=== PATIENT | female | born 1960 | race Caucasian/White ===

== ENCOUNTER 2018-03-04 09:44 | Inpatient (IN) ==
[2018-03-04] MEDS ORDERED: Morphine Inj 4 MG/ML Vial IV.PUSH ONE (09:54)
--- NOTE | 2018-03-04 09:59 | ED ---
HPI General Chief complaint: Back Pain/Injury Stated complaint: Left Flank pain complaint Time Seen by Provider: 03/04/18 09:49 Source: patient Mode of arrival: EMS Limitations: no limitations History of Present Illness HPI narrative: 58-year-old female brought in by ambulance from home for evaluation of severe left flank pain, nausea, and vomiting. Patient reports that the pain started at around 3:30 PM yesterday evening, has been constant, progressively worsening, described as cramping, nonradiating. The pain kept her up throughout the night, and this morning she began to experience nausea and vomiting. She reports history of nonfunctioning right kidney secondary to ureteral stricture as a child. She reports history of pancreatitis, however she states that the pain today feels different. She denies fevers or chills. No paresthesias or motor deficits. No dysuria, hematuria, or pyuria. She tried taking Tylenol and hydrocodone at home without improvement in her pain. Related Data Home Medications Medication Instructions Recorded Confirmed escitalopram oxalate 15 mg PO DAILY 03/04/18 03/04/18 hydrocodone-acetaminophen 1 tab PO Q12H PRN 03/04/18 03/04/18 Allergies Allergy/AdvReac Type Severity Reaction Status Date / Time No Known Allergies Allergy Verified 03/04/18 09:54 Review of Systems ROS: all other systems reviewed are negative [facility] Medical History Medical History Depression (Acute) Osteoporosis (Acute) Pancreatitis (Acute) Social History Social History Second Hand Smoke Exposure: Yes Smoking Status: Current every day smoker Tobacco Type: Cigarettes How Often Do You Have a Drink Containing Alcohol: Never Recent Travel in [facility] within the Last 8 Weeks: No Recent Out of Country Travel within the Last 8 Weeks: No Exam Narrative Exam Narrative: GENERAL: Well-developed, thin, appears very uncomfortable SKIN: Focused skin assessment warm/dry. No rash. HEAD: Atraumatic. Normocephalic. EYES: Pupils equal and round. No scleral icterus. No injection or drainage. ENT: No nasal bleeding or discharge. Mucous membranes pink and moist. NECK: Trachea midline. No JVD. CARDIOVASCULAR: Regular rate and rhythm. RESPIRATORY: No accessory muscle use. Clear to auscultation. Breath sounds equal bilaterally. GASTROINTESTINAL: Abdomen soft, non-tender, nondistended. MUSCULOSKELETAL: No obvious deformities. No clubbing. No cyanosis. No edema. No midline vertebral step-off or tenderness. No right CVA tenderness. Mild left CVA tenderness. NEUROLOGICAL: Awake and alert. No obvious cranial nerve deficits. Motor grossly within normal limits. Normal speech. PSYCHIATRIC: Appropriate mood and affect; insight and judgment normal. Course Initial Documented Vital Signs Pulse Rate 90 03/04/18 09:49 Respiratory Rate 20 03/04/18 09:49 Blood Pressure 145/94 H 03/04/18 09:49 Pulse Oximetry 96 03/04/18 09:49 Last Documented Vital Signs Pulse Rate 85 03/04/18 09:55 Respiratory Rate 20 03/04/18 09:55 Blood Pressure 145/94 H 03/04/18 09:49 Pulse Oximetry 97 03/04/18 09:55 Critical Care Time Critical Care Time: Yes Total Critical Care Time: 35 Attestation: Aggregate critical care time was 35 minutes. Time to perform other separately billable procedures was not included in the critical care time. My time did not include minutes spent treating any other patients simultaneously or on activities that did not directly contribute to the patient's treatment. The services I provided to this patient were to treat and/or prevent clinically significant deterioration that could result in: , sepsis, permanent disability I provided critical care services requiring my management, as noted below: Chart data review, documentation time, medication orders and management, vital sign assessments/reviewing monitor data, ordering and reviewing lab tests, ordering and interpreting/reviewing x-rays and diagnostic studies, care of the patient and discussion of the patient with the admitting physicians. Medical Decision Making MDM Narrative Medical decision making narrative: Vital signs reviewed. Labs reviewed and the patient has a slight leukocytosis of 17,000 and a lipase of 20,000. UA is not suggestive of UTI. CT abdomen pelvis: CONCLUSION:1. Dilatation of the common bile duct measuring up to 1.3 cm with an 8 to 9 mm round soft tissue masslike structure which extends into the fluid- filled duodenum. 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 The gallbladder is unremarkable.2. Fluid in the left upper abdomen surrounding portions of the body and tail the pancreas as well as portions of the spleen. The finding is nonspecific and the differential diagnosis includes pancreatitis.The left kidney appears unremarkable.3. Small atrophic right kidney. Patient was given 4 mg of morphine with some improvement in her initial pain. Upon return from CT scan her pain began to significantly worsen. She will be given a dose of Dilaudid. She was also given a liter of normal saline IV bolus and started on a continuous normal saline drip. She was made aware of all findings. Her LFTs are normal. 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 Case discussed with hospitalist Dr. Arevalo who will admit the patient to his service. Medical Screen Exam Complete: Yes Emergency Medical Condition: Yes Differential Diagnosis Differential Diagnosis: Nephrolithiasis, ureterolithiasis, pyelonephritis, musculoskeletal pain, pancreatitis, gastritis, dissection/AAA Lab Data Result diagrams: 03/04/18 10:00 03/04/18 10:00 Lab Results 03/04/18 03/04/18 03/04/18 Range/Units 10:00 10:00 10:00 WBC 17.9 H (4.0-11.0) th/mm3 RBC 4.23 (4.00-5.30) mil/mm3 Hgb 13.9 (11.6-15.3) gm/dL Hct 41.1 (35.0-46.0) % MCV 97.1 (80.0-100.0) fL MCH 32.8 (27.0-34.0) pg MCHC 33.8 (32.0-36.0) % RDW 14.4 (11.6-17.2) % Plt Count 390 (150-450) th/mm3 MPV 7.3 (7.0-11.0) fL Neut % (Auto) 80.0 H (16.0-70.0) % Lymph % (Auto) 14.1 (9.0-44.0) % Woods % (Auto) 4.7 (0.0-8.0) % Eos % (Auto) 1.0 (0.0-4.0) % Baso % (Auto) 0.2 (0.0-2.0) % Neut # (Auto) 14.4 H (1.8-7.7) th/mm3 Lymph # (Auto) 2.5 (1.0-4.8) th/mm3 Woods # (Auto) 0.8 (0.0-0.9) th/mm3 Eos # (Auto) 0.2 (0.0-0.4) th/mm3 Baso # (Auto) 0.0 (0.0-0.2) th/mm3 WBC Differential . Differential Comment Auto diff final PT 10.7 (9.8-11.6) sec INR 1.1 Ratio APTT 20.9 L (23.4-31.7) sec Sodium 139 (136-145) meq/L Potassium 3.9 (3.5-5.1) meq/L Chloride 108 H (98-107) meq/L Carbon Dioxide 19.7 L (21.0-32.0) meq/L Anion Gap 11 (5-15) meq/L BUN 13 (7-18) mg/dL Creatinine 1.16 H (0.50-1.00) mg/dL Estimated GFR 48 L (>89) mL/min Random Glucose 164 H (74-106) mg/dL Calcium 8.6 (8.5-10.1) mg/dL Magnesium 1.7 (1.5-2.5) mg/dL Total Bilirubin 0.5 (0.2-1.0) mg/dL AST 18 (15-37) U/L ALT 14 (10-53) U/L Alkaline Phosphatase 92 (45-117) U/L Total Protein 7.5 (6.4-8.2) g/dL Albumin 4.1 (3.4-5.0) g/dL Lipase 24420 H (73-393) U/L Urine Color (Yellw/Straw) Urine Clarity (Clear) Urine pH (5.0-8.5) Ur Specific [place] (1.002-1.035) Urine Protein (Neg-Trace) mg/dL Urine Glucose (UA) (Negative) mg/dL Urine Ketones (Negative) mg/dL Urine Occult Blood (Negative) Urine Nitrate (Negative) Urine Bilirubin (Negative) Urine Urobilinogen (Less than 2) mg/dL Ur Leukocyte Esterase (Negative) Urine RBC (0-3) /hpf Urine WBC (0-5) /hpf Ur Squamous Epith Cells (0-5) /hpf Urine Mucus (Occasional) /lpf Micro UA Comment Ur Microscopic Review Urine Culture Comments 03/04/18 Range/Units 10:00 WBC (4.0-11.0) th/mm3 RBC (4.00-5.30) mil/mm3 Hgb (11.6-15.3) gm/dL Hct (35.0-46.0) % MCV (80.0-100.0) fL MCH (27.0-34.0) pg MCHC (32.0-36.0) % RDW (11.6-17.2) % Plt Count (150-450) th/mm3 MPV (7.0-11.0) fL Neut % (Auto) (16.0-70.0) % Lymph % (Auto) (9.0-44.0) % Woods % (Auto) (0.0-8.0) % Eos % (Auto) (0.0-4.0) % Baso % (Auto) (0.0-2.0) % Neut # (Auto) (1.8-7.7) th/mm3 Lymph # (Auto) (1.0-4.8) th/mm3 Woods # (Auto) (0.0-0.9) th/mm3 Eos # (Auto) (0.0-0.4) th/mm3 Baso # (Auto) (0.0-0.2) th/mm3 WBC Differential Differential Comment PT (9.8-11.6) sec INR Ratio APTT (23.4-31.7) sec Sodium (136-145) meq/L Potassium (3.5-5.1) meq/L Chloride (98-107) meq/L Carbon Dioxide (21.0-32.0) meq/L Anion Gap (5-15) meq/L BUN (7-18) mg/dL Creatinine (0.50-1.00) mg/dL Estimated GFR (>89) mL/min Random Glucose (74-106) mg/dL Calcium (8.5-10.1) mg/dL Magnesium (1.5-2.5) mg/dL Total Bilirubin (0.2-1.0) mg/dL AST (15-37) U/L ALT (10-53) U/L Alkaline Phosphatase (45-117) U/L Total Protein (6.4-8.2) g/dL Albumin (3.4-5.0) g/dL Lipase (73-393) U/L Urine Color Yellow (Yellw/Straw) Urine Clarity Clear (Clear) Urine pH 5.0 (5.0-8.5) Ur Specific [place] 1.013 (1.002-1.035) Urine Protein Negative (Neg-Trace) mg/dL Urine Glucose (UA) Negative (Negative) mg/dL Urine Ketones Negative (Negative) mg/dL Urine Occult Blood Negative (Negative) Urine Nitrate Negative (Negative) Urine Bilirubin Negative (Negative) Urine Urobilinogen Less than 2 (Less than 2) mg/dL Ur Leukocyte Esterase Negative (Negative) Urine RBC 1 (0-3) /hpf Urine WBC Less than 1 (0-5) /hpf Ur Squamous Epith Cells 1 (0-5) /hpf Urine Mucus Few H (Occasional) /lpf Micro UA Comment Culture not ind Ur Microscopic Review Not Reportable Urine Culture Comments Culture not ind Imaging Data Radiologist's impression: Abdomen/Pelvis CT 03/04/18 09:54 CONCLUSION: 1. Dilatation of the common bile duct measuring up to 1.3 cm with an 8 to 9 mm round soft tissue masslike structure which extends into the fluid-filled duodenum. 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 The gallbladder is unremarkable. 2. Fluid in the left upper abdomen surrounding portions of the body and tail the pancreas as well as portions of the spleen. The finding is nonspecific and the differential diagnosis includes pancreatitis. The left kidney appears unremarkable. 3. Small atrophic right kidney. Discharge Plan Discharge Disposition Patient Disposition: ED Admit(ED Internal Use Only) Discharge Condition Condition: Fair Discharge Details Diagnosis: Acute pancreatitis Physicians Team ED Provider: Butch Burleson Primary Care Provider: [facility] /Orders / Referrals /Forms Prescriptions: No Action hydrocodone-acetaminophen 10-325 mg Tablet 1 tab PO Q12H PRN (Reason: Pain) RF: 0 escitalopram oxalate 10 mg Tablet 15 mg PO DAILY RF: 0 Status ED Status: With Doctor
[2018-03-04 10:20] LABS: Baso % (Auto) 0.2 % (0.0-2.0); Eos # (Auto) 0.2 th/mm3 (0.0-0.4); Hematocrit 41.1 % (35.0-46.0); Hemoglobin 13.9 gm/dL (11.6-15.3); Lymph # (Auto) 2.5 th/mm3 (1.0-4.8); Lymph % (Auto) 14.1 % (9.0-44.0); Mean Corpuscular HGB Conc 33.8 % (32.0-36.0); Mean Corpuscular Hemoglobin 32.8 pg (27.0-34.0); Mean Corpuscular Volume 97.1 fL (80.0-100.0); Mean Platelet Volume 7.3 fL (7.0-11.0); Mono # (Auto) 0.8 th/mm3 (0.0-0.9); Mono % (Auto) 4.7 % (0.0-8.0); Neut # (Auto) 14.4 th/mm3 (1.8-7.7); Platelet Count 390 th/mm3 (150-450); Red Blood Count 4.23 mil/mm3 (4.00-5.30); Red Cell Distribution Width 14.4 % (11.6-17.2); White Blood Count 17.9 th/mm3 (4.0-11.0)
[2018-03-04 10:28] LABS: Activated Partial Thrombo Time 20.9 sec (23.4-31.7); INR 1.1 Ratio; Prothrombin Time 10.7 sec (9.8-11.6)
[2018-03-04 10:30] LABS: Albumin 4.1 g/dL (3.4-5.0); Anion Gap 11 meq/L (5-15); Aspartate Aminotransferase 18 U/L (15-37); Blood Urea Nitrogen 13 mg/dL (7-18); Calcium 8.6 mg/dL (8.5-10.1); Carbon Dioxide 19.7 meq/L (21.0-32.0); Chloride 108 meq/L (98-107); Glomerular Filtration Rate 48 mL/min (>89); Glucose,Random 164 mg/dL (74-106); Magnesium 1.7 mg/dL (1.5-2.5); Potassium 3.9 meq/L (3.5-5.1); Sodium 139 meq/L (136-145)
[2018-03-04 10:32] LABS: Alanine Aminotransferase 14 U/L (10-53)
[2018-03-04 10:33] LABS: Alkaline Phosphatase 92 U/L (45-117); Total Protein 7.5 g/dL (6.4-8.2)
[2018-03-04 10:37] LABS: Lipase 28791 U/L (73-393)
[2018-03-04] MEDS ORDERED: Sod Chloride 0.9% Inj 1,000 ML IV.SIG SCH (11:00)
[2018-03-04 11:33] LABS: Bilirubin,Urine Negative (Negative); Clarity,Urine Clear (Clear); Color,Urine Yellow (Yellw/Straw); Glucose,Urine (UA) Negative (Negative); Leukocyte Esterase,Urine Negative (Negative); Mucus,Urine Few /lpf (Occasional); Nitrite,Urine Negative (Negative); Specific Gravity,Urine 1.013 (1.002-1.035); Squamous Epithelial Cell,Urine 1 /hpf (0-5)
--- NOTE | 2018-03-04 11:43 | CT ---
EXAM DATE: 03/04/2018 11:25 AM EST AGE/SEX: 58 years / Female INDICATIONS: Left flank pain. Nausea and vomiting. CLINICAL DATA: This is the patient's initial encounter. Patient reports that signs and symptoms have been present for 1 day and indicates a pain score of 8/10. MEDICAL/SURGICAL HISTORY: Pancreatitis. Osteoporosis. None. ORAL CONTRAST: No oral contrast ingested. RADIATION DOSE: 4.49 CTDI (mGy) COMPARISON: No prior exams available for comparison. TECHNIQUE: Multiple contiguous axial images were obtained through the abdomen and pelvis following b olus infusion of 96 ml Omnipaque 350 (iohexol) nonionic water-soluble contrast as a single exam dos e. No oral contrast ingested. Using automated exposure control and adjustment of the mA and/or kV ac cording to patient size, radiation dose was kept as low as reasonably achievable to obtain optimal di agnostic quality images. DICOM format image data is available electronically for review and comparis on. FINDINGS: Lower Lungs: The visualized lower lungs are clear. Liver: The liver is normal in size and shape with no focal mass or intrahepatic biliary ductal dilata tion. The common bile duct is dilated and measures up to 1.3 cm in diameter. This tapers down slightl y at the level of the head of the pancreas with 8 to 9 mm rounded soft tissue masslike structure whic h extends into the fluid-filled duodenum. There is mild hepatic steatosis. The gallbladder appears un remarkable with no calcified gallstones. Spleen: Homogeneous density without enlargement. There is surrounding ascitic fluid greatest along t he posterior and medial spleen. Pancreas: The pancreas is normal in size, shape and attenuation value with no focal lesion. There is fluid surrounding portions of the body and tail with fluid extending into the left upper quadrant jones rrounding portions of the spleen.. Kidneys: The left kidney is unremarkable in appearance. The right kidney is extremely small and atro phic with minimal residual enhancing cortical tissue. Adrenal Glands: Unremarkable. Aorta: The aorta and proximal iliac vessels are grossly unremarkable without aneurysmal dilation. Bowel/Mesentery: The bowel loops are grossly unremarkable. The cecum and sigmoid colon have a normal configuration. Abdominal Wall: Intact. Retroperitoneum: No evidence of adenopathy in the retrocrural, para-aortic, or deep pelvic regions. Bladder: Contours are smooth. Reproductive Organs: No abnormal masses or calcifications seen. Inguinal: The inguinal region is unremarkable without evidence of adenopathy. Bony Structures: Degenerative changes, scoliosis and osteopenia are present. CONCLUSION: 1. Dilatation of the common bile duct measuring up to 1.3 cm with an 8 to 9 mm round soft tissue mas slike structure which extends into the fluid-filled duodenum. This is of concern for possible ampulla ry tumor. The gallbladder is unremarkable. 2. Fluid in the left upper abdomen surrounding portions of the body and tail the pancreas as well as portions of the spleen. The finding is nonspecific and the differential diagnosis includes pancreati tis. The left kidney appears unremarkable. 3. Small atrophic right kidney. Electronically signed by: Molina Mcdaniels MD Board Certified Radiologist 03/04/2018 11:42 AM WES T
[2018-03-04] MEDS ORDERED: HYDROmorphone PF Inj 2 MG/ML Vial IV.PUSH ONE (11:59)
[2018-03-04] MEDS ORDERED: Sod Chloride 0.9% Inj 1,000 ML IV.CONT SCH (13:00)
--- NOTE | 2018-03-04 13:08 | P.HPIM ---
History of Present Illness Primary Care Physician: [facility] History of Present Illness: This patient is a 58 y/o F with a diagnosis of osteoarthritis, hx of right ureteral stricture which led to right sided kidney failure. She has an extensive tobacco smoking hx. She presents to the ED with complaints of abdominal pain for the past few days that worsened yesterday. She also began to have nausea and vomiting. She has a hx of pancreatitis nearly one yr ago however is unsure of what the cause was at that time. She denies any recent alcohol use. She denies any fevers or chills. No other complaints from the patient. No chest pain, no diarrhea, last bm two days ago. PMH right ureteral stricture, osteoarthritis surg hx right hand surgery x 5 after a crush injury in the social hx 1 /2 ppd tobacco smoking since age 19, drinks etoh socially, denies hx of drug use fam hx cad in her father Inpatient Certification: I certify that the inpatient services were ordered in accordance with Medicare regulations governing the order. This includes certification that hospital inpatient services are reasonable and necessary and in the case of services not specified as inpatient-only under 42 CFR 419.22(n), that they are appropriately provided as inpatient services in accordance to with the 2-midnight benchmark under 43 CFR 412.3(e) Estimated Total Length of Stay (Days): 3 Plans for Post Hospital Care: Home Review of Systems All other systems reviewed negative except as stated in HPI PMFSH - History History Provided By: Patient, Medical Claims Representative / EMT - Medical History Medical History: Medical History (Last Updated 03/04/18 @ 09:55 by Lary Schmitt RN) Depression Osteoporosis Pancreatitis - Tobacco History Second Hand Smoke Exposure: Yes Tobacco Use In Past 30 Days: Yes Smoking Status: Current every day smoker Tobacco Type: Cigarettes - Alcohol History How Often Do You Have a Drink Containing Alcohol: Never - Travel History Recent Travel in the [place] Within the Last 8 Weeks: No Recent Travel Out of the Country Within the Last 8 Weeks: No - Immunization History Tetanus Immunization: <5 Years Medications and Allergies Active Medications: Active Medications Sodium Chloride (Ns Inj) 1,000 mls @ 150 mls/hr IV.CONT .[id number] MARIANNE Morphine Sulfate (Morphine Inj) 2 mg IV.PUSH Q4H PRN PRN Reason: Acute Pain Ondansetron HCl (Zofran Inj) 4 mg IV.PUSH Q6H PRN PRN Reason: NAUSEA OR VOMITING Sodium Chloride (Ns Flush) 2 ml IV.FLUSH PRN PRN PRN Reason: FLUSH AFTER USING IV ACCESS Last Admin: 03/04/18 10:00 Dose: 2 ml Allergies Allergy/AdvReac Type Severity Reaction Status Date / Time No Known Allergies Allergy Verified 03/04/18 09:54 Home Medications Medication Instructions Recorded Confirmed Type escitalopram oxalate 15 mg PO DAILY 03/04/18 03/04/18 History hydrocodone-acetaminophen 1 tab PO Q12H PRN 03/04/18 03/04/18 History Exam Vital signs: Vital Signs 03/04/18 09:49 03/04/18 09:55 03/04/18 12:52 Pulse Rate 90 85 87 Respiratory Rate 20 20 18 Blood Pressure 145/94 H Pulse Oximetry 96 97 95 Intake & Output 03/03/18 03/04/18 03/04/18 18:59 06:59 18:59 Intake Total 1000 / 1000 Balance 1000 / 1000 Weight 45.813 kg Intake: IV 1000 / 1000 NS Inj 1,000 ML @ 1000 mls/hr 1000 / 1000 IV.SIG BOLUS [facility] Rx#:[id number] Narrative: Alert and oriented x 3 S1 S2 CTA b/l Complains of diffuse abd pain, pain on palpation in all 4 quadrants. Bowel sounds pos no edema, no palpable lymphadenopathy no neurological deficits. Results - Labs CBC & Chem 7: 03/04/18 10:00 03/04/18 10:00 Labs: Short CBC 03/04/18 Range/Units 10:00 WBC 17.9 H (4.0-11.0) th/mm3 Hgb 13.9 (11.6-15.3) gm/dL Hct 41.1 (35.0-46.0) % Plt Count 390 (150-450) th/mm3 BMP 03/04/18 10:00 Sodium 139 Potassium 3.9 Chloride 108 H Carbon Dioxide 19.7 L BUN 13 Creatinine 1.16 H Calcium 8.6 Liver Function 03/04/18 Range/Units 10:00 Total Bilirubin 0.5 (0.2-1.0) mg/dL AST 18 (15-37) U/L ALT 14 (10-53) U/L Alkaline Phosphatase 92 (45-117) U/L Albumin 4.1 (3.4-5.0) g/dL Urine 03/04/18 Range/Units 10:00 Urine Color Yellow (Yellw/Straw) Urine Clarity Clear (Clear) Urine pH 5.0 (5.0-8.5) Ur Specific [place] 1.013 (1.002-1.035) Urine Protein Negative (Neg-Trace) mg/dL Urine Glucose (UA) Negative (Negative) mg/dL - Imaging Impressions Abdomen/Pelvis CT 03/04/18 09:54 CONCLUSION: 1. Dilatation of the common bile duct measuring up to 1.3 cm with an 8 to 9 mm round soft tissue masslike structure which extends into the fluid-filled duodenum. 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 The gallbladder is unremarkable. 2. Fluid in the left upper abdomen surrounding portions of the body and tail the pancreas as well as portions of the spleen. The finding is nonspecific and the differential diagnosis includes pancreatitis. The left kidney appears unremarkable. 3. Small atrophic right kidney. Caprini VTE Risk Assessment Caprini VTE Risk Assessment: Moderate/High Risk (score >= 2) Caprini Risk Assessment Model: Point Value = 1 Point Value = 2 Point Value = 3 Point Value = 5 Age 41-60 Minor surgery BMI > 25 kg/m2 Swollen legs Varicose veins or History of unexplained or recurrent spontaneous Oral contraceptives or hormone replacement Sepsis (< 1 month) Serious lung disease, including pneumonia (< 1 month) Abnormal pulmonary function Acute myocardial infarction Congestive heart failure (< 1 month) History of inflammatory bowel disease Medical patient at bed rest Age 61-74 Arthroscopic surgery Major open surgery (> 45 min) Laparoscopic surgery (> 45 min) Malignancy Confined to bed (> 72 hours) Immobilizing plaster cast Central venous access Age >= 75 History of VTE Family history of VTE Factor V Leiden Prothrombin [id number] Lupus anticoagulant Anticardiolipin antibodies Elevated serum homocysteine Heparin-induced thrombocytopenia Other congenital or acquired thrombophilia Stroke (< 1 month) Elective arthroplasty Hip, pelvis, or leg fracture Acute spinal cord injury (< 1 month) Prophylaxis Regimen: Total Risk Factor Score Risk Level Prophylaxis Regimen 0-1 Low Early ambulation 2 Moderate Order ONE of the following: *Sequential Compression Device (SCD) *Heparin 5000 units SQ BID 3-4 Higher Order ONE of the following medications: *Heparin 5000 units SQ TID *Enoxaparin/Lovenox 40 mg SQ daily (WT < 150 kg, CrCl > 30 mL/min) *Enoxaparin/Lovenox 30 mg SQ daily (WT < 150 kg, CrCl > 10-29 mL/min) *Enoxaparin/Lovenox 30 mg SQ BID (WT < 150 kg, CrCl > 30 mL/min) AND/OR *Sequential Compression Device (SCD) 5 or more Highest Order ONE of the following medications: *Heparin 5000 units SQ TID (Preferred with Epidurals) *Enoxaparin/Lovenox 40 mg SQ daily (WT < 150 kg, CrCl > 30 mL/min) *Enoxaparin/Lovenox 30 mg SQ daily (WT < 150 kg, CrCl > 10-29 mL/min) *Enoxaparin/Lovenox 30 mg SQ BID (WT < 150 kg, CrCl > 30 mL/min) AND *Sequential Compression Device (SCD) Assessment and Plan - Plan This patient is a 58 y/o F with a diagnosis of osteoarthritis, hx of right ureteral stricture which led to right sided kidney failure. She has an extensive tobacco smoking hx. She presents to the ED with complaints of abdominal pain for the past few days that worsened yesterday. She also began to have nausea and vomiting. She has a hx of pancreatitis nearly one yr ago however is unsure of what the cause was at that time. She denies any recent alcohol use. She denies any fevers or chills. 1. 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 WBC count elevated. No fevers, no chills. Ct abd/pelv shows dilation of the cbd 1.3 cm with 9mm round mass that extends into the duodenum. Pancreas shows findings consistent with pancreatitis [place] [id number] Atrophic right kidney Patient will be kept on ivf at 175, patient bolused 1 L in the ED. Will continue to monitor the patient GI consulted, will follow up with their recs Strict NPO. Morphine for pain. Will adjust depending on patients needs. No active signs of infection other than leukocytosis, will continue to monitor. If the patient spikes a fever we will start IV antibiotics. 3. Tobacco abuse Patient advised to quit smoking. Nicotine patch. DVT prophylaxis with Heparin.
[2018-03-04] MEDS: Morphine Sulfate Inj 2 MG/ML Vial IV.PUSH PRN ×3 (15:07→23:03)
[2018-03-04] MEDS: MEROPENEM VABORBACTAM IV.SIG SCH (16:53)
[2018-03-04] MEDS: SODIUM CHLOR 0.9% IV.SIG SCH (16:53)
--- NOTE | 2018-03-04 18:42 | P.CONGI ---
History of Present Illness Consult date: 03/04/18 Consult reason: Acute pancreatitis ampullary tumor Chief complaint: Acute pancreatitis History of Present Illness: This patient is a 58-year-old female with past medical history significant for depression, osteoporosis, pancreatitis, and osteoarthritis. Patient also reports history of ureteral stricture and right-sided kidney failure. Upon consultation, patient reports that she has had 3 episodes of pancreatitis. She states her last episode was 9 years ago. Patient denies any use of EtOH. States that she quit drinking 1 year ago. Patient denies any diarrhea fever or chills. Patient endorses smoking tobacco 1 pack/day. She denies any use of illicit drugs and denies any known family history of gastrointestinal disorders. 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 Review of Systems All other systems reviewed negative except as stated in HPI PMFSH - History History Provided By: Patient, [employer] / EMT - Medical History Medical History: Medical History (Last Updated 03/04/18 @ 09:55 by Lary Schmitt RN) Depression Osteoporosis Pancreatitis - Tobacco History Second Hand Smoke Exposure: Yes Tobacco Use In Past 30 Days: Yes Smoking Status: Current every day smoker Tobacco Type: Cigarettes - Alcohol History How Often Do You Have a Drink Containing Alcohol: Never - Travel History Recent Travel in the [place] Within the Last 8 Weeks: No Recent Travel Out of the Country Within the Last 8 Weeks: No - Immunization History Tetanus Immunization: <5 Years Medications and Allergies Active Medications: Active Medications Heparin Sodium (Porcine) (Heparin Inj) 5,000 units SQ Q12HR [facility] Lactated Ringer's (Lr 1000 Ml Inj) 1,000 mls @ 175 mls/hr IV.CONT .Q5H43M [facility] Last Admin: 03/04/18 16:52 Dose: 175 mls/hr Meropenem 1,000 mg/ Sodium (Chloride) 250 mls @ 83.333 mls/hr IV.SIG Q12H [facility] Last Admin: 03/04/18 16:53 Dose: 83.33 mls/hr Morphine Sulfate (Morphine Inj) 2 mg IV.PUSH Q4H PRN PRN Reason: Acute Pain Last Admin: 03/04/18 15:07 Dose: 2 mg Ondansetron HCl (Zofran Inj) 4 mg IV.PUSH Q6H PRN PRN Reason: NAUSEA OR VOMITING Last Admin: 03/04/18 16:53 Dose: 4 mg Sodium Chloride (Ns Flush) 2 ml IV.FLUSH PRN PRN PRN Reason: FLUSH AFTER USING IV ACCESS Last Admin: 03/04/18 10:00 Dose: 2 ml Allergies Allergy/AdvReac Type Severity Reaction Status Date / Time No Known Allergies Allergy Verified 03/04/18 09:54 Home Medications Medication Instructions Recorded Confirmed Type escitalopram oxalate 15 mg PO DAILY 03/04/18 03/04/18 History hydrocodone-acetaminophen 1 tab PO Q12H PRN 03/04/18 03/04/18 History Exam Vital signs: Vital Signs 03/04/18 09:49 03/04/18 09:55 03/04/18 12:52 Temperature Pulse Rate 90 85 87 Respiratory Rate 20 20 18 Blood Pressure 145/94 H Pulse Oximetry 96 97 95 03/04/18 14:03 03/04/18 16:00 Temperature 98.2 F 97.4 F L Pulse Rate 111 H 119 H Respiratory Rate 20 20 Blood Pressure 145/93 H 164/80 H Pulse Oximetry 96 94 L Intake & Output 03/03/18 03/04/18 03/04/18 18:59 06:59 18:59 Intake Total 1000 / 1000 Output Total 700 / 700 Balance 300 / 300 Weight 45.813 kg Intake: IV 1000 / 1000 NS Inj 1,000 ML @ 1000 mls/hr 1000 / 1000 IV.SIG BOLUS [facility] Rx#:[id number] Output: Urine 700 / 700 - Constitutional chronically ill appearing - Routine HEENT Exam Head: Present: normocephalic - Routine Neck Exam Present: supple - Routine Respiratory Exam Present: CTA bilaterally - Routine Cardiovascular Exam Present: RRR - Routine Abdominal Exam Present: soft, normoactive bowel sounds, tenderness. Absent: distended - Routine Skin Exam Present: dry, warm - Routine Neurological Exam Present: alert Results - Labs CBC & Chem 7: 03/04/18 10:00 03/04/18 10:00 Labs: Laboratory Results - last 24 hr 03/04/18 03/04/18 03/04/18 10:00 10:00 10:00 WBC 17.9 H RBC 4.23 Hgb 13.9 Hct 41.1 MCV 97.1 MCH 32.8 MCHC 33.8 RDW 14.4 Plt Count 390 MPV 7.3 Neut % (Auto) 80.0 H Lymph % (Auto) 14.1 [place] % (Auto) 4.7 Eos % (Auto) 1.0 Baso % (Auto) 0.2 Neut # (Auto) 14.4 H Lymph # (Auto) 2.5 [place] # (Auto) 0.8 Eos # (Auto) 0.2 Baso # (Auto) 0.0 WBC Differential . Differential Comment Auto diff final PT 10.7 INR 1.1 APTT 20.9 L Sodium 139 Potassium 3.9 Chloride 108 H Carbon Dioxide 19.7 L Anion Gap 11 BUN 13 Creatinine 1.16 H Estimated GFR 48 L Random Glucose 164 H Calcium 8.6 Magnesium 1.7 Total Bilirubin 0.5 AST 18 ALT 14 Alkaline Phosphatase 92 Total Protein 7.5 Albumin 4.1 Lipase 77581 H Urine Color Urine Clarity Urine pH Ur Specific [place] Urine Protein Urine Glucose (UA) Urine Ketones Urine Occult Blood Urine Nitrate Urine Bilirubin Urine Urobilinogen Ur Leukocyte Esterase Urine RBC Urine WBC Ur Squamous Epith Cells Urine Mucus Micro UA Comment Ur Microscopic Review Urine Culture Comments 03/04/18 10:00 WBC RBC Hgb Hct MCV MCH MCHC RDW Plt Count MPV Neut % (Auto) Lymph % (Auto) [place] % (Auto) Eos % (Auto) Baso % (Auto) Neut # (Auto) Lymph # (Auto) [place] # (Auto) Eos # (Auto) Baso # (Auto) WBC Differential Differential Comment PT INR APTT Sodium Potassium Chloride Carbon Dioxide Anion Gap BUN Creatinine Estimated GFR Random Glucose Calcium Magnesium Total Bilirubin AST ALT Alkaline Phosphatase Total Protein Albumin Lipase Urine Color Yellow Urine Clarity Clear Urine pH 5.0 Ur Specific [place] 1.013 Urine Protein Negative Urine Glucose (UA) Negative Urine Ketones Negative Urine Occult Blood Negative Urine Nitrate Negative Urine Bilirubin Negative Urine Urobilinogen Less than 2 Ur Leukocyte Esterase Negative Urine RBC 1 Urine WBC Less than 1 Ur Squamous Epith Cells 1 Urine Mucus Few H Micro UA Comment Culture not ind Ur Microscopic Review Not Reportable Urine Culture Comments Culture not ind - Imaging Impressions Abdomen/Pelvis CT 03/04/18 09:54 CONCLUSION: 1. Dilatation of the common bile duct measuring up to 1.3 cm with an 8 to 9 mm round soft tissue masslike structure which extends into the fluid-filled duodenum. 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 The gallbladder is unremarkable. 2. Fluid in the left upper abdomen surrounding portions of the body and tail the pancreas as well as portions of the spleen. The finding is nonspecific and the differential diagnosis includes pancreatitis. The left kidney appears unremarkable. 3. Small atrophic right kidney. Assessment and Plan (1) Acute pancreatitis Status: Acute Code(s): K85.90 - Acute pancreatitis without necrosis or infection, unspecified - Plan This patient is a 58-year-old female with past medical history significant for depression, osteoporosis, pancreatitis, and osteoarthritis. Patient also reports history of ureteral stricture and right-sided kidney failure. Upon consultation, patient reports that she has had 3 episodes of pancreatitis. She states her last episode was 9 years ago. Patient denies any use of EtOH. States that she quit drinking 1 year ago. Patient denies any diarrhea fever or chills. Patient endorses smoking tobacco 1 pack/day. She denies any use of illicit drugs and denies any known family history of gastrointestinal disorders. 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 Acute pancreatitis Patient reports 3 noted episodes of pancreatitis. Last being 9 years ago. Patient denies any use of EtOH. She states she quit 1 year ago. Does report now drinking occasional EtOH socially. 03/04/2018 CT abdomen and pelvis reveal the following- 1. Dilatation of the common bile duct measuring up to 1.3 cm with an 8 to 9 mm round soft tissue masslike structure which extends into the fluid-filled duodenum. 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 The gallbladder is unremarkable. 2. Fluid in the left upper abdomen surrounding portions of the body and tail the pancreas as well as portions of the spleen. The finding is nonspecific and the differential diagnosis includes pancreatitis. The left kidney appears unremarkable. 3. Small atrophic right kidney. WBC 17.9 hemoglobin 13.9 hematocrit 41.1 total bilirubin 0.5 AST 18 ALT 14 alk phos 92 lipase 28,791 Plan -Clear liquid diet -MRCP -CA 199 -Analgesics and antiemetics as per attending -Blood cultures x2 -Monitor labs-lipase -Meropenem 1 g IV every 12 hours -IV hydration -Infectious disease consult -Supportive care -Further recommendations to follow This patient has been seen by myself and Dr. Levine and this note is written on his behalf - Attending Attestation Dr. Levine (1) Acute pancreatitis Qualifiers: Pancreatitis type: other Acute pancreatitis complication: no infection or necrosis Qualified Code(s): K85.80 - Other acute pancreatitis without necrosis or infection
[2018-03-04] MEDS ORDERED: Gadobutrol PF 2 MMOL/2 ML Vial (for RAD) IV.SIG ONE (20:17)
[2018-03-04] MEDS: Heparin - SQ 10,000 UNITS/ML Vial SQ SCH (20:24)
--- NOTE | 2018-03-04 20:28 | MR ---
EXAM DATE: 03/04/2018 8:20 PM EST AGE/SEX: 58 years / Female INDICATIONS: Abnormal CT scan. CLINICAL DATA: This is the patient's initial encounter. Patient reports that signs and symptoms have been present for 1 day and indicates a pain score of 4/10. MEDICAL/SURGICAL HISTORY: None. . Right hand surgeries. COMPARISON: No prior exams available for comparison. TECHNIQUE: Multisequence, multiplanar MRI examination was performed without contrast and after the in travenous administration of 4.5 ml Gadavist (gadobutrol) contrast as a single exam dose. FINDINGS: There is a small left pleural effusion with slight ascites in the upper abdomen particularly in the p erihepatic space and left lung base consolidation is present. The right kidney is small and shrunken chronic in nature. Common bile duct measures 8 mm. A clear mass is not present, however there is a stricture involving distal common bile duct prior to ampulla of Vater with possible invagination of the ampulla into the duodenal lumen. CONCLUSION: 1. Dilated common bile duct and is a stricture that appears to be smooth involving the distal common bile duct at the level of the ampulla with possible slight invagination into the lumen of the duoden um. May consider further evaluation with direct visualization and endoscopy. Electronically signed by: Constance Fox MD Board Certified Radiologist 03/04/2018 8:27 PM EST
[2018-03-05] MEDS: Morphine Sulfate Inj 2 MG/ML Vial IV.PUSH PRN ×5 (02:57→23:03)
[2018-03-05] MEDS: MEROPENEM VABORBACTAM IV.SIG SCH ×2 (03:00→16:06)
[2018-03-05] MEDS: SODIUM CHLOR 0.9% IV.SIG SCH ×2 (03:00→16:06)
[2018-03-05 09:13] LABS: Baso % (Auto) 0.1 % (0.0-2.0); Hematocrit 37.6 % (35.0-46.0); Hemoglobin 12.7 gm/dL (11.6-15.3); Lymph # (Auto) 1.3 th/mm3 (1.0-4.8); Mean Corpuscular HGB Conc 33.8 % (32.0-36.0); Mean Corpuscular Hemoglobin 32.5 pg (27.0-34.0); Mean Corpuscular Volume 96.3 fL (80.0-100.0); Mean Platelet Volume 7.5 fL (7.0-11.0); Mono # (Auto) 1.1 th/mm3 (0.0-0.9); Neut # (Auto) 18.9 th/mm3 (1.8-7.7); Neut % (Auto) 88.9 % (16.0-70.0); Platelet Count 331 th/mm3 (150-450); Red Blood Count 3.91 mil/mm3 (4.00-5.30); Red Cell Distribution Width 14.2 % (11.6-17.2); White Blood Count 21.3 th/mm3 (4.0-11.0)
[2018-03-05] MEDS: Heparin - SQ 10,000 UNITS/ML Vial SQ SCH ×2 (09:38→23:03)
[2018-03-05 09:41] LABS: Anion Gap 8 meq/L (5-15); Blood Urea Nitrogen 15 mg/dL (7-18); Calcium 7.9 mg/dL (8.5-10.1); Carbon Dioxide 23.6 meq/L (21.0-32.0); Chloride 111 meq/L (98-107); Glucose,Random 101 mg/dL (74-106); Magnesium 1.7 mg/dL (1.5-2.5); Potassium 3.6 meq/L (3.5-5.1); Sodium 143 meq/L (136-145)
[2018-03-05 09:43] LABS: Lipase 4220 U/L (73-393)
--- NOTE | 2018-03-05 09:58 | P.PNIM ---
Subjective Interval history: Follow-up for acute pancreatitis, possible ampullary mass. Patient complains of significant abdominal pain, productive cough. No fever but has chills. Physical Exam Vital signs: Last Vital Signs Temp 98.3 F 03/05/18 07:03 Pulse 108 H 03/05/18 07:03 Resp 16 03/05/18 07:03 BP 152/84 H 03/05/18 07:03 Pulse Ox 96 03/05/18 07:03 Intake & Output 03/03/18 03/04/18 03/05/18 03/06/18 06:59 06:59 06:59 06:59 Intake Total 2500 / 2500 Output Total 1203 / 1203 Balance 1297 / 1297 Weight 48.9 kg GENERAL: Alert, NAD. SKIN: Warm and dry. HEAD: Normocephalic. EYES: No scleral icterus. No injection or drainage. NECK: Supple, trachea midline. No JVD or lymphadenopathy. CARDIOVASCULAR: Regular rhythm, tachycardic without murmurs, gallops, or rubs. RESPIRATORY: Diffuse coarse breath sounds, No wheezing noted. GASTROINTESTINAL: Abdomen soft, Tender to palpation krishna over epigastric area, nondistended. MUSCULOSKELETAL: No cyanosis, or edema. BACK: Nontender without obvious deformity. No CVA tenderness. Results Labs CBC & Chem 7: 03/05/18 07:55 03/05/18 07:55 Imaging Imaging: Impressions Abdomen/Pelvis CT 03/04/18 09:54 CONCLUSION: 1. Dilatation of the common bile duct measuring up to 1.3 cm with an 8 to 9 mm round soft tissue masslike structure which extends into the fluid-filled duodenum. 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 The gallbladder is unremarkable. 2. Fluid in the left upper abdomen surrounding portions of the body and tail the pancreas as well as portions of the spleen. The finding is nonspecific and the differential diagnosis includes pancreatitis. The left kidney appears unremarkable. 3. Small atrophic right kidney. Cholangiopancreatography MRI 03/04/18 15:14 CONCLUSION: 1. Dilated common bile duct and is a stricture that appears to be smooth involving the distal common bile duct at the level of the ampulla with possible slight invagination into the lumen of the duodenum. May consider further evaluation with direct visualization and endoscopy. Assessment and Plan (1) Acute pancreatitis: Code(s): K85.90 - Acute pancreatitis without necrosis or infection, unspecified Status: Acute Plan This patient is a 58 y/o F with a diagnosis of osteoarthritis, hx of right ureteral stricture which led to right sided kidney failure. She has an extensive tobacco smoking hx. She presents to the ED with complaints of abdominal pain for the past few days that worsened yesterday. She also began to have nausea and vomiting. She has a hx of pancreatitis several years ago however is unsure of what the cause was at that time. She denies any recent alcohol use. She denies any fevers or chills. Sepsis (tachycardic, leukocytosis, possible pancreatitis related infection) Patient presents with abd pain. Ct abd/pelv shows dilation of the cbd 1.3 cm with 9mm round mass that extends into the duodenum. Pancreas shows findings consistent with pancreatitis [place] [id number] upon admission. -Patient is on LR - will reduce to 75cc/hour. -GI is following. 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 Patient will likely need ERCP or EUS. -Morphine for pain. Will adjust depending on patients needs. -ID consulted. Patient is currently on Meropenem Left sided pleural effusion Cough -Will send sputum for C&S -Pleural effusion is thought to be related to pancreatitis. -will obtain Procalcitonin. Continue Meropenem. Tobacco abuse -Patient advised to quit smoking. Full code. Heparin SQ. _ (1) Acute pancreatitis Qualifiers: Acute pancreatitis complication: no infection or necrosis Pancreatitis type: other Qualified Code(s): K85.80 - Other acute pancreatitis without necrosis or infection
--- NOTE | 2018-03-05 10:45 | XR ---
EXAM DATE: 03/05/2018 10:33 AM EST AGE/SEX: 58 years / Female INDICATIONS: Congestion. CLINICAL DATA: This is the patient's initial encounter. Patient reports that signs and symptoms have been present for 1 day and indicates a pain score of 0/10. MEDICAL/SURGICAL HISTORY: None. . Right hand surgeries. COMPARISON: No prior exams available for comparison. FINDINGS: Single AP view of the thorax demonstrates layering hazy increased density involving the inferior left hemithorax consistent with a large left-sided pleural effusion. The lungs appear hyperinflated and o therwise clear. Heart size appears mildly enlarged. Pulmonary vasculature is obscured. Osseous struct ures are unremarkable. CONCLUSION: Mild cardiomegaly and large left-sided pleural effusion. Findings are stable from prior exam. Electronically signed by: Lianet Roberts MD Board Certified Radiologist 03/05/2018 10:44 AM [employer]
--- NOTE | 2018-03-05 12:11 | P.CONID ---
History of Present Illness Service: Infectious disease Consult date: 03/05/18 Requesting Physician: Jesus Levine Reason for Consult: Evaluate patient with severe pancreatitis Primary Care Provider: Physician [facility] History of Present Illness: Patient seen and examined. Records reviewed. Patient is a 58-year-old female, presented to the hospital with several day history of severe left-sided abdominal pain and into the flank area on the left side. She also started having nausea and vomiting. She has not had any fever chills or sweats. Patient apparently had a prior episode of pancreatitis about 9 years ago and this was after she had problem with her kidneys and had ureteral stricture found. After that episode of pancreatitis, she has not had any recurrence and has been doing well. She denies any significant alcohol abuse. She has not been on any new medications. Has not had any respiratory problem. She denies any dysuria. On presentation she had a white count of 17, 000, and is up to 21,000. Her lipase was up to 28,000. 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 There is also a large left pleural effusion seen. Infectious disease consultation has been requested to assist with evaluation and treatment of patient with pancreatitis. Review of Systems Constitutional: Reports anorexia, Denies chills, Denies fever(s) Eyes: Denies discharge, Denies dry eyes Ears, Nose, Mouth, and Throat: Denies difficulty swallowing, Denies pain with swallowing, Denies sore throat Cardiovascular: Reports shortness of breath, Denies chest pain Respiratory: Reports cough, Reports shortness of breath Gastrointestinal: Reports abdominal pain, Reports nausea, Reports vomiting, Denies loose stools, Denies pain with swallowing Genitourinary: Denies difficulty starting urination, Denies difficulty urinating , Denies painful urination Musculoskeletal: Denies joint pain, Denies joint swelling Skin/Breast: Denies rash, Denies sores, Denies wounds, Denies yellowing of the skin PMFSH - History History Provided By: Patient, Science Teacher / EMT - Medical History Medical History: Medical History (Last Updated 03/04/18 @ 09:55 by Lary Schmitt RN) Depression Osteoporosis Pancreatitis - Tobacco History Second Hand Smoke Exposure: Yes Tobacco Use In Past 30 Days: Yes Smoking Status: Current every day smoker Tobacco Type: Cigarettes - Alcohol History How Often Do You Have a Drink Containing Alcohol: Never - Travel History Recent Travel in the [place] Within the Last 8 Weeks: No Recent Travel Out of the Country Within the Last 8 Weeks: No - Immunization History Tetanus Immunization: <5 Years Medications and Allergies Active Medications: Active Medications Heparin Sodium (Porcine) (Heparin Inj) 5,000 units SQ Q12HR [facility] Last Admin: 03/05/18 09:38 Dose: 5,000 units Lactated Ringer's (Lr 1000 Ml Inj) 1,000 mls @ 175 mls/hr IV.CONT .Q5H43M [facility] Last Admin: 03/05/18 02:38 Dose: 175 mls/hr Meropenem 1,000 mg/ Sodium (Chloride) 250 mls @ 83.333 mls/hr IV.SIG Q12H [facility] Last Infusion: 03/05/18 06:43 Dose: Infused Morphine Sulfate (Morphine Inj) 2 mg IV.PUSH Q4H PRN PRN Reason: Acute Pain Last Admin: 03/05/18 09:38 Dose: 2 mg Ondansetron HCl (Zofran Inj) 4 mg IV.PUSH Q6H PRN PRN Reason: NAUSEA OR VOMITING Last Admin: 03/04/18 23:10 Dose: 4 mg Sodium Chloride (Ns Flush) 2 ml IV.FLUSH PRN PRN PRN Reason: FLUSH AFTER USING IV ACCESS Last Admin: 03/04/18 10:00 Dose: 2 ml Allergies Allergy/AdvReac Type Severity Reaction Status Date / Time No Known Allergies Allergy Verified 03/04/18 09:54 Home Medications Medication Instructions Recorded Confirmed Type escitalopram oxalate 15 mg PO DAILY 03/04/18 03/04/18 History hydrocodone-acetaminophen 1 tab PO Q12H PRN 03/04/18 03/04/18 History Exam Vital signs: Vital Signs 03/04/18 12:52 03/04/18 14:03 03/04/18 16:00 Temperature 98.2 F 97.4 F L Pulse Rate 87 111 H 119 H Respiratory Rate 18 20 20 Blood Pressure 145/93 H 164/80 H Pulse Oximetry 95 96 94 L 03/04/18 20:00 03/05/18 00:00 03/05/18 04:00 Temperature 98.1 F 98.0 F 97.8 F Pulse Rate 110 H 114 H 108 H Respiratory Rate 20 20 20 Blood Pressure 151/90 H 149/91 H 150/86 H Pulse Oximetry 92 L 87 L 91 L 03/05/18 07:03 Temperature 98.3 F Pulse Rate 108 H Respiratory Rate 16 Blood Pressure 152/84 H Pulse Oximetry 96 Intake & Output 03/04/18 03/05/18 03/05/18 18:59 06:59 18:59 Intake Total 1000 / 1000 1500 / 1500 Output Total 1200 / 1200 3 / 3 Balance -200 / -200 1497 / 1497 Weight 45.813 kg 48.9 kg Intake: IV 1000 / 1000 1500 / 1500 LR 1000 mL Inj 1,000 ML @ 175 1000 / 1000 mls/hr IV.CONT .Q5H43M [facility] Rx#: [id number] Vabomere Inj 1,000 MG In NS Inj 500 / 500 250 ML @ 83.333 mls/hr IV.SIG Q12H [facility] Rx#:[id number] NS Inj 1,000 ML @ 1000 mls/hr 1000 / 1000 IV.SIG BOLUS [facility] Rx#:[id number] Output: Urine 1200 / 1200 Other: Date of Last Bowel Movement 03/04/18 Narrative: Physical examination GENERAL: Patient is a thin, well-developed female, awake and alert, not in respiratory distress. C/O severe abdominal pain SKIN: Cool and dry. No generalized rash, no ecchymoses and no evidence of embolic lesions. HEAD: Atraumatic. Normocephalic. No temporal wasting, or tenderness. EYES: [place] conjunctiva. No petechia or hemorrhage. Pupils equal, round and reactive to light. Extraocular movements full and intact. No scleral icterus. No injection or drainage. EARS, NOSE AND THROAT: Nose without bleeding or purulent nasal discharge. No sinus tenderness. Mucous membranes pink and moist. No oral lesions noted. No exudate. No oral thrush. NECK: Trachea midline. Supple and not tender, no meningeal signs CARDIOVASCULAR: Regular rate and rhythm, tachycardic. No murmurs, rubs or gallops heard RESPIRATORY: Decreased breath sounds at L base ABDOMEN: Mildly distended, bowel sounds hypoactive, diffuse tenderness, krishna on L, with mild guarding, no rebound. EXTREMITIES: No clubbing, cyanosis, or edema. No joint effusion, has good ROM. No calf tenderness. Well perfused and warm. NEUROLOGICAL: Awake and alert. Cranial nerves grossly intact. Motor grossly within normal limits. PSYCHIATRIC: Normal affect, calm and cooperative. LINE: No evidence of infection Results - Labs CBC & Chem 7: 03/05/18 07:55 03/05/18 07:55 Labs: Laboratory Results - last 24 hr 03/05/18 03/05/18 03/05/18 07:55 07:55 07:55 WBC 21.3 H RBC 3.91 L Hgb 12.7 Hct 37.6 MCV 96.3 MCH 32.5 MCHC 33.8 RDW 14.2 Plt Count 331 MPV 7.5 Neut % (Auto) 88.9 H Lymph % (Auto) 6.0 L [place] % (Auto) 5.0 Eos % (Auto) 0.0 Baso % (Auto) 0.1 Neut # (Auto) 18.9 H Lymph # (Auto) 1.3 [place] # (Auto) 1.1 H Eos # (Auto) 0.0 Baso # (Auto) 0.0 WBC Differential . Differential Comment Auto diff final Sodium 143 Potassium 3.6 Chloride 111 H Carbon Dioxide 23.6 Anion Gap 8 BUN 15 Creatinine 0.91 Random Glucose 101 Calcium 7.9 L Magnesium 1.7 Lipase 4220 H CA 19-9 Antigen 21.6 - Imaging Impressions Cholangiopancreatography MRI 03/04/18 15:14 CONCLUSION: 1. Dilated common bile duct and is a stricture that appears to be smooth involving the distal common bile duct at the level of the ampulla with possible slight invagination into the lumen of the duodenum. May consider further evaluation with direct visualization and endoscopy. Chest X-Ray 03/05/18 09:56 CONCLUSION: Mild cardiomegaly and large left-sided pleural effusion. Findings are stable from prior exam. Assessment and Plan - Plan Impression Severe pancreatitis Possible sepsis due to pancreatitis Leukocytosis due to pancreatitis Had dil CBD Recommendation Patient currently on Meropenem, continus for now GI evaluation in progress Check procalcitonin Follow CBC Follow C/S Monitor progress I will follow along with you Thank you for this consultation
--- NOTE | 2018-03-05 20:48 | P.PNGI ---
Subjective Interval history: Patient resting in bed Reports less abdominal discomfort Denies any nausea or vomiting <Judie Nichols - Last Filed: 03/05/18 20:41> Physical Exam Vital signs: Vital Signs 03/05/18 00:00 03/05/18 04:00 03/05/18 07:03 Temperature 98.0 F 97.8 F 98.3 F Pulse Rate 114 H 108 H 108 H Respiratory Rate 20 20 16 Blood Pressure 149/91 H 150/86 H 152/84 H Pulse Oximetry 87 L 91 L 96 03/05/18 08:00 03/05/18 12:04 03/05/18 15:43 Temperature 98.4 F 99.0 F Pulse Rate 112 H 115 H Respiratory Rate 16 20 18 Blood Pressure 154/93 H 151/90 H Pulse Oximetry 91 L 92 L Intake & Output 03/05/18 03/05/18 03/06/18 06:59 18:59 06:59 Intake Total 1500 / 1500 1240 / 1240 250 / 250 Output Total 3 / 3 Balance 1497 / 1497 1240 / 1240 250 / 250 Weight 48.9 kg Intake: IV 1500 / 1500 1000 / 1000 250 / 250 LR 1000 mL Inj 1,000 ML @ 75 1000 / 1000 1000 / 1000 mls/hr IV.CONT .[id number] [facility] Rx# :[id number] Vabomere Inj 1,000 MG In NS Inj 500 / 500 250 / 250 250 ML @ 83.333 mls/hr IV.SIG Q12H [facility] Rx#:[id number] Oral 240 / 240 Output: Urine 3 / 3 Other: # Voids 1 Date of Last Bowel Movement 03/04/18 03/04/18 - Constitutional no acute distress - Routine Respiratory Exam Present: CTA bilaterally - Routine Cardiovascular Exam Present: RRR - Routine Abdominal Exam Present: soft, normoactive bowel sounds. Absent: distended, guarding, firm - Routine Skin Exam Present: dry, warm - Routine Neurological Exam Present: alert <Judie Nichols - Last Filed: 03/05/18 20:41> Vital signs: Vital Signs 03/05/18 12:04 03/05/18 15:43 03/05/18 20:00 Temperature 98.4 F 99.0 F 98.6 F Pulse Rate 112 H 115 H 109 H Respiratory Rate 20 18 18 Blood Pressure 154/93 H 151/90 H 164/80 H Pulse Oximetry 91 L 92 L 92 L 03/06/18 00:00 03/06/18 04:00 03/06/18 07:10 Temperature 98.5 F 98.1 F 99.6 F Pulse Rate 108 H 111 H 93 H Respiratory Rate 18 18 20 Blood Pressure 151/86 H 144/83 H 131/68 Pulse Oximetry 92 L 92 L 99 Intake & Output 03/05/18 03/06/18 03/06/18 18:59 06:59 18:59 Intake Total 1240 / 1240 1250 / 1250 Output Total 600 / 600 Balance 1240 / 1240 650 / 650 Weight 48.9 kg Intake: IV 1000 / 1000 1250 / 1250 LR 1000 mL Inj 1,000 ML @ 75 1000 / 1000 1000 / 1000 mls/hr IV.CONT .[id number] [facility] Rx# :[id number] Vabomere Inj 1,000 MG In NS Inj 250 / 250 250 ML @ 83.333 mls/hr IV.SIG Q12H [facility] Rx#:[id number] Oral 240 / 240 Output: Urine 600 / 600 Other: # Voids 1 Date of Last Bowel Movement 03/04/18 03/04/18 <Matt Nicolas - Last Filed: 03/06/18 08:36> Results - Labs CBC & Chem 7: 03/05/18 07:55 03/05/18 07:55 Laboratory Results - last 24 hr 03/05/18 03/05/18 03/05/18 07:55 07:55 07:55 WBC 21.3 H RBC 3.91 L Hgb 12.7 Hct 37.6 MCV 96.3 MCH 32.5 MCHC 33.8 RDW 14.2 Plt Count 331 MPV 7.5 Neut % (Auto) 88.9 H Lymph % (Auto) 6.[address] [place] % (Auto) 5.0 Eos % (Auto) 0.0 Baso % (Auto) 0.1 Neut # (Auto) 18.9 H Lymph # (Auto) 1.3 [place] # (Auto) 1.1 H Eos # (Auto) 0.0 Baso # (Auto) 0.0 WBC Differential . Differential Comment Auto diff final Sodium 143 Potassium 3.6 Chloride 111 H Carbon Dioxide 23.6 Anion Gap 8 BUN 15 Creatinine 0.91 Random Glucose 101 Calcium 7.9 L Magnesium 1.7 Lipase 4220 H CA 19-9 Antigen 21.6 Procalcitonin 03/05/18 12:57 WBC RBC Hgb Hct MCV MCH MCHC RDW Plt Count MPV Neut % (Auto) Lymph % (Auto) [place] % (Auto) Eos % (Auto) Baso % (Auto) Neut # (Auto) Lymph # (Auto) [place] # (Auto) Eos # (Auto) Baso # (Auto) WBC Differential Differential Comment Sodium Potassium Chloride Carbon Dioxide Anion Gap BUN Creatinine Random Glucose Calcium Magnesium Lipase CA 19-9 Antigen Procalcitonin 0.16 H Microbiology 03/04/18 17:27 Blood - Peripheral Aerobic Blood Culture - Preliminary No growth in 1 day 03/04/18 17:27 Blood - Peripheral Anaerobic Blood Culture - Preliminary No growth in 1 day 03/04/18 17:20 Blood - Peripheral Aerobic Blood Culture - Preliminary No growth in 1 day 03/04/18 17:20 Blood - Peripheral Anaerobic Blood Culture - Preliminary No growth in 1 day - Imaging Impressions Chest X-Ray 03/05/18 09:56 CONCLUSION: Mild cardiomegaly and large left-sided pleural effusion. Findings are stable from prior exam. <Judie Nichols - Last Filed: 03/05/18 20:41> - Labs CBC & Chem 7: 03/05/18 07:55 03/05/18 07:55 Laboratory Results - last 24 hr 03/05/18 03/05/18 03/05/18 07:55 07:55 07:55 WBC 21.3 H RBC 3.91 L Hgb 12.7 Hct 37.6 MCV 96.3 MCH 32.5 MCHC 33.8 RDW 14.2 Plt Count 331 MPV 7.5 Neut % (Auto) 88.9 H Lymph % (Auto) 6.[address] [place] % (Auto) 5.0 Eos % (Auto) 0.0 Baso % (Auto) 0.1 Neut # (Auto) 18.9 H Lymph # (Auto) 1.3 [place] # (Auto) 1.1 H Eos # (Auto) 0.0 Baso # (Auto) 0.0 WBC Differential . Differential Comment Auto diff final Sodium 143 Potassium 3.6 Chloride 111 H Carbon Dioxide 23.6 Anion Gap 8 BUN 15 Creatinine 0.91 Random Glucose 101 Calcium 7.9 L Magnesium 1.7 Lipase 4220 H CA 19-9 Antigen 21.6 Procalcitonin 03/05/18 12:57 WBC RBC Hgb Hct MCV MCH MCHC RDW Plt Count MPV Neut % (Auto) Lymph % (Auto) [place] % (Auto) Eos % (Auto) Baso % (Auto) Neut # (Auto) Lymph # (Auto) [place] # (Auto) Eos # (Auto) Baso # (Auto) WBC Differential Differential Comment Sodium Potassium Chloride Carbon Dioxide Anion Gap BUN Creatinine Random Glucose Calcium Magnesium Lipase CA 19-9 Antigen Procalcitonin 0.16 H Microbiology 03/04/18 17:27 Blood - Peripheral Aerobic Blood Culture - Preliminary No growth in 1 day 03/04/18 17:27 Blood - Peripheral Anaerobic Blood Culture - Preliminary No growth in 1 day 03/04/18 17:20 Blood - Peripheral Aerobic Blood Culture - Preliminary No growth in 1 day 03/04/18 17:20 Blood - Peripheral Anaerobic Blood Culture - Preliminary No growth in 1 day - Imaging Impressions Chest X-Ray 03/05/18 09:56 CONCLUSION: Mild cardiomegaly and large left-sided pleural effusion. Findings are stable from prior exam. <Matt Nicolas - Last Filed: 03/06/18 08:36> Assessment and Plan (1) Acute pancreatitis Status: Acute Code(s): K85.90 - Acute pancreatitis without necrosis or infection, unspecified - Plan This patient is a 58-year-old female with past medical history significant for depression, osteoporosis, pancreatitis, and osteoarthritis. Patient also reports history of ureteral stricture and right-sided kidney failure. Upon consultation, patient reports that she has had 3 episodes of pancreatitis. She states her last episode was 9 years ago. Patient denies any use of EtOH. States that she quit drinking 1 year ago. Patient denies any diarrhea fever or chills. Patient endorses smoking tobacco 1 pack/day. She denies any use of illicit drugs and denies any known family history of gastrointestinal disorders. 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 Acute pancreatitis Patient reports 3 noted episodes of pancreatitis. Last being 9 years ago. Patient denies any use of EtOH. She states she quit 1 year ago. Does report now drinking occasional EtOH socially. 03/04/2018 CT abdomen and pelvis reveal the following- 1. Dilatation of the common bile duct measuring up to 1.3 cm with an 8 to 9 mm round soft tissue masslike structure which extends into the fluid-filled duodenum. 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 The gallbladder is unremarkable. 2. Fluid in the left upper abdomen surrounding portions of the body and tail the pancreas as well as portions of the spleen. The finding is nonspecific and the differential diagnosis includes pancreatitis. The left kidney appears unremarkable. 3. Small atrophic right kidney. WBC 17.9 hemoglobin 13.9 hematocrit 41.1 total bilirubin 0.5 AST 18 ALT 14 alk phos 92 lipase 28,791 03/05/2018 03/04/2018 MRCP revealed the following-- Dilated common bile duct and is a stricture that appears to be smooth involving the distal common bile duct at the level of the ampulla with possible slight invagination into the lumen of the duodenum. May consider further evaluation with direct visualization and endoscopy. WBC 21.3 RBC 3.9 hemoglobin 12.7 hematocrit 37.6 platelet count 331 lipase 4220 CA 199 21.6 Patient endorses decreasing abdominal discomfort. Plan -Clear liquid diet -Analgesics and antiemetics as per attending -Blood cultures pending -Monitor labs -Continue meropenem 1 g IV every 12 hours -Appreciate ID consult recommendations -Supportive care -Further recommendations to follow -ERCP in a few days to further evaluate bile ducts -Continue IV hydration This patient has been seen by myself and Dr. Nicolas and this note is written on his behalf - Attending Attestation Dr. Nicolas <Judie Nichols - Last Filed: 03/05/18 20:41> (1) Acute pancreatitis Status: Acute Code(s): K85.90 - Acute pancreatitis without necrosis or infection, unspecified - Attending Attestation The patient was seen and examined. Agree with above note. <Matt Nicolas - Last Filed: 03/06/18 08:36> <Judie Nichols - Last Filed: 03/05/18 20:41> (1) Acute pancreatitis Qualifiers: Pancreatitis type: other Acute pancreatitis complication: no infection or necrosis Qualified Code(s): K85.80 - Other acute pancreatitis without necrosis or infection <Matt Nicolas - Last Filed: 03/06/18 08:36> (1) Acute pancreatitis Qualifiers: Pancreatitis type: other Acute pancreatitis complication: no infection or necrosis Qualified Code(s): K85.80 - Other acute pancreatitis without necrosis or infection
[2018-03-06] MEDS: Morphine Sulfate Inj 2 MG/ML Vial IV.PUSH PRN ×5 (02:36→22:02)
[2018-03-06] MEDS: MEROPENEM VABORBACTAM IV.SIG SCH ×2 (03:00→15:36)
[2018-03-06] MEDS: SODIUM CHLOR 0.9% IV.SIG SCH ×2 (03:00→15:36)
[2018-03-06] MEDS: Heparin - SQ 10,000 UNITS/ML Vial SQ SCH (10:11)
[2018-03-06 10:51] LABS: Baso % (Auto) 0.1 % (0.0-2.0); Eos % (Auto) 0.1 % (0.0-4.0); Hematocrit 38.7 % (35.0-46.0); Hemoglobin 13.3 gm/dL (11.6-15.3); Lymph # (Auto) 2.1 th/mm3 (1.0-4.8); Lymph % (Auto) 9.1 % (9.0-44.0); Mean Corpuscular HGB Conc 34.3 % (32.0-36.0); Mean Corpuscular Hemoglobin 32.9 pg (27.0-34.0); Mean Corpuscular Volume 95.9 fL (80.0-100.0); Mean Platelet Volume 7.8 fL (7.0-11.0); Mono # (Auto) 1.1 th/mm3 (0.0-0.9); Mono % (Auto) 4.7 % (0.0-8.0); Neut # (Auto) 19.7 th/mm3 (1.8-7.7); Platelet Count 285 th/mm3 (150-450); Red Blood Count 4.04 mil/mm3 (4.00-5.30); Red Cell Distribution Width 14.3 % (11.6-17.2); White Blood Count 22.9 th/mm3 (4.0-11.0)
[2018-03-06 11:18] LABS: Alanine Aminotransferase 12 U/L (10-53); Albumin 2.8 g/dL (3.4-5.0); Alkaline Phosphatase 66 U/L (45-117); Anion Gap 8 meq/L (5-15); Aspartate Aminotransferase 28 U/L (15-37); Blood Urea Nitrogen 10 mg/dL (7-18); Calcium 7.9 mg/dL (8.5-10.1); Carbon Dioxide 25.3 meq/L (21.0-32.0); Chloride 105 meq/L (98-107); Glomerular Filtration Rate 82 mL/min (>89); Glucose,Random 100 mg/dL (74-106); Lipase 748 U/L (73-393); Potassium 3.5 meq/L (3.5-5.1); Sodium 138 meq/L (136-145); Total Protein 6.3 g/dL (6.4-8.2)
[2018-03-06 11:20] LABS: Amylase 439 U/L (25-115)
--- NOTE | 2018-03-06 11:44 | P.PNIM ---
Subjective Interval history: Follow-up for acute pancreatitis, possible ampullary mass. Patient reports feeling somewhat better. Remains afebrile. She continues to have productive cough as well as abdominal pain. Physical Exam Vital signs: Last Vital Signs Temp 99.6 F 03/06/18 07:10 Pulse 93 H 03/06/18 07:10 Resp 20 03/06/18 07:10 BP 131/68 03/06/18 07:10 Pulse Ox 99 03/06/18 07:10 Intake & Output 03/04/18 03/05/18 03/06/18 03/07/18 06:59 06:59 06:59 06:59 Intake Total 2500 / 2500 2490 / 2490 250 / 250 Output Total 1203 / 1203 600 / 600 Balance 1297 / 1297 1890 / 1890 250 / 250 Weight 48.9 kg 48.9 kg GENERAL: Alert, NAD. SKIN: Warm and dry. HEAD: Normocephalic. EYES: No scleral icterus. No injection or drainage. NECK: Supple, trachea midline. No JVD or lymphadenopathy. CARDIOVASCULAR: Regular rate and rhythm without murmurs, gallops, or rubs. RESPIRATORY: Breath sounds equal bilaterally. No accessory muscle use. GASTROINTESTINAL: Abdomen soft, tender to palpation diffusely, nondistended. MUSCULOSKELETAL: No cyanosis, or edema. BACK: Nontender without obvious deformity. No CVA tenderness. Results Labs CBC & Chem 7: 03/06/18 09:40 03/06/18 09:40 Labs: Microbiology 03/04/18 17:27 Blood - Peripheral Aerobic Blood Culture - Preliminary No growth in 2 days 03/04/18 17:27 Blood - Peripheral Anaerobic Blood Culture - Preliminary No growth in 2 days 03/04/18 17:20 Blood - Peripheral Aerobic Blood Culture - Preliminary No growth in 2 days 03/04/18 17:20 Blood - Peripheral Anaerobic Blood Culture - Preliminary No growth in 2 days Assessment and Plan (1) Acute pancreatitis: Code(s): K85.90 - Acute pancreatitis without necrosis or infection, unspecified Status: Acute Plan This patient is a 58 y/o F with a diagnosis of osteoarthritis, hx of right ureteral stricture which led to right sided kidney failure. She has an extensive tobacco smoking hx. She presents to the ED with complaints of abdominal pain for the past few days that worsened yesterday. She also began to have nausea and vomiting. She has a hx of pancreatitis several years ago however is unsure of what the cause was at that time. She denies any recent alcohol use. She denies any fevers or chills. Sepsis (tachycardic, leukocytosis, possible pancreatitis related infection) Patient presents with abd pain. Ct abd/pelv shows dilation of the cbd 1.3 cm with 9mm round mass that extends into the duodenum. Pancreas shows findings consistent with pancreatitis [place] [address] [place] admission and currently 748. -Patient is on LR - will reduce to 75cc/hour. -GI is following. 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 Patient will likely need EUS. -Morphine for pain. Will adjust depending on patients needs. -ID consulted. Patient is currently on Meropenem Left sided pleural effusion Cough -Leukocytosis is slightly worse. WBC around 22K now. -Will send sputum for C&S -will order a US guided left thoracentesis. Tobacco abuse -Patient advised to quit smoking. Full code. Heparin SQ - will hold PM dose tonight. Discussed with ID as well as GI. _ (1) Acute pancreatitis Qualifiers: Acute pancreatitis complication: no infection or necrosis Pancreatitis type: other Qualified Code(s): K85.80 - Other acute pancreatitis without necrosis or infection
--- NOTE | 2018-03-06 14:18 | P.PNID ---
Subjective Remarks: Patient is a 58-year-old female, presented to the hospital with several day history of severe left-sided abdominal pain and into the flank area on the left side. She also started having nausea and vomiting. She has not had any fever chills or sweats. Patient apparently had a prior episode of pancreatitis about 9 years ago and this was after she had problem with her kidneys and had ureteral stricture found. After that episode of pancreatitis, she has not had any recurrence and has been doing well. She denies any significant alcohol abuse. She has not been on any new medications. Has not had any respiratory problem. She denies any dysuria. On presentation she had a white count of 17, 000, and is up to 21,000. Her lipase was up to 28,000. 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 There is also a large left pleural effusion seen. Infectious disease consultation has been requested to assist with evaluation and treatment of patient with pancreatitis. Notes reviewed Temps ok C/O back pain Bringing up phlegm WBC slightly higher Lipase lower BC negative UA ok ERCP being planned by GI Antibiotics: Meropenem Past Medical History: Depression Osteoporosis Pancreatitis Allergies/Adverse Reactions: Allergies No Known Allergies Allergy (Verified 03/04/18 09:54) Objective Vital Signs 03/05/18 15:43 03/05/18 20:00 03/06/18 00:00 Temperature 99.0 F 98.6 F 98.5 F Pulse Rate 115 H 109 H 108 H Respiratory Rate 18 18 18 Blood Pressure 151/90 H 164/80 H 151/86 H Pulse Oximetry 92 L 92 L 92 L 03/06/18 04:00 03/06/18 07:10 03/06/18 11:52 Temperature 98.1 F 99.6 F 98.6 F Pulse Rate 111 H 93 H 93 H Respiratory Rate 18 20 20 Blood Pressure 144/83 H 131/68 136/74 Pulse Oximetry 92 L 99 100 Intake & Output 03/05/18 03/06/18 03/06/18 18:59 06:59 18:59 Intake Total 1240 / 1240 1250 / 1250 250 / 250 Output Total 600 / 600 Balance 1240 / 1240 650 / 650 250 / 250 Weight 48.9 kg Intake: IV 1000 / 1000 1250 / 1250 250 / 250 LR 1000 mL Inj 1,000 ML @ 75 1000 / 1000 1000 / 1000 mls/hr IV.CONT .[id number] [facility] Rx# :[id number] Vabomere Inj 1,000 MG In NS Inj 250 / 250 250 / 250 250 ML @ 83.333 mls/hr IV.SIG Q12H [facility] Rx#:[id number] Oral 240 / 240 Output: Urine 600 / 600 Other: # Voids 1 Date of Last Bowel Movement 03/04/18 03/04/18 03/06/18 13:45 Sputum - Expectorated Sputum Gram Stain - Pending 03/06/18 13:45 Sputum - Expectorated Sputum Sputum Culture - Pending 03/04/18 17:27 Blood - Peripheral Aerobic Blood Culture - Preliminary No growth in 2 days 03/04/18 17:27 Blood - Peripheral Anaerobic Blood Culture - Preliminary No growth in 2 days 03/04/18 17:20 Blood - Peripheral Aerobic Blood Culture - Preliminary No growth in 2 days 03/04/18 17:20 Blood - Peripheral Anaerobic Blood Culture - Preliminary No growth in 2 days Lab - Hematology Results 03/05/18 03/06/18 07:55 09:40 WBC 21.3 H 22.9 H RBC 3.91 L 4.04 Hgb 12.7 13.3 Hct 37.6 38.7 MCV 96.3 95.9 MCH 32.5 32.9 MCHC 33.8 34.3 RDW 14.2 14.3 Plt Count 331 285 MPV 7.5 7.8 Neut % (Auto) 88.9 H 86.0 H Lymph % (Auto) 6.0 L 9.1 [place] % (Auto) 5.0 4.7 Eos % (Auto) 0.0 0.1 Baso % (Auto) 0.1 0.1 Neut # (Auto) 18.9 H 19.7 H Lymph # (Auto) 1.3 2.1 [place] # (Auto) 1.1 H 1.1 H Eos # (Auto) 0.0 0.0 Baso # (Auto) 0.0 0.0 WBC Differential . . Differential Comment Auto diff final Auto diff final Lab - Chemistry Results 03/05/18 03/05/18 03/05/18 07:55 07:55 12:57 Sodium 143 Potassium 3.6 Chloride 111 H Carbon Dioxide 23.6 Anion Gap 8 BUN 15 Creatinine 0.91 Estimated GFR Random Glucose 101 Calcium 7.9 L Magnesium 1.7 Total Bilirubin AST ALT Alkaline Phosphatase Total Protein Albumin Amylase Lipase 4220 H CA 19-9 Antigen 21.6 Procalcitonin 0.16 H 03/06/18 09:40 Sodium 138 Potassium 3.5 Chloride 105 Carbon Dioxide 25.3 Anion Gap 8 BUN 10 Creatinine 0.73 Estimated GFR 82 L Random Glucose 100 Calcium 7.9 L Magnesium Total Bilirubin 0.8 AST 28 ALT 12 Alkaline Phosphatase 66 Total Protein 6.3 L D Albumin 2.8 L D Amylase 439 H Lipase 748 H CA 19-9 Antigen Procalcitonin Imaging: ITS Impressions Abdomen/Pelvis CT 03/04/18 09:54 CONCLUSION: 1. Dilatation of the common bile duct measuring up to 1.3 cm with an 8 to 9 mm round soft tissue masslike structure which extends into the fluid-filled duodenum. 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 The gallbladder is unremarkable. 2. Fluid in the left upper abdomen surrounding portions of the body and tail the pancreas as well as portions of the spleen. The finding is nonspecific and the differential diagnosis includes pancreatitis. The left kidney appears unremarkable. 3. Small atrophic right kidney. Cholangiopancreatography MRI 03/04/18 15:14 CONCLUSION: 1. Dilated common bile duct and is a stricture that appears to be smooth involving the distal common bile duct at the level of the ampulla with possible slight invagination into the lumen of the duodenum. May consider further evaluation with direct visualization and endoscopy. Chest X-Ray 03/05/18 09:56 CONCLUSION: Mild cardiomegaly and large left-sided pleural effusion. Findings are stable from prior exam. Physical Exam: GENERAL: awake and alert, not in respiratory distress. SKIN: Cool and dry. No generalized rash. HEAD: Atraumatic. Normocephalic. No temporal wasting, or tenderness. EYES: [place] conjunctiva. No petechia or hemorrhage. No scleral icterus. No injection or drainage. EARS, NOSE AND THROAT: Nose without bleeding or purulent nasal discharge. No sinus tenderness. Mucous membranes pink and moist. No oral lesions noted. No exudate. No oral thrush. NECK: Trachea midline. Supple and not tender, no meningeal signs CARDIOVASCULAR: Regular rate and rhythm, tachycardic. No murmurs, rubs or gallops heard RESPIRATORY: Decreased breath sounds at L base ABDOMEN: Mildly distended, bowel sounds hypoactive, diffuse tenderness, krishna on L, with mild guarding, no rebound. EXTREMITIES: No clubbing, cyanosis, or edema. No joint effusion, has good ROM. No calf tenderness. Well perfused and warm. NEUROLOGICAL: Grossly non-focal. PSYCHIATRIC: Normal affect, calm and cooperative. LINE: No evidence of infection Assessment and Plan - Plan Impression Severe pancreatitis Possible sepsis due to pancreatitis Leukocytosis due to pancreatitis Has cough, and pleural effusion - ?sympathetic effusion - ?PNA Had dil CBD Recommendation Patient currently on Meropenem, continue for now GI evaluation in progress Check procalcitonin Evaluate for thoracentesis - therapeutic and diagnostic Follow CBC Follow C/S Monitor progress
--- NOTE | 2018-03-06 17:06 | P.PNGI ---
Subjective Interval history: Patient laying supine in bed Reports less abdominal discomfort today Frequent cough <Nichols,Judie - Last Filed: 03/06/18 17:00> Physical Exam Vital signs: Vital Signs 03/05/18 20:00 03/06/18 00:00 03/06/18 04:00 Temperature 98.6 F 98.5 F 98.1 F Pulse Rate 109 H 108 H 111 H Respiratory Rate 18 18 18 Blood Pressure 164/80 H 151/86 H 144/83 H Pulse Oximetry 92 L 92 L 92 L 03/06/18 07:10 03/06/18 11:52 03/06/18 16:26 Temperature 99.6 F 98.6 F 99.5 F Pulse Rate 93 H 93 H 109 H Respiratory Rate 20 20 18 Blood Pressure 131/68 136/74 141/80 H Pulse Oximetry 99 100 93 L Intake & Output 03/05/18 03/06/18 03/06/18 18:59 06:59 18:59 Intake Total 1240 / 1240 1250 / 1250 1250 / 1250 Output Total 600 / 600 Balance 1240 / 1240 650 / 650 1250 / 1250 Weight 48.9 kg Intake: IV 1000 / 1000 1250 / 1250 1250 / 1250 LR 1000 mL Inj 1,000 ML @ 75 1000 / 1000 1000 / 1000 1000 / 1000 mls/hr IV.CONT .[id number] [facility] Rx# :[id number] Vabomere Inj 1,000 MG In NS Inj 250 / 250 250 / 250 250 ML @ 83.333 mls/hr IV.SIG Q12H [facility] Rx#:[id number] Oral 240 / 240 Output: Urine 600 / 600 Other: # Voids 1 Date of Last Bowel Movement 03/04/18 03/04/18 - Constitutional no acute distress, chronically ill appearing, cooperative - Routine Respiratory Exam Present: accessory muscle use Comments: Scattered rhonchi Shortness of breath on exertion 3 L nasal cannula - Routine Cardiovascular Exam Present: RRR, S1, S2 - Routine Abdominal Exam Present: soft, normoactive bowel sounds. Absent: distended, guarding, firm - Routine Skin Exam Present: dry, warm - Routine Neurological Exam Present: alert <Nichols,Judie - Last Filed: 03/06/18 17:00> Vital signs: Vital Signs 03/06/18 11:52 03/06/18 16:26 03/06/18 20:00 Temperature 98.6 F 99.5 F 100 F H Pulse Rate 93 H 109 H 113 H Respiratory Rate 20 18 18 Blood Pressure 136/74 141/80 H 154/84 H Pulse Oximetry 100 93 L 97 03/07/18 00:00 03/07/18 04:00 03/07/18 07:45 Temperature 98.9 F 98.8 F 98.1 F Pulse Rate 109 H 108 H 114 H Respiratory Rate 18 18 20 Blood Pressure 147/80 H 139/78 123/77 Pulse Oximetry 98 91 L 92 L Intake & Output 03/06/18 03/07/18 03/07/18 18:59 06:59 18:59 Intake Total 2240 / 2240 1000 / 1000 250 / 250 Output Total 600 / 600 Balance 1640 / 1640 1000 / 1000 250 / 250 Weight 48.9 kg Intake: IV 1500 / 1500 1000 / 1000 250 / 250 LR 1000 mL Inj 1,000 ML @ 75 1000 / 1000 1000 / 1000 mls/hr IV.CONT .[id number] [facility] Rx# :[id number] Vabomere Inj 1,000 MG In NS Inj 500 / 500 250 / 250 250 ML @ 83.333 mls/hr IV.SIG Q12H [facility] Rx#:[id number] Oral 740 / 740 Output: Urine 600 / 600 Other: # Voids 2 Date of Last Bowel Movement 03/04/18 03/04/18 <Matt Nicolas - Last Filed: 03/07/18 09:29> Results - Labs CBC & Chem 7: 03/06/18 09:40 03/06/18 09:40 Laboratory Results - last 24 hr 03/06/18 03/06/18 09:40 09:40 WBC 22.9 H RBC 4.04 Hgb 13.3 Hct 38.7 MCV 95.9 MCH 32.9 MCHC 34.3 RDW 14.3 Plt Count 285 MPV 7.8 Neut % (Auto) 86.0 H Lymph % (Auto) 9.1 Summit % (Auto) 4.7 Eos % (Auto) 0.1 Baso % (Auto) 0.1 Neut # (Auto) 19.7 H Lymph # (Auto) 2.1 Summit # (Auto) 1.1 H Eos # (Auto) 0.0 Baso # (Auto) 0.0 WBC Differential . Differential Comment Auto diff final Sodium 138 Potassium 3.5 Chloride 105 Carbon Dioxide 25.3 Anion Gap 8 BUN 10 Creatinine 0.73 Estimated GFR 82 L Random Glucose 100 Calcium 7.9 L Total Bilirubin 0.8 AST 28 ALT 12 Alkaline Phosphatase 66 Total Protein 6.3 L D Albumin 2.8 L D Amylase 439 H Lipase 748 H Microbiology 03/04/18 17:27 Blood - Peripheral Aerobic Blood Culture - Preliminary No growth in 2 days 03/04/18 17:27 Blood - Peripheral Anaerobic Blood Culture - Preliminary No growth in 2 days 03/04/18 17:20 Blood - Peripheral Aerobic Blood Culture - Preliminary No growth in 2 days 03/04/18 17:20 Blood - Peripheral Anaerobic Blood Culture - Preliminary No growth in 2 days <Judie Nichols - Last Filed: 03/06/18 17:00> - Labs CBC & Chem 7: 03/06/18 09:40 03/06/18 09:40 Laboratory Results - last 24 hr 03/06/18 03/06/18 03/06/18 09:40 09:40 16:52 WBC 22.9 H RBC 4.04 Hgb 13.3 Hct 38.7 MCV 95.9 MCH 32.9 MCHC 34.3 RDW 14.3 Plt Count 285 MPV 7.8 Neut % (Auto) 86.0 H Lymph % (Auto) 9.1 Summit % (Auto) 4.7 Eos % (Auto) 0.1 Baso % (Auto) 0.1 Neut # (Auto) 19.7 H Lymph # (Auto) 2.1 Summit # (Auto) 1.1 H Eos # (Auto) 0.0 Baso # (Auto) 0.0 WBC Differential . Differential Comment Auto diff final PT INR Sodium 138 Potassium 3.5 Chloride 105 Carbon Dioxide 25.3 Anion Gap 8 BUN 10 Creatinine 0.73 Estimated GFR 82 L Random Glucose 100 Calcium 7.9 L Total Bilirubin 0.8 AST 28 ALT 12 Alkaline Phosphatase 66 Total Protein 6.3 L D Albumin 2.8 L D Amylase 439 H Lipase 748 H Procalcitonin 0.12 H 03/07/18 06:40 WBC RBC Hgb Hct MCV MCH MCHC RDW Plt Count MPV Neut % (Auto) Lymph % (Auto) Summit % (Auto) Eos % (Auto) Baso % (Auto) Neut # (Auto) Lymph # (Auto) Summit # (Auto) Eos # (Auto) Baso # (Auto) WBC Differential Differential Comment PT 10.7 INR 1.1 Sodium Potassium Chloride Carbon Dioxide Anion Gap BUN Creatinine Estimated GFR Random Glucose Calcium Total Bilirubin AST ALT Alkaline Phosphatase Total Protein Albumin Amylase Lipase Procalcitonin Microbiology 03/04/18 17:27 Blood - Peripheral Aerobic Blood Culture - Preliminary No growth in 2 days 03/04/18 17:27 Blood - Peripheral Anaerobic Blood Culture - Preliminary No growth in 2 days 03/04/18 17:20 Blood - Peripheral Aerobic Blood Culture - Preliminary No growth in 2 days 03/04/18 17:20 Blood - Peripheral Anaerobic Blood Culture - Preliminary No growth in 2 days <Matt Nicolas - Last Filed: 03/07/18 09:29> Assessment and Plan (1) Acute pancreatitis Status: Acute Code(s): K85.90 - Acute pancreatitis without necrosis or infection, unspecified - Plan This patient is a 58-year-old female with past medical history significant for depression, osteoporosis, pancreatitis, and osteoarthritis. Patient also reports history of ureteral stricture and right-sided kidney failure. Upon consultation, patient reports that she has had 3 episodes of pancreatitis. She states her last episode was 9 years ago. Patient denies any use of EtOH. States that she quit drinking 1 year ago. Patient denies any diarrhea fever or chills. Patient endorses smoking tobacco 1 pack/day. She denies any use of illicit drugs and denies any known family history of gastrointestinal disorders. 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 Acute pancreatitis Patient reports 3 noted episodes of pancreatitis. Last being 9 years ago. Patient denies any use of EtOH. She states she quit 1 year ago. Does report now drinking occasional EtOH socially. 03/04/2018 CT abdomen and pelvis reveal the following- 1. Dilatation of the common bile duct measuring up to 1.3 cm with an 8 to 9 mm round soft tissue masslike structure which extends into the fluid-filled duodenum. 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 The gallbladder is unremarkable. 2. Fluid in the left upper abdomen surrounding portions of the body and tail the pancreas as well as portions of the spleen. The finding is nonspecific and the differential diagnosis includes pancreatitis. The left kidney appears unremarkable. 3. Small atrophic right kidney. WBC 17.9 hemoglobin 13.9 hematocrit 41.1 total bilirubin 0.5 AST 18 ALT 14 alk phos 92 lipase 28,791 03/05/2018 03/04/2018 MRCP revealed the following-- Dilated common bile duct and is a stricture that appears to be smooth involving the distal common bile duct at the level of the ampulla with possible slight invagination into the lumen of the duodenum. May consider further evaluation with direct visualization and endoscopy. WBC 21.3 RBC 3.9 hemoglobin 12.7 hematocrit 37.6 platelet count 331 lipase 4220 CA 199 21.6 Patient endorses decreasing abdominal discomfort. 03/06/2018 WBC 22.9 hemoglobin 13.3 hematocrit 38.7 Total bilirubin 0.8 AST 28 ALT 12 alk phos 66 amylase 439 lipase 748 trending down pro-calcitonin 0.16 Patient reports decreasing abdominal discomfort. Denies nausea vomiting Plan -Clear liquid diet -Analgesics and antiemetics as per attending -Monitor labs -Continue IV meropenem every 12 hours -Infectious disease following -Patient will be evaluated tomorrow for possible EUS ERCP/ -Continue IV hydration -Supportive care -Further recommendations to follow This patient has been seen by myself and Dr. Nicolas and this note is written on his behalf - Attending Attestation <Judie Nichols - Last Filed: 03/06/18 17:00> (1) Acute pancreatitis Status: Acute Code(s): K85.90 - Acute pancreatitis without necrosis or infection, unspecified - Attending Attestation Patient seen and examined. Agree with above. <Matt Nicolas - Last Filed: 03/07/18 09:29> <Judie Nichols - Last Filed: 03/06/18 17:00> (1) Acute pancreatitis Qualifiers: Pancreatitis type: other Acute pancreatitis complication: no infection or necrosis Qualified Code(s): K85.80 - Other acute pancreatitis without necrosis or infection <Matt Nicolas - Last Filed: 03/07/18 09:29> (1) Acute pancreatitis Qualifiers: Pancreatitis type: other Acute pancreatitis complication: no infection or necrosis Qualified Code(s): K85.80 - Other acute pancreatitis without necrosis or infection
[2018-03-07] MEDS: Morphine Sulfate Inj 2 MG/ML Vial IV.PUSH PRN ×5 (02:18→23:32)
[2018-03-07] MEDS: MEROPENEM VABORBACTAM IV.SIG SCH (05:28)
[2018-03-07] MEDS: SODIUM CHLOR 0.9% IV.SIG SCH (05:28)
[2018-03-07 08:59] LABS: INR 1.1 Ratio; Prothrombin Time 10.7 sec (9.8-11.6)
--- NOTE | 2018-03-07 10:56 | XR ---
EXAM DATE: 03/07/2018 10:33 AM EST AGE/SEX: 58 years / Female INDICATIONS: Post left thoracentesis. CLINICAL DATA: This is the patient's subsequent encounter. Patient reports that signs and symptoms h ave been present for 3 days and indicates a pain score of 0/10. MEDICAL/SURGICAL HISTORY: . Pancreatitis. Osteoporosis. . Right hand surgery. [place] [facility] [place]. . FINDINGS: There is no pneumothorax following thoracentesis. Small bilateral pleural effusions are noted. Minima l bibasilar parenchymal changes evident. CONCLUSION: Negative for pneumothorax following left thoracentesis Electronically signed by: Dandre Pascual MD Board Certified Radiologist 03/07/2018 10:55 AM EST
[2018-03-07 11:18] LABS: Total Protein,Pleural Fluid 2.8 gm/dL
--- NOTE | 2018-03-07 11:21 | P.PNIM ---
Subjective Interval history: Follow-up for acute pancreatitis, possible ampullary mass as well as left pleural effusion. Patient is currently doing well. Denies any fever or chills. On short ambulation, she does have some shortness of breath. She is going for left-sided thoracentesis today. Physical Exam Vital signs: Last Vital Signs Temp 97.7 F 03/07/18 10:35 Pulse 105 H 03/07/18 10:35 Resp 18 03/07/18 10:35 BP 129/80 03/07/18 10:35 Pulse Ox 92 L 03/07/18 10:35 Intake & Output 03/05/18 03/06/18 03/07/18 03/08/18 06:59 06:59 06:59 06:59 Intake Total 2500 / 2500 2490 / 2490 3240 / 3240 1250 / 1250 Output Total 1203 / 1203 600 / 600 600 / 600 Balance 1297 / 1297 1890 / 1890 2640 / 2640 1250 / 1250 Weight 48.9 kg 48.9 kg 48.9 kg GENERAL: Alert, oriented x3, NAD. SKIN: Warm and dry. HEAD: Normocephalic. EYES: No scleral icterus. No injection or drainage. NECK: Supple, trachea midline. No JVD or lymphadenopathy. CARDIOVASCULAR: Regular rate and rhythm without murmurs, gallops, or rubs. RESPIRATORY: Moderate air entry. Decreased breath sounds in the left lower lung zone. GASTROINTESTINAL: Abdomen soft, non-tender, nondistended. MUSCULOSKELETAL: No cyanosis, or edema. BACK: Nontender without obvious deformity. No CVA tenderness. Results Labs CBC & Chem 7: 03/06/18 09:40 03/06/18 09:40 Labs: Microbiology 03/04/18 17:27 Blood - Peripheral Aerobic Blood Culture - Preliminary No growth in 3 days 03/04/18 17:27 Blood - Peripheral Anaerobic Blood Culture - Preliminary No growth in 3 days 03/04/18 17:20 Blood - Peripheral Aerobic Blood Culture - Preliminary No growth in 3 days 03/04/18 17:20 Blood - Peripheral Anaerobic Blood Culture - Preliminary No growth in 3 days Imaging Imaging: Impressions Chest X-Ray 03/07/18 00:00 CONCLUSION: Negative for pneumothorax following left thoracentesis Assessment and Plan (1) Acute pancreatitis: Code(s): K85.90 - Acute pancreatitis without necrosis or infection, unspecified Status: Acute Plan This patient is a 58 y/o F with a diagnosis of osteoarthritis, hx of right ureteral stricture which led to right sided kidney failure. She has an extensive tobacco smoking hx. She presents to the ED with complaints of abdominal pain for the past few days that worsened yesterday. She also began to have nausea and vomiting. She has a hx of pancreatitis several years ago however is unsure of what the cause was at that time. She denies any recent alcohol use. She denies any fevers or chills. Sepsis (tachycardic, leukocytosis, possible pancreatitis related infection) Patient presents with abd pain. Ct abd/pelv shows dilation of the cbd 1.3 cm with 9mm round mass that extends into the duodenum. Pancreas shows findings consistent with pancreatitis [place] [address] upon admission and currently 748. -Patient is on LR - will reduce to 75cc/hour. -GI is following. 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 Patient will likely need EUS. -Patient is currently NPO, likely EUS today 03/07/2018. -Morphine for pain. Will adjust depending on patients needs. -ID consulted. Patient is currently on Meropenem Left sided pleural effusion Cough -Leukocytosis is slightly worse. WBC around 22K. CBC pending this AM. -Will send sputum for C&S -US guided left thoracentesis today. Tobacco abuse -Patient advised to quit smoking. Full code. Heparin SQ for DVT prophylaxis. _ (1) Acute pancreatitis Qualifiers: Acute pancreatitis complication: no infection or necrosis Pancreatitis type: other Qualified Code(s): K85.80 - Other acute pancreatitis without necrosis or infection
[2018-03-07 12:05] LABS: Lymphocytes,Pleural Fluid 3 %; Mesothelial,Pleural Fluid 1 %; Neutrophils,Pleural Fluid 93 %
[2018-03-07 12:08] LABS: RBC,Pleural Fluid 1693 /mm3 (0-0)
--- NOTE | 2018-03-07 13:49 | P.PCN ---
Date of procedure: 03/07/18 Pre-op diagnosis: Pancreatitis, abnormal findings on imaging with dilated PD and large ampula Procedure: PROCEDURE PERFORMED EGD with biopsy followed by EUS PROCEDURE: The procedure, risks and benefits were discussed with Patient/POA and informed consent was obtained. Anesthesia sedated Patient with Diprivan. Patient was placed in the left lateral decubitus position. EGD: The Pentax videoscope was introduced through the oropharynx and advanced to the second portion of the duodenum under direct visualization. Retroflexion was performed in the stomach. FINDINGS: The esophagus this appeared to be unremarkable and within normal limits The stomach there was patchy erythema in the antrum but no ulcerations and no abscesses were taken for further evaluation the rest of the stomach was unremarkable The duodenum this was normal EUS: The Pentax videoscope was introduced through the oropharynx and advanced to the second portion of the duodenum . FINDINGS: The pancreatic parenchyma appeared to be unremarkable from head to tail homogeneous mildly hypoechoic with a mildly dilated pancreatic duct of 3 mm with no filling defects The ampulla appeared to be unremarkable and within normal limits The common bile duct appeared to be mildly dilated throughout with a smooth tapering into the ampulla measuring at about 7 mm with no filling defects The patient did have a very unusual and irregular signal from the anterior and superior portions of the pancreatic body and tail extending into the splenic hilum very irregular hypo-and hyperechoic possibly reflecting necrosis due to the patient's clinical condition being improving I opted not to sample it at this point so as not to converted to an infected pseudocyst/necrosis Gallbladder was not seen No lymphadenopathy ESTIMATED BLOOD LOSS: None SPECIMENS REMOVED: Gastric biopsy COMPLICATIONS: None IMPRESSION: Gastritis Pancreatic pseudocyst/necrosis Mildly dilated pancreatic duct and mildly dilated common bile duct otherwise unremarkable PLAN: Monitor labs and continue with current supportive care Follow-up with GI post discharge Anesthesia: MAC Surgeon: Yaya Munoz Condition: stable Disposition: floor
[2018-03-07 14:48] LABS: Baso # (Auto) 0.1 th/mm3 (0.0-0.2); Baso % (Auto) 0.2 % (0.0-2.0); Eos % (Auto) 0.1 % (0.0-4.0); Hematocrit 36.3 % (35.0-46.0); Hemoglobin 12.5 gm/dL (11.6-15.3); Lymph # (Auto) 1.5 th/mm3 (1.0-4.8); Mean Corpuscular HGB Conc 34.4 % (32.0-36.0); Mean Corpuscular Hemoglobin 32.9 pg (27.0-34.0); Mean Corpuscular Volume 95.8 fL (80.0-100.0); Mean Platelet Volume 7.6 fL (7.0-11.0); Mono # (Auto) 1.7 th/mm3 (0.0-0.9); Mono % (Auto) 7.5 % (0.0-8.0); Neut # (Auto) 18.8 th/mm3 (1.8-7.7); Neut % (Auto) 85.2 % (16.0-70.0); Platelet Count 298 th/mm3 (150-450); Red Blood Count 3.79 mil/mm3 (4.00-5.30); Red Cell Distribution Width 14.1 % (11.6-17.2); White Blood Count 22.1 th/mm3 (4.0-11.0)
[2018-03-08] MEDS: Morphine Sulfate Inj 2 MG/ML Vial IV.PUSH PRN ×6 (03:33→21:20)
[2018-03-08 04:30] LABS: Hematocrit 33.3 % (35.0-46.0); Hemoglobin 11.2 gm/dL (11.6-15.3); Mean Corpuscular HGB Conc 33.6 % (32.0-36.0); Mean Corpuscular Hemoglobin 31.9 pg (27.0-34.0); Mean Corpuscular Volume 94.9 fL (80.0-100.0); Mean Platelet Volume 7.4 fL (7.0-11.0); Platelet Count 311 th/mm3 (150-450); Red Blood Count 3.51 mil/mm3 (4.00-5.30); Red Cell Distribution Width 13.9 % (11.6-17.2); White Blood Count 17.3 th/mm3 (4.0-11.0)
[2018-03-08 04:59] LABS: Albumin 2.2 g/dL (3.4-5.0); Anion Gap 6 meq/L (5-15); Aspartate Aminotransferase 27 U/L (15-37); Blood Urea Nitrogen 9 mg/dL (7-18); Calcium 7.7 mg/dL (8.5-10.1); Chloride 102 meq/L (98-107); Glomerular Filtration Rate Greater Than 89 mL/min (>89); Glucose,Random 100 mg/dL (74-106); Lipase 344 U/L (73-393); Potassium 3.2 meq/L (3.5-5.1); Sodium 136 meq/L (136-145)
[2018-03-08 05:00] LABS: Alanine Aminotransferase 15 U/L (10-53)
[2018-03-08 05:04] LABS: Alkaline Phosphatase 60 U/L (45-117); Total Protein 5.8 g/dL (6.4-8.2)
--- NOTE | 2018-03-08 11:28 | US ---
EXAM DATE: 03/07/2018 11:01 AM EST AGE/SEX: 58 years / Female INDICATIONS: Left pleural effusion. CLINICAL DATA: This is the patient's initial encounter. Patient reports that signs and symptoms have been present for 3 days and indicates a pain score of 6/10. MEDICAL/SURGICAL HISTORY: Osteoporosis. Pancreatitis. Right kidney failure. . Right hand surg donnell. COMPARISON: No prior exams available for comparison. FLUID: Total volume of 600 cc of dark brown fluid was removed. Fluid was sent to lab for ordered studies. . . TECHNIQUE: Ultrasound guidance for thoracentesis. Thoracentesis. The risks, benefits, and alternatives to ultrasound guided thoracentesis were explained to the patien t in lay simple terms, including the risk of bleeding and infection. Written and verbal informed con sent was obtained. Appropriate area for left thoracentesis was marked under ultrasound guidance with the patient in the upright position. Overlying skin was prepped and draped in the usual sterile fashion and with local anesthetic, a dermatotomy was made with an 11 blade scalpel. A 6 Chadian thoracentesis catheter was p laced in the pleural space and fluid was removed. Catheter was then removed and a sterile dressing a pplied. There were no immediate complications. The patient tolerated the procedure well and the left the ultrasound suite in stable condition. Chest radiograph is to be obtained. FINDINGS: Adequate fluid for thoracentesis. CONCLUSION: 1. Uncomplicated thoracentesis. 600 cc of dark brown fluid was removed. Electronically signed by: Aniket Robles MD Board Certified Radiologist 03/08/2018 11:27 AM EST
--- NOTE | 2018-03-08 12:34 | P.PNID ---
Subjective Remarks: Patient is a 58-year-old female, presented to the hospital with several day history of severe left-sided abdominal pain and into the flank area on the left side. She also started having nausea and vomiting. She has not had any fever chills or sweats. Patient apparently had a prior episode of pancreatitis about 9 years ago and this was after she had problem with her kidneys and had ureteral stricture found. After that episode of pancreatitis, she has not had any recurrence and has been doing well. She denies any significant alcohol abuse. She has not been on any new medications. Has not had any respiratory problem. She denies any dysuria. On presentation she had a white count of 17, 000, and is up to 21,000. Her lipase was up to 28,000. 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 There is also a large left pleural effusion seen. Infectious disease consultation has been requested to assist with evaluation and treatment of patient with pancreatitis. Notes reviewed Temps ok Feels better today Tolerating clear liquid diet Had GI procedure yesterday WBC lower Lipase down to normal Lipase lower BC negative UA ok Pleural fluid pending Sputum normal jt Antibiotics: Meropenem Past Medical History: Depression Osteoporosis Pancreatitis Allergies/Adverse Reactions: Allergies No Known Allergies Allergy (Verified 03/04/18 09:54) Objective Vital Signs 03/07/18 13:45 03/07/18 16:00 03/07/18 20:00 Temperature 98.6 F 97.9 F 98.3 F Pulse Rate 104 H 93 H 108 H Respiratory Rate 18 20 20 Blood Pressure 120/72 117/60 149/75 H Pulse Oximetry 97 109 H 94 L 03/08/18 00:00 03/08/18 03:30 03/08/18 04:15 Temperature 97.9 F 98.5 F Pulse Rate 103 H 99 H Respiratory Rate 20 18 16 Blood Pressure 131/75 123/66 Pulse Oximetry 98 94 L 03/08/18 07:15 Temperature 97.9 F Pulse Rate 102 H Respiratory Rate 20 Blood Pressure 132/70 Pulse Oximetry 99 Intake & Output 03/07/18 03/08/18 03/08/18 18:59 06:59 18:59 Intake Total 1650 / 1650 1200 / 1200 Output Total 700 / 700 Balance 1650 / 1650 500 / 500 Weight 50.4 kg Intake: IV 1350 / 1350 1200 / 1200 LR 1000 mL Inj 1,000 ML @ 75 1000 / 1000 1000 / 1000 mls/hr IV.CONT .[id number] [facility] Rx# :[id number] Merrem Inj 1,000 MG In NS Inj 100 / 100 200 / 200 100 ML @ 200 mls/hr IV.SIG Q8H [facility] Rx#:[id number] Vabomere Inj 1,000 MG In NS Inj 250 / 250 250 ML @ 83.333 mls/hr IV.SIG Q12H [facility]NE Rx#:[id number] Anesthesia Amount 300 / 300 Output: Urine 700 / 700 Other: # Urine Diapers 1 Date of Last Bowel Movement 03/04/18 03/04/18 03/04/18 03/04/18 17:27 Blood - Peripheral Aerobic Blood Culture - Preliminary No growth in 4 days 03/04/18 17:27 Blood - Peripheral Anaerobic Blood Culture - Preliminary No growth in 4 days 03/04/18 17:20 Blood - Peripheral Aerobic Blood Culture - Preliminary No growth in 4 days 03/04/18 17:20 Blood - Peripheral Anaerobic Blood Culture - Preliminary No growth in 4 days 03/07/18 10:15 Fluid - Pleural fluid Gram Stain - Final 03/07/18 10:15 Fluid - Pleural fluid Body Fluid Culture - Pending 03/06/18 13:45 Sputum - Expectorated Sputum Gram Stain - Final 03/06/18 13:45 Sputum - Expectorated Sputum Sputum Culture - Preliminary Moderate growth normal respiratory jt at 24 hours 03/07/18 10:15 Fluid - Pleural fluid Acid Fast Bacilli Smear - Pending 03/07/18 10:15 Fluid - Pleural fluid Mycobacterial Culture - Pending Lab - Hematology Results 03/07/18 03/08/18 14:15 04:11 WBC 22.1 H 17.3 H RBC 3.79 L 3.51 L Hgb 12.5 11.2 L Hct 36.3 33.3 L MCV 95.8 94.9 MCH 32.9 31.9 MCHC 34.4 33.6 RDW 14.1 13.9 Plt Count 298 311 MPV 7.6 7.4 Neut % (Auto) 85.2 H Lymph % (Auto) 7.0 L [place] % (Auto) 7.5 Eos % (Auto) 0.1 Baso % (Auto) 0.2 Neut # (Auto) 18.8 H Lymph # (Auto) 1.5 [place] # (Auto) 1.7 H Eos # (Auto) 0.0 Baso # (Auto) 0.1 WBC Differential . Differential Comment Auto diff final Lab - Chemistry Results 03/06/18 03/07/18 03/08/18 16:52 14:15 04:11 Sodium 136 Potassium 3.2 L Chloride 102 Carbon Dioxide 28.0 Anion Gap 6 BUN 9 Creatinine 0.65 Estimated GFR Greater than 89 Random Glucose 100 Calcium 7.7 L Total Bilirubin 0.8 AST 27 ALT 15 Alkaline Phosphatase 60 Total Protein 5.8 L Albumin 2.2 L D Lipase 343 344 Procalcitonin 0.12 H Imaging: ITS Impressions Abdomen/Pelvis CT 03/04/18 09:54 CONCLUSION: 1. Dilatation of the common bile duct measuring up to 1.3 cm with an 8 to 9 mm round soft tissue masslike structure which extends into the fluid-filled duodenum. 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 The gallbladder is unremarkable. 2. Fluid in the left upper abdomen surrounding portions of the body and tail the pancreas as well as portions of the spleen. The finding is nonspecific and the differential diagnosis includes pancreatitis. The left kidney appears unremarkable. 3. Small atrophic right kidney. Cholangiopancreatography MRI 03/04/18 15:14 CONCLUSION: 1. Dilated common bile duct and is a stricture that appears to be smooth involving the distal common bile duct at the level of the ampulla with possible slight invagination into the lumen of the duodenum. May consider further evaluation with direct visualization and endoscopy. Chest X-Ray 03/07/18 00:00 CONCLUSION: Negative for pneumothorax following left thoracentesis Thoracentesis Ultrasound 03/07/18 08:00 CONCLUSION: 1. Uncomplicated thoracentesis. 600 cc of dark brown fluid was removed. Physical Exam: GENERAL: awake and alert, not in respiratory distress. SKIN: Cool and dry. No generalized rash. HEAD: Atraumatic. Normocephalic. No temporal wasting, or tenderness. EYES: [place] conjunctiva. No petechia or hemorrhage. No scleral icterus. No injection or drainage. EARS, NOSE AND THROAT: Mucous membranes pink and moist. No oral lesions noted. No exudate. No oral thrush. NECK: Trachea midline. Supple and not tender, no meningeal signs CARDIOVASCULAR: Regular rate and rhythm, tachycardic. No murmurs, rubs or gallops heard RESPIRATORY: Decreased breath sounds at L base ABDOMEN: Mildly distended, bowel sounds hypoactive, diffuse tenderness, krishna on L, no guarding, no rebound. EXTREMITIES: No clubbing, cyanosis, or edema. No calf tenderness. NEUROLOGICAL: Grossly non-focal. PSYCHIATRIC: Normal affect, calm and cooperative. LINE: No evidence of infection Assessment and Plan - Plan Impression Severe pancreatitis Possible sepsis due to pancreatitis, better Leukocytosis due to pancreatitis, decreasing Has cough, and pleural effusion - ?sympathetic effusion - ?PNA Had dil CBD Recommendation Patient currently on Meropenem, continue for now Check procalcitonin Follow CBC Follow C/S Monitor progress D/W Dr Vargas ([facility])
--- NOTE | 2018-03-08 16:09 | ECG ---
Date Performed: 03/07/2018 Time Performed: 13:05:38 PTAGE: 58 years EKG: Sinus tachycardia POSSIBLE LATERAL MYOCARDIAL INFARCTION , PROBABLY OLD POSSIBLE INFERIOR M YOCARDIAL INFARCTION , PROBABLY OLD ABNORMAL RHYTHM ECG NO PREVIOUS TRACING DOCTOR: Elmo Gallagher Interpretating Date/Time 03/08/2018 16:09:00
--- NOTE | 2018-03-08 16:30 | P.PNIM ---
Subjective Interval history: Follow-up for acute pancreatitis, possible ampullary mass as well as left pleural effusion. Patient is resting in bed. Denies any chest pain, shortness of breath, fever or chills. Physical Exam Vital signs: Last Vital Signs Temp 98.0 F 03/08/18 12:00 Pulse 100 H 03/08/18 12:00 Resp 20 03/08/18 12:00 BP 148/67 H 03/08/18 12:00 Pulse Ox 92 L 03/08/18 12:00 Intake & Output 03/06/18 03/07/18 03/08/18 03/09/18 06:59 06:59 06:59 06:59 Intake Total 2490 / 2490 3240 / 3240 2850 / 2850 100 / 100 Output Total 600 / 600 600 / 600 700 / 700 Balance 1890 / 1890 2640 / 2640 2150 / 2150 100 / 100 Weight 48.9 kg 48.9 kg 50.4 kg GENERAL: Alert, oriented x3, NAD. SKIN: Warm and dry. HEAD: Normocephalic. EYES: No scleral icterus. No injection or drainage. NECK: Supple, trachea midline. No JVD or lymphadenopathy. CARDIOVASCULAR: Regular rate and rhythm without murmurs, gallops, or rubs. RESPIRATORY: Breath sounds equal bilaterally. No accessory muscle use. GASTROINTESTINAL: Abdomen soft, mild tenderness to palpation, nondistended. MUSCULOSKELETAL: No cyanosis, or edema. BACK: Nontender without obvious deformity. No CVA tenderness. Results Labs CBC & Chem 7: 03/08/18 04:11 03/08/18 04:11 Labs: Microbiology 03/07/18 10:15 Fluid - Pleural fluid Gram Stain - Final 03/07/18 10:15 Fluid - Pleural fluid Body Fluid Culture - Preliminary No growth in 24 hours 03/06/18 13:45 Sputum - Expectorated Sputum Gram Stain - Final 03/06/18 13:45 Sputum - Expectorated Sputum Sputum Culture - Final Heavy growth normal respiratory jt 03/04/18 17:27 Blood - Peripheral Aerobic Blood Culture - Preliminary No growth in 4 days 03/04/18 17:27 Blood - Peripheral Anaerobic Blood Culture - Preliminary No growth in 4 days 03/04/18 17:20 Blood - Peripheral Aerobic Blood Culture - Preliminary No growth in 4 days 03/04/18 17:20 Blood - Peripheral Anaerobic Blood Culture - Preliminary No growth in 4 days Imaging Imaging: Impressions Thoracentesis Ultrasound 03/07/18 08:00 CONCLUSION: 1. Uncomplicated thoracentesis. 600 cc of dark brown fluid was removed. Assessment and Plan (1) Acute pancreatitis: Code(s): K85.90 - Acute pancreatitis without necrosis or infection, unspecified Status: Acute Plan This patient is a 58 y/o F with a diagnosis of osteoarthritis, hx of right ureteral stricture which led to right sided kidney failure. She has an extensive tobacco smoking hx. She presents to the ED with complaints of abdominal pain for the past few days that worsened yesterday. She also began to have nausea and vomiting. She has a hx of pancreatitis several years ago however is unsure of what the cause was at that time. She denies any recent alcohol use. She denies any fevers or chills. Sepsis (tachycardic, leukocytosis, possible pancreatitis related infection) Patient presents with abd pain. Ct abd/pelv shows dilation of the cbd 1.3 cm with 9mm round mass that extends into the duodenum. Pancreas shows findings consistent with [place] [address] upon admission and currently 344. -Patient is on LR - will reduce to 75cc/hour. -GI is following. 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 Endoscopic ultrasound was completed on 03/07/2018 -shows pancreatic pseudocyst/ necrosis. Left sided pleural effusion Cough -WBC around 22K --> 17K. -Sputum grew normal jt. Pleural fluid no growth so far. -US guided left thoracentesis on 03/07/2018. Tobacco abuse -Patient advised to quit smoking. Full code. Heparin SQ for DVT prophylaxis. _ (1) Acute pancreatitis Qualifiers: Acute pancreatitis complication: no infection or necrosis Pancreatitis type: other Qualified Code(s): K85.80 - Other acute pancreatitis without necrosis or infection
--- NOTE | 2018-03-08 17:30 | P.PNGI ---
Subjective Interval history: Patient laying supine in bed Reports improving abdominal discomfort Denies any nausea or vomiting States tolerating clear liquids well Post EUS <Judie Nicohls - Last Filed: 03/08/18 17:24> Physical Exam Vital signs: Vital Signs 03/07/18 20:00 03/08/18 00:00 03/08/18 03:30 Temperature 98.3 F 97.9 F 98.1 F Pulse Rate 108 H 103 H 107 H Respiratory Rate 20 20 20 Blood Pressure 149/75 H 131/75 121/63 Pulse Oximetry 94 L 98 90 L 03/08/18 04:15 03/08/18 07:15 03/08/18 12:00 Temperature 97.9 F 98.0 F Pulse Rate 102 H 100 H Respiratory Rate 16 20 20 Blood Pressure 132/70 148/67 H Pulse Oximetry 99 92 L Intake & Output 03/07/18 03/08/18 03/08/18 18:59 06:59 18:59 Intake Total 1650 / 1650 1200 / 1200 100 / 100 Output Total 700 / 700 Balance 1650 / 1650 500 / 500 100 / 100 Weight 50.4 kg Intake: IV 1350 / 1350 1200 / 1200 100 / 100 LR 1000 mL Inj 1,000 ML @ 75 1000 / 1000 1000 / 1000 mls/hr IV.CONT .[id number] [facility] Rx# :[id number] Merrem Inj 1,000 MG In NS Inj 100 / 100 200 / 200 100 / 100 100 ML @ 200 mls/hr IV.SIG Q8H [facility] Rx#:[id number] Vabomere Inj 1,000 MG In NS Inj 250 / 250 250 ML @ 83.333 mls/hr IV.SIG Q12H [facility] Rx#:[id number] Anesthesia Amount 300 / 300 Output: Urine 700 / 700 Other: # Urine Diapers 1 Date of Last Bowel Movement 03/04/18 03/04/18 03/04/18 - Constitutional no acute distress - Routine HEENT Exam Head: Present: normocephalic - Routine Respiratory Exam Present: decreased breath sounds, CTA bilaterally Comments: Left lower lobe - Routine Cardiovascular Exam Present: RRR - Routine Abdominal Exam Present: soft, normoactive bowel sounds. Absent: tenderness, distended, guarding, firm - Routine Extremities Exam Absent: edema - Routine Skin Exam Present: dry, warm - Routine Neurological Exam Present: alert <Nichols,Judie - Last Filed: 03/08/18 17:24> Vital signs: Vital Signs 03/08/18 12:00 03/08/18 20:00 03/09/18 00:00 Temperature 98.0 F 98.4 F 97.9 F Pulse Rate 100 H 105 H 107 H Respiratory Rate 20 20 20 Blood Pressure 148/67 H 122/64 126/78 Pulse Oximetry 92 L 93 L 96 03/09/18 04:00 03/09/18 08:00 Temperature 98.1 F 98.2 F Pulse Rate 103 H 97 H Respiratory Rate 20 20 Blood Pressure 102/60 105/59 L Pulse Oximetry 95 94 L Intake & Output 03/08/18 03/09/18 03/09/18 18:59 06:59 18:59 Intake Total 1100 / 1100 200 / 200 Balance 1100 / 1100 200 / 200 Weight 50.1 kg Intake: IV 1100 / 1100 200 / 200 LR 1000 mL Inj 1,000 ML @ 75 1000 / 1000 mls/hr IV.CONT .[id number] [facility] Rx# :[id number] Merrem Inj 1,000 MG In NS Inj 100 / 100 200 / 200 100 ML @ 200 mls/hr IV.SIG Q8H [facility] Rx#:[id number] Other: # Voids 1 # Urine Diapers 2 Date of Last Bowel Movement 03/04/18 03/04/18 <Matt Nicolas - Last Filed: 03/09/18 09:05> Results - Labs CBC & Chem 7: 03/08/18 04:11 03/08/18 04:11 Laboratory Results - last 24 hr 03/08/18 03/08/18 04:11 04:11 WBC 17.3 H RBC 3.51 L Hgb 11.2 L Hct 33.3 L MCV 94.9 MCH 31.9 MCHC 33.6 RDW 13.9 Plt Count 311 MPV 7.4 Sodium 136 Potassium 3.2 L Chloride 102 Carbon Dioxide 28.0 Anion Gap 6 BUN 9 Creatinine 0.65 Estimated GFR Greater than 89 Random Glucose 100 Calcium 7.7 L Total Bilirubin 0.8 AST 27 ALT 15 Alkaline Phosphatase 60 Total Protein 5.8 L Albumin 2.2 L D Lipase 344 Microbiology 03/07/18 10:15 Fluid - Pleural fluid Gram Stain - Final 03/07/18 10:15 Fluid - Pleural fluid Body Fluid Culture - Preliminary No growth in 24 hours 03/06/18 13:45 Sputum - Expectorated Sputum Gram Stain - Final 03/06/18 13:45 Sputum - Expectorated Sputum Sputum Culture - Final Heavy growth normal respiratory jt 03/04/18 17:27 Blood - Peripheral Aerobic Blood Culture - Preliminary No growth in 4 days 03/04/18 17:27 Blood - Peripheral Anaerobic Blood Culture - Preliminary No growth in 4 days 03/04/18 17:20 Blood - Peripheral Aerobic Blood Culture - Preliminary No growth in 4 days 03/04/18 17:20 Blood - Peripheral Anaerobic Blood Culture - Preliminary No growth in 4 days - Imaging Impressions Thoracentesis Ultrasound 03/07/18 08:00 CONCLUSION: 1. Uncomplicated thoracentesis. 600 cc of dark brown fluid was removed. <Judie Nichols - Last Filed: 03/08/18 17:24> - Labs CBC & Chem 7: 03/09/18 05:33 03/09/18 05:33 Laboratory Results - last 24 hr 03/09/18 03/09/18 05:33 05:33 WBC 17.6 H RBC 3.19 L Hgb 10.5 L Hct 30.3 L MCV 94.9 MCH 32.9 MCHC 34.6 RDW 14.2 Plt Count 315 MPV 7.8 Neut % (Auto) 79.4 H Lymph % (Auto) 9.3 [place] % (Auto) 10.4 H Eos % (Auto) 0.7 Baso % (Auto) 0.2 Neut # (Auto) 14.0 H Lymph # (Auto) 1.6 [place] # (Auto) 1.8 H Eos # (Auto) 0.1 Baso # (Auto) 0.0 WBC Differential . Differential Comment Auto diff final Sodium 138 Potassium 3.1 L Chloride 101 Carbon Dioxide 30.1 Anion Gap 7 BUN 7 Creatinine 0.67 Estimated GFR Greater than 89 Random Glucose 92 Calcium 7.1 L* Calcium Adj for Albumin 8.8 Total Bilirubin 0.7 AST 41 H ALT 24 Alkaline Phosphatase 80 Total Protein 5.5 L Albumin 1.9 L Lipase 407 H Microbiology 03/07/18 10:15 Fluid - Pleural fluid Gram Stain - Final 03/07/18 10:15 Fluid - Pleural fluid Body Fluid Culture - Preliminary No growth in 48 hours 03/06/18 13:45 Sputum - Expectorated Sputum Gram Stain - Final 03/06/18 13:45 Sputum - Expectorated Sputum Sputum Culture - Final Heavy growth normal respiratory jt 03/04/18 17:27 Blood - Peripheral Aerobic Blood Culture - Preliminary No growth in 4 days 03/04/18 17:27 Blood - Peripheral Anaerobic Blood Culture - Preliminary No growth in 4 days 03/04/18 17:20 Blood - Peripheral Aerobic Blood Culture - Preliminary No growth in 4 days 03/04/18 17:20 Blood - Peripheral Anaerobic Blood Culture - Preliminary No growth in 4 days - Imaging Impressions Thoracentesis Ultrasound 03/07/18 08:00 CONCLUSION: 1. Uncomplicated thoracentesis. 600 cc of dark brown fluid was removed. <Matt Nicolas - Last Filed: 03/09/18 09:05> Assessment and Plan (1) Acute pancreatitis Status: Acute Code(s): K85.90 - Acute pancreatitis without necrosis or infection, unspecified - Plan This patient is a 58-year-old female with past medical history significant for depression, osteoporosis, pancreatitis, and osteoarthritis. Patient also reports history of ureteral stricture and right-sided kidney failure. Upon consultation, patient reports that she has had 3 episodes of pancreatitis. She states her last episode was 9 years ago. Patient denies any use of EtOH. States that she quit drinking 1 year ago. Patient denies any diarrhea fever or chills. Patient endorses smoking tobacco 1 pack/day. She denies any use of illicit drugs and denies any known family history of gastrointestinal disorders. 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 Acute pancreatitis Patient reports 3 noted episodes of pancreatitis. Last being 9 years ago. Patient denies any use of EtOH. She states she quit 1 year ago. Does report now drinking occasional EtOH socially. 03/04/2018 CT abdomen and pelvis reveal the following- 1. Dilatation of the common bile duct measuring up to 1.3 cm with an 8 to 9 mm round soft tissue masslike structure which extends into the fluid-filled duodenum. 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 The gallbladder is unremarkable. 2. Fluid in the left upper abdomen surrounding portions of the body and tail the pancreas as well as portions of the spleen. The finding is nonspecific and the differential diagnosis includes pancreatitis. The left kidney appears unremarkable. 3. Small atrophic right kidney. WBC 17.9 hemoglobin 13.9 hematocrit 41.1 total bilirubin 0.5 AST 18 ALT 14 alk phos 92 lipase 28,791 03/05/2018 03/04/2018 MRCP revealed the following-- Dilated common bile duct and is a stricture that appears to be smooth involving the distal common bile duct at the level of the ampulla with possible slight invagination into the lumen of the duodenum. May consider further evaluation with direct visualization and endoscopy. WBC 21.3 RBC 3.9 hemoglobin 12.7 hematocrit 37.6 platelet count 331 lipase 4220 CA 199 21.6 Patient endorses decreasing abdominal discomfort. 03/06/2018 WBC 22.9 hemoglobin 13.3 hematocrit 38.7 Total bilirubin 0.8 AST 28 ALT 12 alk phos 66 amylase 439 lipase 748 trending down pro-calcitonin 0.16 Patient reports decreasing abdominal discomfort. Denies nausea vomiting 03/08/2018 Patient reporting decreased abdominal pain Denies any nausea vomiting Tolerating clear liquid well -WBC 17.3 improving, hemoglobin 11.2 hematocrit 33.3 -Total bilirubin 0.8 AST 27 ALT 15 alk phos 60 albumin 2.2 lipase 344 03/07/2018 EUS revealed the following findings: Gastritis Pancreatic pseudocyst/necrosis Mildly dilated pancreatic duct and mildly dilated common bile duct otherwise unremarkable Plan -Clear liquid diet -Analgesics and antiemetics as per attending -Monitor labs -Continue to monitor patient closely -Patient will need to follow-up with Dr. [facility] for possible drainage of pseudocyst -Infectious disease following -Continue IV hydration -Supportive care -Further recommendations to follow This patient has been seen by myself and Dr. Nicolas and this note is written on his behalf - Attending Attestation Dr. Nicolas <Judie Nichols - Last Filed: 03/08/18 17:24> (1) Acute pancreatitis Status: Acute Code(s): K85.90 - Acute pancreatitis without necrosis or infection, unspecified - Attending Attestation I have seen and examined the patient. I agree with the above note and recommendations. <Matt Nicolas - Last Filed: 03/09/18 09:05> <Judie Nichols - Last Filed: 03/08/18 17:24> (1) Acute pancreatitis Qualifiers: Pancreatitis type: other Acute pancreatitis complication: no infection or necrosis Qualified Code(s): K85.80 - Other acute pancreatitis without necrosis or infection <Matt Nicolas - Last Filed: 03/09/18 09:05> (1) Acute pancreatitis Qualifiers: Pancreatitis type: other Acute pancreatitis complication: no infection or necrosis Qualified Code(s): K85.80 - Other acute pancreatitis without necrosis or infection
[2018-03-09] MEDS: Morphine Sulfate Inj 2 MG/ML Vial IV.PUSH PRN ×6 (01:16→22:33)
[2018-03-09 07:14] LABS: Baso % (Auto) 0.2 % (0.0-2.0); Eos # (Auto) 0.1 th/mm3 (0.0-0.4); Eos % (Auto) 0.7 % (0.0-4.0); Hematocrit 30.3 % (35.0-46.0); Hemoglobin 10.5 gm/dL (11.6-15.3); Lymph # (Auto) 1.6 th/mm3 (1.0-4.8); Lymph % (Auto) 9.3 % (9.0-44.0); Mean Corpuscular HGB Conc 34.6 % (32.0-36.0); Mean Corpuscular Hemoglobin 32.9 pg (27.0-34.0); Mean Corpuscular Volume 94.9 fL (80.0-100.0); Mean Platelet Volume 7.8 fL (7.0-11.0); Mono # (Auto) 1.8 th/mm3 (0.0-0.9); Mono % (Auto) 10.4 % (0.0-8.0); Neut % (Auto) 79.4 % (16.0-70.0); Platelet Count 315 th/mm3 (150-450); Red Blood Count 3.19 mil/mm3 (4.00-5.30); Red Cell Distribution Width 14.2 % (11.6-17.2); White Blood Count 17.6 th/mm3 (4.0-11.0)
[2018-03-09 07:52] LABS: Alanine Aminotransferase 24 U/L (10-53); Albumin 1.9 g/dL (3.4-5.0); Alkaline Phosphatase 80 U/L (45-117); Anion Gap 7 meq/L (5-15); Aspartate Aminotransferase 41 U/L (15-37); Blood Urea Nitrogen 7 mg/dL (7-18); Calcium 7.1 mg/dL (8.5-10.1); Carbon Dioxide 30.1 meq/L (21.0-32.0); Chloride 101 meq/L (98-107); Glomerular Filtration Rate Greater Than 89 mL/min (>89); Glucose,Random 92 mg/dL (74-106); Lipase 407 U/L (73-393); Potassium 3.1 meq/L (3.5-5.1); Sodium 138 meq/L (136-145); Total Protein 5.5 g/dL (6.4-8.2)
--- NOTE | 2018-03-09 13:21 | P.PNIM ---
Subjective Interval history: Follow-up for acute pancreatitis, possible ampullary mass as well as left pleural effusion. Patient is resting in bed. She reports improved respiratory status. She is currently on 2 L of oxygen via nasal cannula. Denies any chest pain, shortness of breath, fever or chills. She continues to have abdominal pain. Physical Exam Vital signs: Last Vital Signs Temp 98.6 F 03/09/18 11:55 Pulse 97 H 03/09/18 11:55 Resp 15 03/09/18 11:55 BP 124/64 03/09/18 11:55 Pulse Ox 94 L 03/09/18 11:55 Intake & Output 03/07/18 03/08/18 03/09/18 03/10/18 06:59 06:59 06:59 06:59 Intake Total 3240 / 3240 2850 / 2850 1300 / 1300 1000 / 1000 Output Total 600 / 600 700 / 700 500 / 500 Balance 2640 / 2640 2150 / 2150 1300 / 1300 500 / 500 Weight 48.9 kg 50.4 kg 50.1 kg Narrative: GENERAL: Alert, oriented x3, NAD. SKIN: Warm and dry. HEAD: Normocephalic. EYES: No scleral icterus. No injection or drainage. NECK: Supple, trachea midline. No JVD or lymphadenopathy. CARDIOVASCULAR: Regular rate and rhythm without murmurs, gallops, or rubs. RESPIRATORY: Breath sounds equal bilaterally. No accessory muscle use. GASTROINTESTINAL: Abdomen soft, moderately tender to palpation, nondistended. MUSCULOSKELETAL: No cyanosis, or edema. BACK: Nontender without obvious deformity. No CVA tenderness. Results Labs CBC & Chem 7: 03/09/18 05:33 03/09/18 05:33 Labs: Microbiology 03/07/18 10:15 Fluid - Pleural fluid Acid Fast Bacilli Smear - Final No acid fast bacilli seen 03/04/18 17:27 Blood - Peripheral Aerobic Blood Culture - Final No growth in 5 days 03/04/18 17:27 Blood - Peripheral Anaerobic Blood Culture - Final No growth in 5 days 03/04/18 17:20 Blood - Peripheral Aerobic Blood Culture - Final No growth in 5 days 03/04/18 17:20 Blood - Peripheral Anaerobic Blood Culture - Final No growth in 5 days 03/07/18 10:15 Fluid - Pleural fluid Gram Stain - Final 03/07/18 10:15 Fluid - Pleural fluid Body Fluid Culture - Preliminary No growth in 48 hours 03/06/18 13:45 Sputum - Expectorated Sputum Gram Stain - Final 03/06/18 13:45 Sputum - Expectorated Sputum Sputum Culture - Final Heavy growth normal respiratory jt Assessment and Plan (1) Acute pancreatitis: Code(s): K85.90 - Acute pancreatitis without necrosis or infection, unspecified Status: Acute Plan This patient is a 58 y/o F with a diagnosis of osteoarthritis, hx of right ureteral stricture which led to right sided kidney failure. She has an extensive tobacco smoking hx. She presents to the ED with complaints of abdominal pain for the past few days that worsened yesterday. She also began to have nausea and vomiting. She has a hx of pancreatitis several years ago however is unsure of what the cause was at that time. She denies any recent alcohol use. She denies any fevers or chills. Sepsis (tachycardic, leukocytosis, possible pancreatitis related infection) Acute pancreatitis Ct abd/pelv shows dilation of the cbd 1.3 cm with 9mm round mass that extends into the duodenum. Pancreas shows findings consistent with [place] [address] upon admission and currently 344. -Patient is on LR - will reduce to 75cc/hour. -GI is following. 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 Endoscopic ultrasound was completed on 03/07/2018 -shows pancreatic pseudocyst/ necrosis. -Still on Clear liquid diet per GI. Patient is on Meropenem. ID following. Left sided pleural effusion Cough -WBC around 22K --> 17K. -Sputum grew normal jt. Pleural fluid no growth so far. -US guided left thoracentesis on 03/07/2018. Tobacco abuse -Patient advised to quit smoking. Full code. Heparin SQ for DVT prophylaxis. _ (1) Acute pancreatitis Qualifiers: Acute pancreatitis complication: no infection or necrosis Pancreatitis type: other Qualified Code(s): K85.80 - Other acute pancreatitis without necrosis or infection
--- NOTE | 2018-03-09 13:26 | P.PNID ---
Subjective Remarks: Patient is a 58-year-old female, presented to the hospital with several day history of severe left-sided abdominal pain and into the flank area on the left side. She also started having nausea and vomiting. She has not had any fever chills or sweats. Patient apparently had a prior episode of pancreatitis about 9 years ago and this was after she had problem with her kidneys and had ureteral stricture found. After that episode of pancreatitis, she has not had any recurrence and has been doing well. She denies any significant alcohol abuse. She has not been on any new medications. Has not had any respiratory problem. She denies any dysuria. On presentation she had a white count of 17, 000, and is up to 21,000. Her lipase was up to 28,000. 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 There is also a large left pleural effusion seen. Infectious disease consultation has been requested to assist with evaluation and treatment of patient with pancreatitis. Notes reviewed Temps ok Notes she is urinating a lot and makes her abdominal pain worse NO N/V Tolerating clears WBC same at 17K Lipase a little higher S/P EUS Antibiotics: Meropenem Past Medical History: Depression Osteoporosis Pancreatitis Allergies/Adverse Reactions: Allergies No Known Allergies Allergy (Verified 03/04/18 09:54) Objective Vital Signs 03/08/18 20:00 03/09/18 00:00 03/09/18 04:00 Temperature 98.4 F 97.9 F 98.1 F Pulse Rate 105 H 107 H 103 H Respiratory Rate 20 20 20 Blood Pressure 122/64 126/78 102/60 Pulse Oximetry 93 L 96 95 03/09/18 08:00 03/09/18 11:55 Temperature 98.2 F 98.6 F Pulse Rate 97 H 97 H Respiratory Rate 20 15 Blood Pressure 105/59 L 124/64 Pulse Oximetry 94 L 94 L Intake & Output 03/08/18 03/09/18 03/09/18 18:59 06:59 18:59 Intake Total 1100 / 1100 200 / 200 1000 / 1000 Output Total 500 / 500 Balance 1100 / 1100 200 / 200 500 / 500 Weight 50.1 kg Intake: IV 1100 / 1100 200 / 200 1000 / 1000 LR 1000 mL Inj 1,000 ML @ 75 1000 / 1000 1000 / 1000 mls/hr IV.CONT .[id number] [facility] Rx# :[id number] Merrem Inj 1,000 MG In NS Inj 100 / 100 200 / 200 100 ML @ 200 mls/hr IV.SIG Q8H [facility] Rx#:[id number] Output: Urine 500 / 500 Other: # Voids 1 2 # Incontinent Voids 1 # Urine Diapers 2 Date of Last Bowel Movement 03/04/18 03/04/18 03/07/18 10:15 Fluid - Pleural fluid Acid Fast Bacilli Smear - Final No acid fast bacilli seen 03/07/18 10:15 Fluid - Pleural fluid Mycobacterial Culture - Pending 03/04/18 17:27 Blood - Peripheral Aerobic Blood Culture - Final No growth in 5 days 03/04/18 17:27 Blood - Peripheral Anaerobic Blood Culture - Final No growth in 5 days 03/04/18 17:20 Blood - Peripheral Aerobic Blood Culture - Final No growth in 5 days 03/04/18 17:20 Blood - Peripheral Anaerobic Blood Culture - Final No growth in 5 days 03/07/18 10:15 Fluid - Pleural fluid Gram Stain - Final 03/07/18 10:15 Fluid - Pleural fluid Body Fluid Culture - Preliminary No growth in 48 hours 03/06/18 13:45 Sputum - Expectorated Sputum Gram Stain - Final 03/06/18 13:45 Sputum - Expectorated Sputum Sputum Culture - Final Heavy growth normal respiratory jt Lab - Hematology Results 03/07/18 03/08/18 03/09/18 14:15 04:11 05:33 WBC 22.1 H 17.3 H 17.6 H RBC 3.79 L 3.51 L 3.19 L Hgb 12.5 11.2 L 10.5 L Hct 36.3 33.3 L 30.3 L MCV 95.8 94.9 94.9 MCH 32.9 31.9 32.9 MCHC 34.4 33.6 34.6 RDW 14.1 13.9 14.2 Plt Count 298 311 315 MPV 7.6 7.4 7.8 Neut % (Auto) 85.2 H 79.4 H Lymph % (Auto) 7.0 L 9.3 [place] % (Auto) 7.5 10.4 H Eos % (Auto) 0.1 0.7 Baso % (Auto) 0.2 0.2 Neut # (Auto) 18.8 H 14.0 H Lymph # (Auto) 1.5 1.6 [place] # (Auto) 1.7 H 1.8 H Eos # (Auto) 0.0 0.1 Baso # (Auto) 0.1 0.0 WBC Differential . . Differential Comment Auto diff final Auto diff final Lab - Chemistry Results 03/07/18 03/08/18 03/09/18 14:15 04:11 05:33 Sodium 136 138 Potassium 3.2 L 3.1 L Chloride 102 101 Carbon Dioxide 28.0 30.1 Anion Gap 6 7 BUN 9 7 Creatinine 0.65 0.67 Estimated GFR Greater than 89 Greater than 89 Random Glucose 100 92 Calcium 7.7 L 7.1 L* Calcium Adj for Albumin 8.8 Total Bilirubin 0.8 0.7 AST 27 41 H ALT 15 24 Alkaline Phosphatase 60 80 Total Protein 5.8 L 5.5 L Albumin 2.2 L D 1.9 L Lipase 343 344 407 H Imaging: ITS Impressions Abdomen/Pelvis CT 03/04/18 09:54 CONCLUSION: 1. Dilatation of the common bile duct measuring up to 1.3 cm with an 8 to 9 mm round soft tissue masslike structure which extends into the fluid-filled duodenum. 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 The gallbladder is unremarkable. 2. Fluid in the left upper abdomen surrounding portions of the body and tail the pancreas as well as portions of the spleen. The finding is nonspecific and the differential diagnosis includes pancreatitis. The left kidney appears unremarkable. 3. Small atrophic right kidney. Cholangiopancreatography MRI 03/04/18 15:14 CONCLUSION: 1. Dilated common bile duct and is a stricture that appears to be smooth involving the distal common bile duct at the level of the ampulla with possible slight invagination into the lumen of the duodenum. May consider further evaluation with direct visualization and endoscopy. Chest X-Ray 03/07/18 00:00 CONCLUSION: Negative for pneumothorax following left thoracentesis Thoracentesis Ultrasound 03/07/18 08:00 CONCLUSION: 1. Uncomplicated thoracentesis. 600 cc of dark brown fluid was removed. Physical Exam: GENERAL: awake and alert, not in respiratory distress. SKIN: Cool and dry. No generalized rash. EYES: [place] conjunctiva. No petechia or hemorrhage. No scleral icterus. No injection or drainage. EARS, NOSE AND THROAT: Mucous membranes pink and moist. No oral lesions noted. No exudate. No oral thrush. NECK: Trachea midline. Supple and not tender, no meningeal signs CARDIOVASCULAR: Regular rate and rhythm, tachycardic. No murmurs, rubs or gallops heard RESPIRATORY: Decreased breath sounds at L base ABDOMEN: Mildly distended, bowel sounds hypoactive, diffuse tenderness, krishna on L, no guarding, no rebound. EXTREMITIES: No clubbing, cyanosis, or edema. No calf tenderness. NEUROLOGICAL: Grossly non-focal. PSYCHIATRIC: Normal affect, calm and cooperative. LINE: No evidence of infection Assessment and Plan - Plan Impression Severe pancreatitis Possible sepsis due to pancreatitis, better Leukocytosis due to pancreatitis, decreasing Has cough, and pleural effusion - ?sympathetic effusion - ?PNA Had dil CBD Recommendation Patient currently on Meropenem, continue for now Follow CBC Follow C/S Repeat lipase tomorrow Monitor progress
[2018-03-09] MEDS ORDERED: Bisacodyl 10 MG Supp RECTAL PRN (15:02)
--- NOTE | 2018-03-09 15:03 | P.PNGI ---
Subjective Interval history: Patient laying supine in bed States tolerating clear liquids well Reports decreasing abdominal discomfort Reports discomfort when bladder full due to IV fluids <Nichols,Judie - Last Filed: 03/09/18 14:59> Physical Exam Vital signs: Vital Signs 03/08/18 20:00 03/09/18 00:00 03/09/18 04:00 Temperature 98.4 F 97.9 F 98.1 F Pulse Rate 105 H 107 H 103 H Respiratory Rate 20 20 20 Blood Pressure 122/64 126/78 102/60 Pulse Oximetry 93 L 96 95 03/09/18 08:00 03/09/18 11:55 Temperature 98.2 F 98.6 F Pulse Rate 97 H 97 H Respiratory Rate 20 15 Blood Pressure 105/59 L 124/64 Pulse Oximetry 94 L 94 L Intake & Output 03/08/18 03/09/18 03/09/18 18:59 06:59 18:59 Intake Total 1100 / 1100 200 / 200 1100 / 1100 Output Total 500 / 500 Balance 1100 / 1100 200 / 200 600 / 600 Weight 50.1 kg Intake: IV 1100 / 1100 200 / 200 1100 / 1100 LR 1000 mL Inj 1,000 ML @ 75 1000 / 1000 1000 / 1000 mls/hr IV.CONT .[id number] [facility] Rx# :[id number] Merrem Inj 1,000 MG In NS Inj 100 / 100 200 / 200 100 / 100 100 ML @ 200 mls/hr IV.SIG Q8H [facility] Rx#:[id number] Output: Urine 500 / 500 Other: # Voids 1 2 # Incontinent Voids 1 # Urine Diapers 2 Date of Last Bowel Movement 03/04/18 03/04/18 03/04/18 - Constitutional no acute distress - Routine HEENT Exam Head: Present: normocephalic - Routine Respiratory Exam Present: CTA bilaterally Comments: Fine crackles lower lobe - Routine Cardiovascular Exam Present: RRR - Routine Abdominal Exam Present: soft, normoactive bowel sounds, tenderness. Absent: distended, guarding, firm Comments: Minimal tenderness on palpation during exam - Routine Extremities Exam Absent: edema - Routine Skin Exam Present: dry, warm - Routine Neurological Exam Present: alert <Nichols,Judie - Last Filed: 03/09/18 14:59> Vital signs: Vital Signs 03/09/18 11:55 03/09/18 16:00 03/09/18 20:00 Temperature 98.6 F 98.9 F 98.2 F Pulse Rate 97 H 95 H 105 H Respiratory Rate 15 20 20 Blood Pressure 124/64 117/66 115/68 Pulse Oximetry 94 L 96 94 L 03/10/18 00:00 03/10/18 04:00 03/10/18 06:50 Temperature 98.2 F 98.9 F Pulse Rate 88 93 H 92 H Respiratory Rate 18 18 Blood Pressure 105/57 L 94/53 L Pulse Oximetry 93 L 94 L 03/10/18 07:40 Temperature 98.6 F Pulse Rate 97 H Respiratory Rate 19 Blood Pressure 99/58 L Pulse Oximetry 94 L Intake & Output 03/09/18 03/10/18 03/10/18 18:59 06:59 18:59 Intake Total 1100 / 1100 1200 / 1200 Output Total 700 / 700 Balance 400 / 400 1200 / 1200 Weight 57.7 kg Intake: IV 1100 / 1100 1200 / 1200 LR 1000 mL Inj 1,000 ML @ 75 1000 / 1000 1000 / 1000 mls/hr IV.CONT .[id number] [facility] Rx# :[id number] Merrem Inj 1,000 MG In NS Inj 100 / 100 200 / 200 100 ML @ 200 mls/hr IV.SIG Q8H [facility] Rx#:[id number] Output: Urine 700 / 700 Other: # Voids 2 1 # Incontinent Voids 1 Date of Last Bowel Movement 03/04/18 03/04/18 03/04/18 <Matt Nicolas - Last Filed: 03/10/18 10:09> Results - Labs CBC & Chem 7: 03/09/18 05:33 03/09/18 05:33 Laboratory Results - last 24 hr 03/09/18 03/09/18 05:33 05:33 WBC 17.6 H RBC 3.19 L Hgb 10.5 L Hct 30.3 L MCV 94.9 MCH 32.9 MCHC 34.6 RDW 14.2 Plt Count 315 MPV 7.8 Neut % (Auto) 79.4 H Lymph % (Auto) 9.3 [place] % (Auto) 10.4 H Eos % (Auto) 0.7 Baso % (Auto) 0.2 Neut # (Auto) 14.0 H Lymph # (Auto) 1.6 [place] # (Auto) 1.8 H Eos # (Auto) 0.1 Baso # (Auto) 0.0 WBC Differential . Differential Comment Auto diff final Sodium 138 Potassium 3.1 L Chloride 101 Carbon Dioxide 30.1 Anion Gap 7 BUN 7 Creatinine 0.67 Estimated GFR Greater than 89 Random Glucose 92 Calcium 7.1 L* Calcium Adj for Albumin 8.8 Total Bilirubin 0.7 AST 41 H ALT 24 Alkaline Phosphatase 80 Total Protein 5.5 L Albumin 1.9 L Lipase 407 H Microbiology 03/07/18 10:15 Fluid - Pleural fluid Acid Fast Bacilli Smear - Final No acid fast bacilli seen 03/04/18 17:27 Blood - Peripheral Aerobic Blood Culture - Final No growth in 5 days 03/04/18 17:27 Blood - Peripheral Anaerobic Blood Culture - Final No growth in 5 days 03/04/18 17:20 Blood - Peripheral Aerobic Blood Culture - Final No growth in 5 days 03/04/18 17:20 Blood - Peripheral Anaerobic Blood Culture - Final No growth in 5 days 03/07/18 10:15 Fluid - Pleural fluid Gram Stain - Final 03/07/18 10:15 Fluid - Pleural fluid Body Fluid Culture - Preliminary No growth in 48 hours 03/06/18 13:45 Sputum - Expectorated Sputum Gram Stain - Final 03/06/18 13:45 Sputum - Expectorated Sputum Sputum Culture - Final Heavy growth normal respiratory jt <Judie Nichols - Last Filed: 03/09/18 14:59> - Labs CBC & Chem 7: 03/10/18 04:43 03/10/18 04:43 Laboratory Results - last 24 hr 03/10/18 03/10/18 04:43 04:43 WBC 18.8 H RBC 3.12 L Hgb 10.1 L Hct 29.7 L MCV 95.0 MCH 32.4 MCHC 34.1 RDW 14.0 Plt Count 383 MPV 7.7 Prelim Diff (Auto) Slide review pending Neut % (Auto) 75.0 H Lymph % (Auto) 11.0 [place] % (Auto) 12.1 H Eos % (Auto) 1.6 Baso % (Auto) 0.3 Neut # (Auto) 14.1 H Lymph # (Auto) 2.1 [place] # (Auto) 2.3 H Eos # (Auto) 0.3 Baso # (Auto) 0.0 WBC Differential Manual diff final Seg Neuts % (Manual) 82 H Band Neuts % (Manual) 7 H Lymphocytes % (Manual) 2 L Monocytes % (Manual) 9 H Abs Neuts (Manual) 16.7 H Differential Comment . Platelet Estimate Normal Platelet Morphology Normal RBC Morphology Normal Sodium 139 Potassium 3.0 L Chloride 101 Carbon Dioxide 30.6 Anion Gap 7 BUN 7 Creatinine 0.64 Estimated GFR Greater than 89 Random Glucose 86 Calcium 7.5 L Lipase 398 H Microbiology 03/07/18 10:15 Fluid - Pleural fluid Gram Stain - Final 03/07/18 10:15 Fluid - Pleural fluid Body Fluid Culture - Final No growth in 72 hours (aerobically and anaerobically ) 03/07/18 10:15 Fluid - Pleural fluid Acid Fast Bacilli Smear - Final No acid fast bacilli seen 03/04/18 17:27 Blood - Peripheral Aerobic Blood Culture - Final No growth in 5 days 03/04/18 17:27 Blood - Peripheral Anaerobic Blood Culture - Final No growth in 5 days 03/04/18 17:20 Blood - Peripheral Aerobic Blood Culture - Final No growth in 5 days 03/04/18 17:20 Blood - Peripheral Anaerobic Blood Culture - Final No growth in 5 days <Matt Nicolas - Last Filed: 03/10/18 10:09> Assessment and Plan (1) Acute pancreatitis Status: Acute Code(s): K85.90 - Acute pancreatitis without necrosis or infection, unspecified - Plan This patient is a 58-year-old female with past medical history significant for depression, osteoporosis, pancreatitis, and osteoarthritis. Patient also reports history of ureteral stricture and right-sided kidney failure. Upon consultation, patient reports that she has had 3 episodes of pancreatitis. She states her last episode was 9 years ago. Patient denies any use of EtOH. States that she quit drinking 1 year ago. Patient denies any diarrhea fever or chills. Patient endorses smoking tobacco 1 pack/day. She denies any use of illicit drugs and denies any known family history of gastrointestinal disorders. 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 Acute pancreatitis Patient reports 3 noted episodes of pancreatitis. Last being 9 years ago. Patient denies any use of EtOH. She states she quit 1 year ago. Does report now drinking occasional EtOH socially. 03/04/2018 CT abdomen and pelvis reveal the following- 1. Dilatation of the common bile duct measuring up to 1.3 cm with an 8 to 9 mm round soft tissue masslike structure which extends into the fluid-filled duodenum. 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 The gallbladder is unremarkable. 2. Fluid in the left upper abdomen surrounding portions of the body and tail the pancreas as well as portions of the spleen. The finding is nonspecific and the differential diagnosis includes pancreatitis. The left kidney appears unremarkable. 3. Small atrophic right kidney. WBC 17.9 hemoglobin 13.9 hematocrit 41.1 total bilirubin 0.5 AST 18 ALT 14 alk phos 92 lipase 28,791 03/05/2018 03/04/2018 MRCP revealed the following-- Dilated common bile duct and is a stricture that appears to be smooth involving the distal common bile duct at the level of the ampulla with possible slight invagination into the lumen of the duodenum. May consider further evaluation with direct visualization and endoscopy. WBC 21.3 RBC 3.9 hemoglobin 12.7 hematocrit 37.6 platelet count 331 lipase 4220 CA 199 21.6 Patient endorses decreasing abdominal discomfort. 03/06/2018 WBC 22.9 hemoglobin 13.3 hematocrit 38.7 Total bilirubin 0.8 AST 28 ALT 12 alk phos 66 amylase 439 lipase 748 trending down pro-calcitonin 0.16 Patient reports decreasing abdominal discomfort. Denies nausea vomiting 03/08/2018 Patient reporting decreased abdominal pain Denies any nausea vomiting Tolerating clear liquid well -WBC 17.3 improving, hemoglobin 11.2 hematocrit 33.3 -Total bilirubin 0.8 AST 27 ALT 15 alk phos 60 albumin 2.2 lipase 344 03/07/2018 EUS revealed the following findings: Gastritis Pancreatic pseudocyst/necrosis Mildly dilated pancreatic duct and mildly dilated common bile duct otherwise unremarkable 03/09/2018 Patient reports decreasing abdominal discomfort States abdominal discomfort when bladder fold during IV infusion of antibiotic Tolerating clear liquid diet well without any nausea or vomiting WBC 17.6 hemoglobin 10.5 hematocrit 33.3 platelet count 315 Total bilirubin 0.7 AST 41 ALT 24 alk phos 80 lipase 407 Plan -Clear liquid diet -Analgesics and antiemetics as per attending -Monitor labs -Continue to monitor patient closely -Patient agrees to follow-up with Dr[facility] for possible drainage of pseudocyst -Infectious disease following -IV hydration -Supportive care -Further recommendations to follow This patient has been seen by myself and Dr. Nicolas and this note is written on his behalf - Attending Attestation Dr. Nicolas <Judie Nichols - Last Filed: 03/09/18 14:59> (1) Acute pancreatitis Status: Acute Code(s): K85.90 - Acute pancreatitis without necrosis or infection, unspecified - Attending Attestation I have seen and examined the patient. I agree with the assessment and recommendations above. <Matt Nicolas - Last Filed: 03/10/18 10:09> <Judie Nichols - Last Filed: 03/09/18 14:59> (1) Acute pancreatitis Qualifiers: Pancreatitis type: other Acute pancreatitis complication: no infection or necrosis Qualified Code(s): K85.80 - Other acute pancreatitis without necrosis or infection <Matt Nicolas - Last Filed: 03/10/18 10:09> (1) Acute pancreatitis Qualifiers: Pancreatitis type: other Acute pancreatitis complication: no infection or necrosis Qualified Code(s): K85.80 - Other acute pancreatitis without necrosis or infection
[2018-03-09] MEDS: Senna/Docusate Sodium 8.6/50 MG Tablet PO SCH (20:48)
[2018-03-10] MEDS: Morphine Sulfate Inj 2 MG/ML Vial IV.PUSH PRN (02:41)
[2018-03-10 07:14] LABS: Baso % (Auto) 0.3 % (0.0-2.0); Eos # (Auto) 0.3 th/mm3 (0.0-0.4); Eos % (Auto) 1.6 % (0.0-4.0); Hematocrit 29.7 % (35.0-46.0); Hemoglobin 10.1 gm/dL (11.6-15.3); Lymph # (Auto) 2.1 th/mm3 (1.0-4.8); Mean Corpuscular HGB Conc 34.1 % (32.0-36.0); Mean Corpuscular Hemoglobin 32.4 pg (27.0-34.0); Mean Platelet Volume 7.7 fL (7.0-11.0); Mono # (Auto) 2.3 th/mm3 (0.0-0.9); Mono % (Auto) 12.1 % (0.0-8.0); Neut # (Auto) 14.1 th/mm3 (1.8-7.7); Platelet Count 383 th/mm3 (150-450); Red Blood Count 3.12 mil/mm3 (4.00-5.30); White Blood Count 18.8 th/mm3 (4.0-11.0)
[2018-03-10 07:39] LABS: Anion Gap 7 meq/L (5-15); Blood Urea Nitrogen 7 mg/dL (7-18); Calcium 7.5 mg/dL (8.5-10.1); Carbon Dioxide 30.6 meq/L (21.0-32.0); Chloride 101 meq/L (98-107); Glomerular Filtration Rate Greater Than 89 mL/min (>89); Glucose,Random 86 mg/dL (74-106); Lipase 398 U/L (73-393); Sodium 139 meq/L (136-145)
[2018-03-10] MEDS: Senna/Docusate Sodium 8.6/50 MG Tablet PO SCH ×2 (08:37→21:56)
[2018-03-10] MEDS ORDERED: Magnesium Sulfate Inj 2 GM in Sodium Chlor 0.9% Inj 96 ML IV.SIG ONE (08:44)
[2018-03-10 08:54] LABS: Lymphocytes 2 % (9-44); Monocytes 9 % (0-8); Platelet Estimate Normal (Normal); Platelet Morphology Normal (Normal)
[2018-03-10 08:55] LABS: RBC Morphology Normal (Normal)
--- NOTE | 2018-03-10 10:57 | P.PNIM ---
Subjective Interval history: Follow-up for acute pancreatitis, possible ampullary mass as well as left pleural effusion. Is seen and examined today. Reports left upper extremity swelling and pain. States that they have to move her IV multiple times since yesterday last night because it keeps failing. States minimal nausea, no vomiting tolerating her clear liquid diet. Shortness of breath is not worsening. Continues to be on 2 L nasal cannula. Denies chest pain, palpitations, headaches, dizziness. Denies fevers, chills. Physical Exam Vital signs: Vital Signs 03/09/18 11:55 03/09/18 16:00 03/09/18 20:00 Temperature 98.6 F 98.9 F 98.2 F Pulse Rate 97 H 95 H 105 H Respiratory Rate 15 20 20 Blood Pressure 124/64 117/66 115/68 Pulse Oximetry 94 L 96 94 L 03/10/18 00:00 03/10/18 04:00 03/10/18 06:50 Temperature 98.2 F 98.9 F Pulse Rate 88 93 H 92 H Respiratory Rate 18 18 Blood Pressure 105/57 L 94/53 L Pulse Oximetry 93 L 94 L 03/10/18 07:40 Temperature 98.6 F Pulse Rate 97 H Respiratory Rate 19 Blood Pressure 99/58 L Pulse Oximetry 94 L Intake & Output 03/09/18 03/10/18 03/10/18 18:59 06:59 18:59 Intake Total 1100 / 1100 1200 / 1200 Output Total 700 / 700 Balance 400 / 400 1200 / 1200 Weight 57.7 kg Intake: IV 1100 / 1100 1200 / 1200 LR 1000 mL Inj 1,000 ML @ 75 1000 / 1000 1000 / 1000 mls/hr IV.CONT .[id number] [facility] Rx# :[id number] Merrem Inj 1,000 MG In NS Inj 100 / 100 200 / 200 100 ML @ 200 mls/hr IV.SIG Q8H [facility] Rx#:[id number] Output: Urine 700 / 700 Other: # Voids 2 1 # Incontinent Voids 1 Date of Last Bowel Movement 03/04/18 03/04/18 03/04/18 Narrative: GENERAL: This is a well-developed patient, in no apparent distress. SKIN: Warm and dry HEENT: Normocephalic. Pupils equal round and reactive. Nose without bleeding. Airway patent. NECK: Trachea midline. CARDIOVASCULAR: Regular rate and rhythm without murmurs, gallops, or rubs. RESPIRATORY: Clear to auscultation. Breath sounds equal bilaterally. No wheezes , rales, or rhonchi. GASTROINTESTINAL: Abdomen soft. Bowel Sounds normoactive x4. Tender to palpate mid epigastric region towards the right side. MUSCULOSKELETAL: Extremities without clubbing, cyanosis, or edema. NEUROLOGICAL: Awake and alert. No focal neuro deficit. Moves all extremities. Normal speech. Results - Labs CBC & Chem 7: 03/10/18 04:43 03/10/18 04:43 Laboratory Results - last 24 hr 03/10/18 03/10/18 04:43 04:43 WBC 18.8 H RBC 3.12 L Hgb 10.1 L Hct 29.7 L MCV 95.0 MCH 32.4 MCHC 34.1 RDW 14.0 Plt Count 383 MPV 7.7 Prelim Diff (Auto) Slide review pending Neut % (Auto) 75.0 H Lymph % (Auto) 11.0 [place] % (Auto) 12.1 H Eos % (Auto) 1.6 Baso % (Auto) 0.3 Neut # (Auto) 14.1 H Lymph # (Auto) 2.1 [place] # (Auto) 2.3 H Eos # (Auto) 0.3 Baso # (Auto) 0.0 WBC Differential Manual diff final Seg Neuts % (Manual) 82 H Band Neuts % (Manual) 7 H Lymphocytes % (Manual) 2 L Monocytes % (Manual) 9 H Abs Neuts (Manual) 16.7 H Differential Comment . Platelet Estimate Normal Platelet Morphology Normal RBC Morphology Normal Sodium 139 Potassium 3.0 L Chloride 101 Carbon Dioxide 30.6 Anion Gap 7 BUN 7 Creatinine 0.64 Estimated GFR Greater than 89 Random Glucose 86 Calcium 7.5 L Lipase 398 H Microbiology 03/07/18 10:15 Fluid - Pleural fluid Gram Stain - Final 03/07/18 10:15 Fluid - Pleural fluid Body Fluid Culture - Final No growth in 72 hours (aerobically and anaerobically ) 03/07/18 10:15 Fluid - Pleural fluid Acid Fast Bacilli Smear - Final No acid fast bacilli seen 03/04/18 17:27 Blood - Peripheral Aerobic Blood Culture - Final No growth in 5 days 03/04/18 17:27 Blood - Peripheral Anaerobic Blood Culture - Final No growth in 5 days 03/04/18 17:20 Blood - Peripheral Aerobic Blood Culture - Final No growth in 5 days 03/04/18 17:20 Blood - Peripheral Anaerobic Blood Culture - Final No growth in 5 days Assessment and Plan - Assessment (1) Acute pancreatitis Code(s): K85.90 - Acute pancreatitis without necrosis or infection, unspecified Status: Acute - Plan patient is a 58 y/o F with a diagnosis of osteoarthritis, hx of right ureteral stricture which led to right sided kidney failure. She has an extensive tobacco smoking hx. She presents to the ED with complaints of abdominal pain for the past few days that worsened yesterday. She also began to have nausea and vomiting. She has a hx of pancreatitis several years ago however is unsure of what the cause was at that time. She denies any recent alcohol use. She denies any fevers or chills. Sepsis (tachycardic, leukocytosis, possible pancreatitis related infection) Acute pancreatitis Ct abd/pelv shows dilation of the cbd 1.3 cm with 9mm round mass that extends into the duodenum. Pancreas shows findings consistent with pancreatitis [place] [address] upon admission and currently 344. -Patient is on LR - will reduce to 50cc/hour. Monitor for fluid overload -GI is following. 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 Endoscopic ultrasound was completed on 03/07/2018 -shows pancreatic pseudocyst/necrosis. -Still on Clear liquid diet per GI, will speak with GI if they can advance diet. -Patient is on Meropenem. ID following. As per ID patient will not continue meropenem, pending advance diet and tolerance. Left sided pleural effusion Cough -WBC around 22--> 17-->18.8 -Sputum grew normal jt. Pleural fluid no growth to date -US guided left thoracentesis on 03/07/2018. -BC NGTD -O2 nasal cannula as needed, keep O2 sat greater than 92% Tobacco abuse -Patient advised to quit smoking -Duo nebs as needed Full code. Heparin SQ for DVT prophylaxis. Code Status: Full code Discussed Condition With: Patient, nursing, Dr. Vance Discharge Planning: Plan to DC home when cleared by GI. Will need walk test. (1) Acute pancreatitis Qualifiers: Pancreatitis type: other Acute pancreatitis complication: no infection or necrosis Qualified Code(s): K85.80 - Other acute pancreatitis without necrosis or infection
[2018-03-10] MEDS: Potassium Chlor 20 mEq Premix 20 MEQ/100 ML PIGGYBACK IV.SIG SCH ×2 (13:27→15:27)
--- NOTE | 2018-03-10 14:07 | US ---
EXAM DATE: 03/10/2018 1:52 PM EST AGE/SEX: 58 years / Female INDICATIONS: Left arm swelling. CLINICAL DATA: This is the patient's initial encounter. Patient reports that signs and symptoms have been present for 1 day and indicates a pain score of 10/10. MEDICAL/SURGICAL HISTORY: . Depression. Osteoporosis. Pancreatitis. None. COMPARISON: No prior exams available for comparison. FINDINGS: There are abnormal intraluminal echoes within the mid and distal cephalic vein. This vesse l demonstrates no compressibility and there is no significant blood flow documented indicating occlus catherine thrombus. The remaining veins of the left upper extremity including the internal jugular vein dem onstrate normal compressibility and blood flow. Other: None. CONCLUSION: 1. Occlusive thrombus within the mid to distal cephalic vein. 2. The remaining veins of the left upper extremity are patent. Electronically signed by: Vikram Andrew MD Board Certified Radiologist 03/10/2018 2:06 PM EST
--- NOTE | 2018-03-10 19:31 | P.PNGI ---
Subjective Interval history: Patient sitting up in bed Reports continued abdominal discomfort Denies any fever or chills Denies nausea or vomiting <Judie Nichols - Last Filed: 03/10/18 19:25> Physical Exam Vital signs: Vital Signs 03/09/18 20:00 03/10/18 00:00 03/10/18 04:00 Temperature 98.2 F 98.2 F 98.9 F Pulse Rate 105 H 88 93 H Respiratory Rate 20 18 18 Blood Pressure 115/68 105/57 L 94/53 L Pulse Oximetry 94 L 93 L 94 L 03/10/18 06:50 03/10/18 07:40 03/10/18 11:48 Temperature 98.6 F 98.9 F Pulse Rate 92 H 97 H 101 H Respiratory Rate 19 18 Blood Pressure 99/58 L 114/62 Pulse Oximetry 94 L 90 L 03/10/18 16:04 Temperature 98.5 F Pulse Rate 83 Respiratory Rate 18 Blood Pressure 109/57 L Pulse Oximetry 95 Intake & Output 03/10/18 03/10/18 03/11/18 06:59 18:59 06:59 Intake Total 1200 / 1200 1100 / 1100 Balance 1200 / 1200 1100 / 1100 Weight 57.7 kg Intake: IV 1200 / 1200 1100 / 1100 LR 1000 mL Inj 1,000 ML @ 50 1000 / 1000 700 / 700 mls/hr IV.CONT .Q20H [facility] Rx#: [id number] Magnesium Sulfate Inj 2 GM In 100 / 100 NS Inj 96 ML @ 50 mls/hr IV.SIG ONCE ONE Rx#:[id number] Merrem Inj 1,000 MG In NS Inj 200 / 200 100 / 100 100 ML @ 200 mls/hr IV.SIG Q8H [facility] Rx#:[id number] KCl 20 mEq Premix Inj 20 meq In 200 / 200 100 ml @ 50 mls/hr IV.SIG Q2H [facility] Rx#:[id number] Other: # Voids 1 Date of Last Bowel Movement 03/04/18 03/04/18 - Constitutional no acute distress, chronically ill appearing - Routine HEENT Exam Head: Present: normocephalic - Routine Respiratory Exam Present: CTA bilaterally. Absent: accessory muscle use, respiratory distress - Routine Cardiovascular Exam Present: RRR - Routine Abdominal Exam Present: soft, normoactive bowel sounds, tenderness. Absent: distended, guarding, firm - Routine Extremities Exam Absent: edema - Routine Skin Exam Present: dry, warm - Routine Neurological Exam Present: alert <[email or web address] - Last Filed: 03/10/18 19:25> Vital signs: Vital Signs 03/10/18 11:48 03/10/18 16:04 03/10/18 20:00 Temperature 98.9 F 98.5 F 97.8 F Pulse Rate 101 H 83 89 Respiratory Rate 18 18 18 Blood Pressure 114/62 109/57 L 116/66 Pulse Oximetry 90 L 95 90 L 03/11/18 01:40 03/11/18 05:35 03/11/18 07:56 Temperature 98.1 F 98.3 F 98.5 F Pulse Rate 101 H 96 H 94 H Respiratory Rate 18 18 18 Blood Pressure 137/76 133/66 122/65 Pulse Oximetry 92 L 86 L 99 Intake & Output 03/10/18 03/11/18 03/11/18 18:59 06:59 18:59 Intake Total 1100 / 1100 200 / 200 Balance 1100 / 1100 200 / 200 Weight 52.8 kg Intake: IV 1100 / 1100 200 / 200 LR 1000 mL Inj 1,000 ML @ 50 700 / 700 mls/hr IV.CONT .Q20H [facility] Rx#: [id number] Magnesium Sulfate Inj 2 GM In 100 / 100 NS Inj 96 ML @ 50 mls/hr IV.SIG ONCE ONE Rx#:[id number] Merrem Inj 1,000 MG In NS Inj 100 / 100 200 / 200 100 ML @ 200 mls/hr IV.SIG Q8H [facility] Rx#:[id number] KCl 20 mEq Premix Inj 20 meq In 200 / 200 100 ml @ 50 mls/hr IV.SIG Q2H [facility] Rx#:[id number] Other: # Voids 2 3 Date of Last Bowel Movement 03/04/18 <Matt Nicolas - Last Filed: 03/11/18 08:47> Results - Labs CBC & Chem 7: 03/10/18 04:43 03/10/18 04:43 Laboratory Results - last 24 hr 03/10/18 03/10/18 04:43 04:43 WBC 18.8 H RBC 3.12 L Hgb 10.1 L Hct 29.7 L MCV 95.0 MCH 32.4 MCHC 34.1 RDW 14.0 Plt Count 383 MPV 7.7 Prelim Diff (Auto) Slide review pending Neut % (Auto) 75.0 H Lymph % (Auto) 11.0 [place] % (Auto) 12.1 H Eos % (Auto) 1.6 Baso % (Auto) 0.3 Neut # (Auto) 14.1 H Lymph # (Auto) 2.1 [place] # (Auto) 2.3 H Eos # (Auto) 0.3 Baso # (Auto) 0.0 WBC Differential Manual diff final Seg Neuts % (Manual) 82 H Band Neuts % (Manual) 7 H Lymphocytes % (Manual) 2 L Monocytes % (Manual) 9 H Abs Neuts (Manual) 16.7 H Differential Comment . Platelet Estimate Normal Platelet Morphology Normal RBC Morphology Normal Sodium 139 Potassium 3.0 L Chloride 101 Carbon Dioxide 30.6 Anion Gap 7 BUN 7 Creatinine 0.64 Estimated GFR Greater than 89 Random Glucose 86 Calcium 7.5 L Lipase 398 H Microbiology 03/07/18 10:15 Fluid - Pleural fluid Gram Stain - Final 03/07/18 10:15 Fluid - Pleural fluid Body Fluid Culture - Final No growth in 72 hours (aerobically and anaerobically ) - Imaging Impressions Venous Doppler Study 03/10/18 00:00 CONCLUSION: 1. Occlusive thrombus within the mid to distal cephalic vein. 2. The remaining veins of the left upper extremity are patent. <Judie Nichols - Last Filed: 03/10/18 19:25> - Labs CBC & Chem 7: 03/11/18 04:13 03/10/18 04:43 Laboratory Results - last 24 hr 03/10/18 03/11/18 03/11/18 04:43 04:13 04:13 WBC 17.8 H RBC 3.33 L Hgb 10.7 L Hct 31.2 L MCV 93.6 MCH 32.1 MCHC 34.3 RDW 13.9 Plt Count 494 H MPV 7.6 Neut % (Auto) 75.0 H Lymph % (Auto) 11.7 [place] % (Auto) 11.3 H Eos % (Auto) 1.6 Baso % (Auto) 0.4 Neut # (Auto) 13.3 H Lymph # (Auto) 2.1 [place] # (Auto) 2.0 H Eos # (Auto) 0.3 Baso # (Auto) 0.1 WBC Differential Manual diff final . Seg Neuts % (Manual) 82 H Band Neuts % (Manual) 7 H Lymphocytes % (Manual) 2 L Monocytes % (Manual) 9 H Abs Neuts (Manual) 16.7 H Differential Comment Auto diff final Platelet Estimate Normal Platelet Morphology Normal RBC Morphology Normal Magnesium 2.4 Lipase 459 H Microbiology 03/07/18 10:15 Fluid - Pleural fluid Gram Stain - Final 03/07/18 10:15 Fluid - Pleural fluid Body Fluid Culture - Final No growth in 72 hours (aerobically and anaerobically ) - Imaging Impressions Venous Doppler Study 03/10/18 00:00 CONCLUSION: 1. Occlusive thrombus within the mid to distal cephalic vein. 2. The remaining veins of the left upper extremity are patent. <Matt Nicolas - Last Filed: 03/11/18 08:47> Assessment and Plan (1) Acute pancreatitis Status: Acute Code(s): K85.90 - Acute pancreatitis without necrosis or infection, unspecified - Plan This patient is a 58-year-old female with past medical history significant for depression, osteoporosis, pancreatitis, and osteoarthritis. Patient also reports history of ureteral stricture and right-sided kidney failure. Upon consultation, patient reports that she has had 3 episodes of pancreatitis. She states her last episode was 9 years ago. Patient denies any use of EtOH. States that she quit drinking 1 year ago. Patient denies any diarrhea fever or chills. Patient endorses smoking tobacco 1 pack/day. She denies any use of illicit drugs and denies any known family history of gastrointestinal disorders. 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 Acute pancreatitis Patient reports 3 noted episodes of pancreatitis. Last being 9 years ago. Patient denies any use of EtOH. She states she quit 1 year ago. Does report now drinking occasional EtOH socially. 03/04/2018 CT abdomen and pelvis reveal the following- 1. Dilatation of the common bile duct measuring up to 1.3 cm with an 8 to 9 mm round soft tissue masslike structure which extends into the fluid-filled duodenum. 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 The gallbladder is unremarkable. 2. Fluid in the left upper abdomen surrounding portions of the body and tail the pancreas as well as portions of the spleen. The finding is nonspecific and the differential diagnosis includes pancreatitis. The left kidney appears unremarkable. 3. Small atrophic right kidney. WBC 17.9 hemoglobin 13.9 hematocrit 41.1 total bilirubin 0.5 AST 18 ALT 14 alk phos 92 lipase 28,791 03/05/2018 03/04/2018 MRCP revealed the following-- Dilated common bile duct and is a stricture that appears to be smooth involving the distal common bile duct at the level of the ampulla with possible slight invagination into the lumen of the duodenum. May consider further evaluation with direct visualization and endoscopy. WBC 21.3 RBC 3.9 hemoglobin 12.7 hematocrit 37.6 platelet count 331 lipase 4220 CA 199 21.6 Patient endorses decreasing abdominal discomfort. 03/06/2018 WBC 22.9 hemoglobin 13.3 hematocrit 38.7 Total bilirubin 0.8 AST 28 ALT 12 alk phos 66 amylase 439 lipase 748 trending down pro-calcitonin 0.16 Patient reports decreasing abdominal discomfort. Denies nausea vomiting 03/08/2018 Patient reporting decreased abdominal pain Denies any nausea vomiting Tolerating clear liquid well -WBC 17.3 improving, hemoglobin 11.2 hematocrit 33.3 -Total bilirubin 0.8 AST 27 ALT 15 alk phos 60 albumin 2.2 lipase 344 03/07/2018 EUS revealed the following findings: Gastritis Pancreatic pseudocyst/necrosis Mildly dilated pancreatic duct and mildly dilated common bile duct otherwise unremarkable 03/09/2018 Patient reports decreasing abdominal discomfort States abdominal discomfort when bladder fold during IV infusion of antibiotic Tolerating clear liquid diet well without any nausea or vomiting WBC 17.6 hemoglobin 10.5 hematocrit 33.3 platelet count 315 Total bilirubin 0.7 AST 41 ALT 24 alk phos 80 lipase 407 03/10/2018 Patient reports continued abdominal discomfort Denies any nausea vomiting on clear liquid diet WBC 18.8 rising, hemoglobin 10.1 hematocrit 29.7 platelet count 383 Lipase 398 trending down Repeat EUS in a.m. as WBC 18.8 rising. Plan -Clear liquid diet -N.p.o. after midnight -Obtain consent for EUS -Analgesics and antiemetics as per attending -Monitor labs -Continue to monitor patient closely -EUS in a.m. -Infectious disease following -IV hydration -Supportive care -Further recommendations to follow This patient has been seen by myself and Dr. Nicolas and this note is written on his behalf - Attending Attestation Dr. Nicolas <Judie Nichols - Last Filed: 03/10/18 19:25> (1) Acute pancreatitis Status: Acute Code(s): K85.90 - Acute pancreatitis without necrosis or infection, unspecified - Attending Attestation The patient is seen and examined. I agree with the assessment and recommendations above. <Matt Nicolas - Last Filed: 03/11/18 08:47> <Judie Nichols - Last Filed: 03/10/18 19:25> (1) Acute pancreatitis Qualifiers: Pancreatitis type: other Acute pancreatitis complication: no infection or necrosis Qualified Code(s): K85.80 - Other acute pancreatitis without necrosis or infection <Matt Nicolas - Last Filed: 03/11/18 08:47> (1) Acute pancreatitis Qualifiers: Pancreatitis type: other Acute pancreatitis complication: no infection or necrosis Qualified Code(s): K85.80 - Other acute pancreatitis without necrosis or infection
[2018-03-11] MEDS ORDERED: Metoprolol Tartrate 25 MG Tablet PO ONE (04:47)
[2018-03-11] MEDS ORDERED: Chlorhexidine Gluconate 2% 1 Pack (2 Cloths) TOPICAL ONE (04:47)
[2018-03-11] MEDS ORDERED: Sodium Chlor 0.9% Inj 500 ML IV.SIG SCH (05:00)
[2018-03-11 05:04] LABS: Baso # (Auto) 0.1 th/mm3 (0.0-0.2); Baso % (Auto) 0.4 % (0.0-2.0); Eos # (Auto) 0.3 th/mm3 (0.0-0.4); Eos % (Auto) 1.6 % (0.0-4.0); Hematocrit 31.2 % (35.0-46.0); Hemoglobin 10.7 gm/dL (11.6-15.3); Lymph # (Auto) 2.1 th/mm3 (1.0-4.8); Lymph % (Auto) 11.7 % (9.0-44.0); Mean Corpuscular HGB Conc 34.3 % (32.0-36.0); Mean Corpuscular Hemoglobin 32.1 pg (27.0-34.0); Mean Corpuscular Volume 93.6 fL (80.0-100.0); Mean Platelet Volume 7.6 fL (7.0-11.0); Mono % (Auto) 11.3 % (0.0-8.0); Neut # (Auto) 13.3 th/mm3 (1.8-7.7); Platelet Count 494 th/mm3 (150-450); Red Blood Count 3.33 mil/mm3 (4.00-5.30); Red Cell Distribution Width 13.9 % (11.6-17.2); White Blood Count 17.8 th/mm3 (4.0-11.0)
[2018-03-11 05:32] LABS: Magnesium 2.4 mg/dL (1.5-2.5)
--- NOTE | 2018-03-11 09:07 | P.PNIM ---
Subjective Interval history: Follow-up for acute pancreatitis, possible ampullary mass as well as left pleural effusion. Patient seen and examined today. LUE pain improved, swelling improved. States increase SOB with exertion. Hx >30 years of smoking trying to quit on and off. Continues to have abdominal pain, diffuse. States that having difficulty with starting urination and feels like labor pain when she starts because of her bladder being full. Otherwise,denies chest pain, palpitations, headaches, dizziness. Denies fevers, chills, n/v/d. Physical Exam Vital signs: Vital Signs 03/10/18 11:48 03/10/18 16:04 03/10/18 20:00 Temperature 98.9 F 98.5 F 97.8 F Pulse Rate 101 H 83 89 Respiratory Rate 18 Blood Pressure 114/62 109/57 L 116/66 Pulse Oximetry 90 L 95 90 L 03/11/18 01:40 03/11/18 05:35 03/11/18 07:56 Temperature 98.1 F 98.3 F 98.5 F Pulse Rate 101 H 96 H 94 H Respiratory Rate 18 Blood Pressure 137/76 133/66 122/65 Pulse Oximetry 92 L 86 L 99 Intake & Output 03/10/18 03/11/18 03/11/18 18:59 06:59 18:59 Intake Total 1100 / 1100 200 / 200 Balance 1100 / 1100 200 / 200 Weight 52.8 kg Intake: IV 1100 / 1100 200 / 200 LR 1000 mL Inj 1,000 ML @ 50 700 / 700 mls/hr IV.CONT .Q20H [facility] Rx#: [id number] Magnesium Sulfate Inj 2 GM In 100 / 100 NS Inj 96 ML @ 50 mls/hr IV.SIG ONCE ONE Rx#:[id number] Merrem Inj 1,000 MG In NS Inj 100 / 100 200 / 200 100 ML @ 200 mls/hr IV.SIG Q8H [facility] Rx#:[id number] KCl 20 mEq Premix Inj 20 meq In 200 / 200 100 ml @ 50 mls/hr IV.SIG Q2H [facility] Rx#:[id number] Other: # Voids 2 3 Date of Last Bowel Movement 03/04/18 Narrative: GENERAL: This is a well-developed patient, in no apparent distress. SKIN: Warm and dry. HEENT: Normocephalic. Pupils equal round and reactive. Nose without bleeding. Airway patent. NECK: Trachea midline. CARDIOVASCULAR: Regular rate and rhythm without murmurs, gallops, or rubs. RESPIRATORY: Diminished bases left greater than the right. No wheezes, rales, or rhonchi. GASTROINTESTINAL: Abdomen soft. Bowel Sounds normoactive x4. Tender to palpate mid epigastric region towards the right side. MUSCULOSKELETAL: Extremities without clubbing, cyanosis. Minimal edema left upper extremity, no erythema noted NEUROLOGICAL: Awake and alert. No focal neuro deficit. Moves all extremities. Normal speech. Results - Labs CBC & Chem 7: 03/11/18 04:13 03/10/18 04:43 Laboratory Results - last 24 hr 03/11/18 03/11/18 04:13 04:13 WBC 17.8 H RBC 3.33 L Hgb 10.7 L Hct 31.2 L MCV 93.6 MCH 32.1 MCHC 34.3 RDW 13.9 Plt Count 494 H MPV 7.6 Neut % (Auto) 75.0 H Lymph % (Auto) 11.7 [place] % (Auto) 11.3 H Eos % (Auto) 1.6 Baso % (Auto) 0.4 Neut # (Auto) 13.3 H Lymph # (Auto) 2.1 [place] # (Auto) 2.0 H Eos # (Auto) 0.3 Baso # (Auto) 0.1 WBC Differential . Differential Comment Auto diff final Magnesium 2.4 Lipase 459 H Microbiology 03/07/18 10:15 Fluid - Pleural fluid Gram Stain - Final 03/07/18 10:15 Fluid - Pleural fluid Body Fluid Culture - Final No growth in 72 hours (aerobically and anaerobically ) - Imaging Impressions Venous Doppler Study 03/10/18 00:00 CONCLUSION: 1. Occlusive thrombus within the mid to distal cephalic vein. 2. The remaining veins of the left upper extremity are patent. Assessment and Plan - Assessment (1) Acute pancreatitis Code(s): K85.90 - Acute pancreatitis without necrosis or infection, unspecified Status: Acute - Plan patient is a 58 y/o F with a diagnosis of osteoarthritis, hx of right ureteral stricture which led to right sided kidney failure. She has an extensive tobacco smoking hx. She presents to the ED with complaints of abdominal pain for the past few days that worsened yesterday. She also began to have nausea and vomiting. She has a hx of pancreatitis several years ago however is unsure of what the cause was at that time. She denies any recent alcohol use. She denies any fevers or chills. Sepsis (tachycardic, leukocytosis, possible pancreatitis related infection) Acute pancreatitis Ct abd/pelv shows dilation of the cbd 1.3 cm with 9mm round mass that extends into the duodenum. Pancreas shows findings consistent with pancreatitis [place] [id number] upon admission and currently 344. -Patient is on LR - will reduce to 50cc/hour. Monitor for fluid overload -GI is following. 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 Endoscopic ultrasound was completed on 03/07/2018 -shows pancreatic pseudocyst/necrosis. -Still on Clear liquid diet per GI, will speak with GI if they can advance diet. -Patient is on Meropenem. ID following. As per ID patient will not continue meropenem, pending advance diet and tolerance. Hx Smoking, >30 years, Possible underlying COPD Left sided pleural effusion Cough -WBC around 22--> 17-->18.8 -Sputum grew normal jt. Pleural fluid no growth to date -US guided left thoracentesis on 03/07/2018, 700 mL fluid removal -BC NGTD -O2 nasal cannula as needed, keep O2 sat greater than 92% -Duo nebs, Symbicort -Increased shortness of breath reported today. We will repeat chest x-ray vs repeat US chest for possible thoracentesis Tobacco abuse -Patient advised to quit smoking. Approximately 15 minutes was spent counseling the patient is cessation techniques. Understands continuing to smoke could lead to stroke and , worsening of COPD. Benefits of stopping also presented to the patient. Patient verbalized desire to "give it a try" regarding smoking cessation and its benefits. -Nicotine patch recommended -Duo nebs as needed/ Scheduled Left upper extremity edema -Venous Doppler study showed occlusive thrombus within the mid to distal cephalic vein. The remaining veins of the left upper extremity are patent -Cephalic vein thrombus is superficial and possibly caused by peripherally inserted catheter. Catheter has been removed. We will not start patient on prolonged anti-coagulation. Currently on heparin subcu for DVT prophylaxis. Elevate upper extremity, warm compresses. -Monitor for now Full code. Heparin SQ for DVT prophylaxis. Discussed Condition With: Patient, nursing Discharge Planning: Plan to DC home when cleared by GI. Will need walk test. Plan for EUS today (1) Acute pancreatitis Qualifiers: Pancreatitis type: other Acute pancreatitis complication: no infection or necrosis Qualified Code(s): K85.80 - Other acute pancreatitis without necrosis or infection
[2018-03-11] MEDS: Morphine Sulfate Inj 2 MG/ML Vial IV.PUSH PRN ×3 (09:13→23:33)
[2018-03-11] MEDS: Senna/Docusate Sodium 8.6/50 MG Tablet PO SCH ×2 (09:14→21:46)
[2018-03-11] MEDS ORDERED: Potassium Chlor 20 mEq Premix 20 MEQ/100 ML PIGGYBACK IV.SIG ONE (10:00)
[2018-03-11 10:39] LABS: Albumin 2.1 g/dL (3.4-5.0); Anion Gap 7 meq/L (5-15); Aspartate Aminotransferase 35 U/L (15-37); Blood Urea Nitrogen 7 mg/dL (7-18); Calcium 7.3 mg/dL (8.5-10.1); Carbon Dioxide 31.2 meq/L (21.0-32.0); Chloride 101 meq/L (98-107); Glomerular Filtration Rate Greater Than 89 mL/min (>89); Glucose,Random 80 mg/dL (74-106); Potassium 3.4 meq/L (3.5-5.1); Sodium 139 meq/L (136-145)
[2018-03-11 10:43] LABS: Alanine Aminotransferase 29 U/L (10-53); Alkaline Phosphatase 74 U/L (45-117); Total Protein 5.4 g/dL (6.4-8.2)
[2018-03-11] MEDS: Budesonide-Formoterol 160/4.5 MCG 6 GM Inhaler INH SCH ×2 (10:47→21:47)
--- NOTE | 2018-03-11 15:39 | P.PCN ---
Date of procedure: 03/11/18 Pre-op diagnosis: Pancreatic pseudocyst with leukocytosis rule out infection Procedure: PROCEDURE PERFORMED EUS with FNA PROCEDURE: The procedure, risks and benefits were discussed with Patient/POA and informed consent was obtained. Anesthesia sedated Patient with Diprivan. Patient was placed in the left lateral decubitus position. Endoscopic ultrasound: The Pentax videoscope was introduced through the oropharynx and advanced to the stomach. FINDINGS: There was a large collection of fluid noted at the tail end of the pancreas with some noted debris using a 19-gauge needle we were able to obtain about 60 cc of bilious type fluid that looks clear otherwise the likelihood that this is infected is low this will be sent for analysis otherwise pancreatic parenchyma actually appeared unremarkable and homogeneous and isoechoic with a normal pancreatic duct ESTIMATED BLOOD LOSS: None SPECIMENS REMOVED: Fluid aspirate COMPLICATIONS: None IMPRESSION: Pancreatic pseudocyst versus other PLAN: Await lab results Anesthesia: NICOLE Surgeon: Yaya Munoz Condition: stable Disposition: floor
--- NOTE | 2018-03-11 19:11 | XR ---
EXAM DATE: 03/11/2018 7:02 PM EST AGE/SEX: 58 years / Female INDICATIONS: . Shortness of breath, chest congestion. CLINICAL DATA: This is the patient's initial encounter. Patient reports that signs and symptoms have been present for 1 week and indicates a pain score of 0/10. MEDICAL/SURGICAL HISTORY: . Pancreatitis. Osteoporosis. None. COMPARISON: [facility] – [place], CHEST EXPIRATION ONLY, 03/07/2018. . FINDINGS: Progression of small bilateral pleural effusions with associated airspace disease at the lung bases. Cardiomediastinal contours are within normal limits. Bony thorax is intact. CONCLUSION: 1. Worsening small bilateral pleural effusions with associated airspace disease at the lung bases. Electronically signed by: Brigido Silver MD Board Certified Radiologist 03/11/2018 7:10 PM T
[2018-03-12] MEDS: Morphine Sulfate Inj 2 MG/ML Vial IV.PUSH PRN ×5 (03:56→22:07)
[2018-03-12 06:14] LABS: Hematocrit 29.7 % (35.0-46.0); Hemoglobin 10.2 gm/dL (11.6-15.3); Mean Corpuscular HGB Conc 34.2 % (32.0-36.0); Mean Corpuscular Hemoglobin 32.5 pg (27.0-34.0); Mean Corpuscular Volume 94.9 fL (80.0-100.0); Mean Platelet Volume 7.1 fL (7.0-11.0); Platelet Count 636 th/mm3 (150-450); Red Blood Count 3.13 mil/mm3 (4.00-5.30); Red Cell Distribution Width 14.5 % (11.6-17.2); White Blood Count 13.7 th/mm3 (4.0-11.0)
[2018-03-12 06:42] LABS: Albumin 2.4 g/dL (3.4-5.0); Anion Gap 8 meq/L (5-15); Aspartate Aminotransferase 31 U/L (15-37); Blood Urea Nitrogen 7 mg/dL (7-18); Calcium 7.7 mg/dL (8.5-10.1); Carbon Dioxide 31.5 meq/L (21.0-32.0); Chloride 100 meq/L (98-107); Glomerular Filtration Rate Greater Than 89 mL/min (>89); Glucose,Random 71 mg/dL (74-106); Lipase 309 U/L (73-393); Potassium 3.5 meq/L (3.5-5.1); Sodium 139 meq/L (136-145)
[2018-03-12 06:43] LABS: Alanine Aminotransferase 26 U/L (10-53)
[2018-03-12 06:46] LABS: Alkaline Phosphatase 76 U/L (45-117); Total Protein 5.8 g/dL (6.4-8.2)
[2018-03-12] MEDS: Senna/Docusate Sodium 8.6/50 MG Tablet PO SCH ×2 (08:10→22:06)
[2018-03-12] MEDS: Budesonide-Formoterol 160/4.5 MCG 6 GM Inhaler INH SCH ×2 (08:12→22:06)
--- NOTE | 2018-03-12 09:27 | P.PNIM ---
Subjective Interval history: Follow-up for acute pancreatitis, pleural effusion. Patient seen and examined today. Reports continued abdominal pain. Denies any nausea vomiting. States increasing shortness of breath especially with exertion. States that oxygen is helping her out. Discussed with patient bilateral pleural effusions on chest x- ray has been noted. Will discontinue IV fluids for now. We will give her Lasix. Possibly repeat another chest x-ray. Verbalized understanding. Denies fevers, chills,, diarrhea. Denies chest pain, palpitations, headaches, dizziness. Physical Exam Vital signs: Vital Signs 03/11/18 11:21 03/11/18 12:26 03/11/18 15:26 Temperature 98.1 F 98.7 F Pulse Rate 95 H 93 H 98 H Respiratory Rate 15 20 22 Blood Pressure 122/56 L 122/67 Pulse Oximetry 93 L 94 L 95 03/11/18 15:30 03/11/18 15:45 03/11/18 16:00 Temperature 98.2 F Pulse Rate 99 H 101 H 97 H Respiratory Rate 24 22 15 Blood Pressure 119/69 106/62 114/68 Pulse Oximetry 95 97 93 L 03/11/18 19:36 03/11/18 20:00 03/12/18 00:00 Temperature 98.1 F 97.9 F Pulse Rate 91 H 98 H 92 H Respiratory Rate 18 20 20 Blood Pressure 117/63 122/65 Pulse Oximetry 92 L 93 L 91 L 03/12/18 04:00 03/12/18 07:38 03/12/18 08:04 Temperature 97.9 F 98.0 F Pulse Rate 92 H 83 92 H Respiratory Rate 20 14 18 Blood Pressure 122/65 132/67 Pulse Oximetry 91 L 91 L 90 L Intake & Output 03/11/18 03/12/18 03/12/18 18:59 06:59 18:59 Intake Total 1225 / 1225 1200 / 1200 Output Total 600 / 600 3 / 3 Balance 625 / 625 1197 / 1197 Weight 53.1 kg Intake: IV 25 / 25 1200 / 1200 LR 1000 mL Inj 1,000 ML @ 50 1000 / 1000 mls/hr IV.CONT .Q20H MARIANNE Rx#: [id number] Merrem Inj 1,000 MG In NS Inj 200 / 200 100 ML @ 200 mls/hr IV.SIG Q8H MARIANNE Rx#:[id number] KCl 20 mEq Premix Inj 20 meq In 0 / 0 100 ml @ 50 mls/hr IV.SIG ONCE ONE Rx#:[id number] Oral 500 / 500 Anesthesia Amount 700 / 700 Output: Urine 600 / 600 Other: # Incontinent Voids 1 Date of Last Bowel Movement 03/04/18 03/04/18 03/04/18 Narrative: GENERAL: This is a well-developed patient, in no apparent distress. SKIN: Warm and dry. CARDIOVASCULAR: Regular rate and rhythm without murmurs, gallops, or rubs. RESPIRATORY: Diminished bases. No wheezes, rales, or rhonchi. GASTROINTESTINAL: Abdomen soft. Bowel Sounds normoactive x4. Tender to palpation in mid epigastric area MUSCULOSKELETAL: Extremities without clubbing, cyanosis. Minimal edema left upper extremity, no erythema noted NEUROLOGICAL: Awake and alert. No focal neuro deficit. Moves all extremities. Normal speech. Results - Labs CBC & Chem 7: 03/12/18 04:18 03/12/18 04:17 Laboratory Results - last 24 hr 03/11/18 03/11/18 03/11/18 04:13 08:49 15:10 WBC RBC Hgb Hct MCV MCH MCHC RDW Plt Count MPV Sodium 139 Potassium 3.4 L Chloride 101 Carbon Dioxide 31.2 Anion Gap 7 BUN 7 Creatinine 0.65 Estimated GFR Greater than 89 Random Glucose 80 Lactic Acid Calcium 7.3 L* Calcium Adj for Albumin 8.8 Total Bilirubin 0.4 AST 35 ALT 29 Alkaline Phosphatase 74 Total Protein 5.4 L Albumin 2.1 L Lipase Procalcitonin 0.15 H Misc Test Result 03/11/18 03/12/18 03/12/18 19:44 04:17 04:18 WBC 13.7 H RBC 3.13 L Hgb 10.2 L Hct 29.7 L MCV 94.9 MCH 32.5 MCHC 34.2 RDW 14.5 Plt Count 636 H MPV 7.1 Sodium 139 Potassium 3.5 Chloride 100 Carbon Dioxide 31.5 Anion Gap 8 BUN 7 Creatinine 0.67 Estimated GFR Greater than 89 Random Glucose 71 L Lactic Acid 1.0 Calcium 7.7 L Calcium Adj for Albumin Total Bilirubin 0.4 AST 31 ALT 26 Alkaline Phosphatase 76 Total Protein 5.8 L Albumin 2.4 L Lipase 309 Procalcitonin Misc Test Result - Imaging Impressions Chest X-Ray 03/11/18 00:00 CONCLUSION: 1. Worsening small bilateral pleural effusions with associated airspace disease at the lung bases. Assessment and Plan - Assessment (1) Acute pancreatitis Code(s): K85.90 - Acute pancreatitis without necrosis or infection, unspecified Status: Acute - Plan patient is a 58 y/o F with a diagnosis of osteoarthritis, hx of right ureteral stricture which led to right sided kidney failure. She has an extensive tobacco smoking hx. She presents to the ED with complaints of abdominal pain for the past few days that worsened yesterday. She also began to have nausea and vomiting. She has a hx of pancreatitis several years ago however is unsure of what the cause was at that time. She denies any recent alcohol use. She denies any fevers or chills. Sepsis (tachycardic, leukocytosis, possible pancreatitis related infection) Acute pancreatitis Ct abd/pelv shows dilation of the cbd 1.3 cm with 9mm round mass that extends into the duodenum. Pancreas shows findings consistent with pancreatitis [place] [id number] upon admission and currently 344. -GI is following. 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 Endoscopic ultrasound was completed on 03/07/2018 -shows pancreatic pseudocyst/necrosis. -Patient is on Meropenem. ID following. As per ID patient will not continue meropenem, pending advance diet and tolerance. -EUS done by Dr. Munoz, There was a large collection of fluid noted at the tail end of the pancreas with some noted debris using a 19-gauge needle we were able to obtain about 60 cc of bilious type fluid that looks clear otherwise the likelihood that this is infected is low this will be sent for analysis otherwise pancreatic parenchyma actually appeared unremarkable and homogeneous and isoechoic with a normal pancreatic duct -Continues to have midepigastric pain. [place] given for pain. [id number] Prescription Drug Monitoring Database has been queried and verified prior to prescribing the controlled substance. [facility] [place] [facility] -On clear liquid diet tolerating well. Will ask GI to possibly advance diet. Hx Smoking, >30 years, Possible underlying COPD Left sided pleural effusion Cough -WBC around 22--> 17-->18.8 -Sputum grew normal jt. Pleural fluid no growth to date -US guided left thoracentesis on 03/07/2018, 700 mL fluid removal -BC NGTD -O2 nasal cannula as needed, keep O2 sat greater than 92% -Duo nebs, Symbicort -Continue to have shortness of breath. -Repeat chest x-ray with bilateral pleural effusion. Will DC IV fluids. Lasix. -We will continue to diurese, walk test tomorrow. Tobacco abuse -Patient advised to quit smoking. Approximately 15 minutes was spent counseling the patient is cessation techniques. Understands continuing to smoke could lead to stroke and , worsening of COPD. Benefits of stopping also presented to the patient. Patient verbalized desire to "give it a try" regarding smoking cessation and its benefits. -Nicotine patch recommended -Duo nebs as needed/ Scheduled Left upper extremity edema -Venous Doppler study showed occlusive thrombus within the mid to distal cephalic vein. The remaining veins of the left upper extremity are patent -Cephalic vein thrombus is superficial and possibly caused by peripherally inserted catheter. Catheter has been removed. We will not start patient on prolonged anti-coagulation. Currently on heparin subcu for DVT prophylaxis. Elevate upper extremity, warm compresses. -Monitor for now Full code. Lovenox for DVT prophylaxis. Discussed Condition With: Patient, nursing, Dr. Vance Discharge Planning: Plan to DC home when cleared by GI. Will need walk test. Plan to DC jose if improved. (1) Acute pancreatitis Qualifiers: Pancreatitis type: other Acute pancreatitis complication: no infection or necrosis Qualified Code(s): K85.80 - Other acute pancreatitis without necrosis or infection
[2018-03-12] MEDS: Enoxaparin Inj 30 MG/0.3 ML Syringe SQ SCH (10:48)
--- NOTE | 2018-03-12 14:02 | P.PNGI ---
Subjective Interval history: Pt is resting in bed, states she had rough night last night. Denies N/V <Miguel Robertson - Last Filed: 03/12/18 13:55> Physical Exam Vital signs: Vital Signs 03/11/18 15:26 03/11/18 15:30 03/11/18 15:45 Temperature 98.7 F Pulse Rate 98 H 99 H 101 H Respiratory Rate 22 24 22 Blood Pressure 122/67 119/69 106/62 Pulse Oximetry 95 95 97 03/11/18 16:00 03/11/18 19:36 03/11/18 20:00 Temperature 98.2 F 98.1 F Pulse Rate 97 H 91 H 98 H Respiratory Rate 15 18 20 Blood Pressure 114/68 117/63 Pulse Oximetry 93 L 92 L 93 L 03/12/18 00:00 03/12/18 04:00 03/12/18 07:38 Temperature 97.9 F 97.9 F 98.0 F Pulse Rate 92 H 92 H 83 Respiratory Rate 20 20 14 Blood Pressure 122/65 122/65 132/67 Pulse Oximetry 91 L 91 L 91 L 03/12/18 08:04 03/12/18 12:01 Temperature Pulse Rate 92 H 88 Respiratory Rate 18 18 Blood Pressure Pulse Oximetry 90 L 93 L Intake & Output 03/11/18 03/12/18 03/12/18 18:59 06:59 18:59 Intake Total 1225 / 1225 1200 / 1200 Output Total 600 / 600 3 / 3 Balance 625 / 625 1197 / 1197 Weight 53.1 kg Intake: IV 1200 / 1200 LR 1000 mL Inj 1,000 ML @ 50 1000 / 1000 mls/hr IV.CONT .Q20H MARIANNE Rx#: [id number] Merrem Inj 1,000 MG In NS Inj 200 / 200 100 ML @ 200 mls/hr IV.SIG Q8H MARIANNE Rx#:[id number] KCl 20 mEq Premix Inj 20 meq In / 25 0 / 0 100 ml @ 50 mls/hr IV.SIG ONCE ONE Rx#:[id number] Oral 500 / 500 Anesthesia Amount 700 / 700 Output: Urine 600 / 600 3 / 3 Other: # Incontinent Voids 1 Date of Last Bowel Movement 03/04/18 03/04/18 03/04/18 Narrative: GENERAL: This is a well-developed patient, in no apparent distress. SKIN: Warm and dry. CARDIOVASCULAR: Regular rate and rhythm without murmurs, gallops, or rubs. RESPIRATORY: Diminished bases left greater than the right. No wheezes, rales, or rhonchi. GASTROINTESTINAL: Abdomen soft. Bowel Sounds normoactive x4. Tender to palpation in epigastric area MUSCULOSKELETAL: Extremities without clubbing, cyanosis. Minimal edema left upper extremity, no erythema noted NEUROLOGICAL: Awake and alert. No focal neuro deficit. Moves all extremities. Normal speech. <Miguel Robertson - Last Filed: 03/12/18 13:55> Vital signs: Vital Signs 03/11/18 19:36 03/11/18 20:00 03/12/18 00:00 Temperature 98.1 F 97.9 F Pulse Rate 91 H 98 H 92 H Respiratory Rate 18 20 20 Blood Pressure 117/63 122/65 Pulse Oximetry 92 L 93 L 91 L 03/12/18 04:00 03/12/18 07:38 03/12/18 08:04 Temperature 97.9 F 98.0 F Pulse Rate 92 H 83 92 H Respiratory Rate 20 14 18 Blood Pressure 122/65 132/67 Pulse Oximetry 91 L 91 L 90 L 03/12/18 12:01 03/12/18 13:54 Temperature 98.2 F Pulse Rate 88 91 H Respiratory Rate 18 16 Blood Pressure 112/59 L Pulse Oximetry 93 L 92 L Intake & Output 03/11/18 03/12/18 03/12/18 18:59 06:59 18:59 Intake Total 1225 / 1225 1200 / 1200 100 / 100 Output Total 600 / 600 3 / 3 Balance 625 / 625 1197 / 1197 100 / 100 Weight 53.1 kg Intake: IV 25 / 25 1200 / 1200 100 / 100 LR 1000 mL Inj 1,000 ML @ 50 1000 / 1000 mls/hr IV.CONT .Q20H MARIANNE Rx#: [id number] Merrem Inj 1,000 MG In NS Inj 200 / 200 100 / 100 100 ML @ 200 mls/hr IV.SIG Q8H MARIANNE Rx#:[id number] KCl 20 mEq Premix Inj 20 meq In 25 / 25 0 / 0 100 ml @ 50 mls/hr IV.SIG ONCE ONE Rx#:[id number] Oral 500 / 500 Anesthesia Amount 700 / 700 Output: Urine 600 / 600 3 / 3 Other: # Incontinent Voids 1 Date of Last Bowel Movement 03/04/18 03/04/18 03/04/18 <Matt Nicolas - Last Filed: 03/12/18 16:03> Results - Labs CBC & Chem 7: 03/12/18 04:18 03/12/18 04:17 Laboratory Results - last 24 hr 03/11/18 03/11/18 03/12/18 15:10 19:44 04:17 WBC RBC Hgb Hct MCV MCH MCHC RDW Plt Count MPV Sodium 139 Potassium 3.5 Chloride 100 Carbon Dioxide 31.5 Anion Gap 8 BUN 7 Creatinine 0.67 Estimated GFR Greater than 89 Random Glucose 71 L Lactic Acid 1.0 Calcium 7.7 L Total Bilirubin 0.4 AST 31 ALT 26 Alkaline Phosphatase 76 Total Protein 5.8 L Albumin 2.4 L Lipase 309 Misc Test Result 03/12/18 04:18 WBC 13.7 H RBC 3.13 L Hgb 10.2 L Hct 29.7 L MCV 94.9 MCH 32.5 MCHC 34.2 RDW 14.5 Plt Count 636 H MPV 7.1 Sodium Potassium Chloride Carbon Dioxide Anion Gap BUN Creatinine Estimated GFR Random Glucose Lactic Acid Calcium Total Bilirubin AST ALT Alkaline Phosphatase Total Protein Albumin Lipase Misc Test Result Microbiology 03/11/18 15:10 Fluid - Pancreatic Fluid Gram Stain - Final 03/11/18 15:10 Fluid - Pancreatic Fluid Wound Culture - Preliminary No growth in 24 hours - Imaging Impressions Chest X-Ray 03/11/18 00:00 CONCLUSION: 1. Worsening small bilateral pleural effusions with associated airspace disease at the lung bases. <Miguel Robertson - Last Filed: 03/12/18 13:55> - Labs CBC & Chem 7: 03/12/18 04:18 03/12/18 04:17 Laboratory Results - last 24 hr 03/11/18 03/11/18 03/12/18 15:10 19:44 04:17 WBC RBC Hgb Hct MCV MCH MCHC RDW Plt Count MPV Sodium 139 Potassium 3.5 Chloride 100 Carbon Dioxide 31.5 Anion Gap 8 BUN 7 Creatinine 0.67 Estimated GFR Greater than 89 Random Glucose 71 L Lactic Acid 1.0 Calcium 7.7 L Total Bilirubin 0.4 AST 31 ALT 26 Alkaline Phosphatase 76 Total Protein 5.8 L Albumin 2.4 L Lipase 309 Misc Test Result 03/12/18 04:18 WBC 13.7 H RBC 3.13 L Hgb 10.2 L Hct 29.7 L MCV 94.9 MCH 32.5 MCHC 34.2 RDW 14.5 Plt Count 636 H MPV 7.1 Sodium Potassium Chloride Carbon Dioxide Anion Gap BUN Creatinine Estimated GFR Random Glucose Lactic Acid Calcium Total Bilirubin AST ALT Alkaline Phosphatase Total Protein Albumin Lipase Misc Test Result Microbiology 03/11/18 15:10 Fluid - Pancreatic Fluid Gram Stain - Final 03/11/18 15:10 Fluid - Pancreatic Fluid Wound Culture - Preliminary No growth in 24 hours - Imaging Impressions Chest X-Ray 03/11/18 00:00 CONCLUSION: 1. Worsening small bilateral pleural effusions with associated airspace disease at the lung bases. <Matt Nicolas - Last Filed: 03/12/18 16:03> Assessment and Plan (1) Acute pancreatitis Status: Acute Code(s): K85.90 - Acute pancreatitis without necrosis or infection, unspecified - Plan This patient is a 58-year-old female with past medical history significant for depression, osteoporosis, pancreatitis, and osteoarthritis. Patient also reports history of ureteral stricture and right-sided kidney failure. Upon consultation, patient reports that she has had 3 episodes of pancreatitis. She states her last episode was 9 years ago. Patient denies any use of EtOH. States that she quit drinking 1 year ago. Patient denies any diarrhea fever or chills. Patient endorses smoking tobacco 1 pack/day. She denies any use of illicit drugs and denies any known family history of gastrointestinal disorders. 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 Acute pancreatitis Patient reports 3 noted episodes of pancreatitis. Last being 9 years ago. Patient denies any use of EtOH. She states she quit 1 year ago. Does report now drinking occasional EtOH socially. 03/04/2018 CT abdomen and pelvis reveal the following- 1. Dilatation of the common bile duct measuring up to 1.3 cm with an 8 to 9 mm round soft tissue masslike structure which extends into the fluid-filled duodenum. 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 The gallbladder is unremarkable. 2. Fluid in the left upper abdomen surrounding portions of the body and tail the pancreas as well as portions of the spleen. The finding is nonspecific and the differential diagnosis includes pancreatitis. The left kidney appears unremarkable. 3. Small atrophic right kidney. WBC 17.9 hemoglobin 13.9 hematocrit 41.1 total bilirubin 0.5 AST 18 ALT 14 alk phos 92 lipase 28,791 03/05/2018 03/04/2018 MRCP revealed the following-- Dilated common bile duct and is a stricture that appears to be smooth involving the distal common bile duct at the level of the ampulla with possible slight invagination into the lumen of the duodenum. May consider further evaluation with direct visualization and endoscopy. WBC 21.3 RBC 3.9 hemoglobin 12.7 hematocrit 37.6 platelet count 331 lipase 4220 CA 199 21.6 Patient endorses decreasing abdominal discomfort. 03/06/2018 WBC 22.9 hemoglobin 13.3 hematocrit 38.7 Total bilirubin 0.8 AST 28 ALT 12 alk phos 66 amylase 439 lipase 748 trending down pro-calcitonin 0.16 Patient reports decreasing abdominal discomfort. Denies nausea vomiting 03/08/2018 Patient reporting decreased abdominal pain Denies any nausea vomiting Tolerating clear liquid well -WBC 17.3 improving, hemoglobin 11.2 hematocrit 33.3 -Total bilirubin 0.8 AST 27 ALT 15 alk phos 60 albumin 2.2 lipase 344 03/07/2018 EUS revealed the following findings: Gastritis Pancreatic pseudocyst/necrosis Mildly dilated pancreatic duct and mildly dilated common bile duct otherwise unremarkable 03/09/2018 Patient reports decreasing abdominal discomfort States abdominal discomfort when bladder fold during IV infusion of antibiotic Tolerating clear liquid diet well without any nausea or vomiting WBC 17.6 hemoglobin 10.5 hematocrit 33.3 platelet count 315 Total bilirubin 0.7 AST 41 ALT 24 alk phos 80 lipase 407 03/10/2018 Patient reports continued abdominal discomfort Denies any nausea vomiting on clear liquid diet WBC 18.8 rising, hemoglobin 10.1 hematocrit 29.7 platelet count 383 Lipase 398 trending down Repeat EUS in a.m. as WBC 18.8 rising. 03/12/18 Pancreatic pseudocyst s/p EUS on 03/11/18 There was a large collection of fluid noted at the tail end of the pancreas with some noted debris using a 19-gauge needle we were able to obtain about 60 cc of bilious type fluid that looks clear otherwise the likelihood that this is infected is low this will be sent for analysis otherwise pancreatic parenchyma actually appeared unremarkable and homogeneous and isoechoic with a normal pancreatic duct Lipase normalized, wbc trending down Plan - Full liquid diet, can advance as tolerated - Await fluid analysis - Ok for pt to go home in the am, if continue to tolerate diet - Gi will sign off - f/u with Gi upon discharge This patient has been seen by myself and Dr. Nicolas and this note is written on his behalf <Miguel Robertson - Last Filed: 03/12/18 13:55> (1) Acute pancreatitis Status: Acute Code(s): K85.90 - Acute pancreatitis without necrosis or infection, unspecified - Attending Attestation I have seen and examined the patient. I agree with the assessment and plan as above. <Matt Nicolas - Last Filed: 03/12/18 16:03> <Miguel Robertson - Last Filed: 03/12/18 13:55> (1) Acute pancreatitis Qualifiers: Pancreatitis type: other Acute pancreatitis complication: no infection or necrosis Qualified Code(s): K85.80 - Other acute pancreatitis without necrosis or infection <Matt Nicolas - Last Filed: 03/12/18 16:03> (1) Acute pancreatitis Qualifiers: Pancreatitis type: other Acute pancreatitis complication: no infection or necrosis Qualified Code(s): K85.80 - Other acute pancreatitis without necrosis or infection
[2018-03-13] MEDS: Morphine Sulfate Inj 2 MG/ML Vial IV.PUSH PRN ×2 (02:43→06:43)
--- NOTE | 2018-03-13 08:28 | P.PNIM ---
Subjective Interval history: Follow-up for acute pancreatitis, pleural effusion. Patient seen and examined today. Reports shortness of breath has significantly improved. Reports she failed her walk test and would be needing oxygen. States that she is tolerating her diet of full liquids and will advance it today. As per nursing, had bowel movement yesterday. Denies chest pain, palpitations, headaches, dizziness. Denies fevers, chills, n/v/d. Denies dysuria. Physical Exam Vital signs: Vital Signs 03/12/18 12:01 03/12/18 13:54 03/12/18 16:28 Temperature 98.2 F 98.1 F Pulse Rate 88 91 H 101 H Respiratory Rate 18 16 16 Blood Pressure 112/59 L 124/83 Pulse Oximetry 93 L 92 L 94 L Pulse Oximetry [Exertion on Room Air] Pulse Oximetry [Resting on Room Air] Pulse Oximetry [Resting with Oxygen] 03/12/18 17:03 03/12/18 19:37 03/12/18 19:38 Temperature Pulse Rate 103 H Respiratory Rate 18 Blood Pressure Pulse Oximetry 94 L Pulse Oximetry [Exertion on Room Air] 77 L Pulse Oximetry [Resting on Room Air] 91 L Pulse Oximetry [Resting with Oxygen] 94 L 03/12/18 20:00 03/13/18 00:00 03/13/18 04:00 Temperature 97.8 F 98.6 F 98.0 F Pulse Rate 105 H 97 H 90 Respiratory Rate 16 17 17 Blood Pressure 112/64 117/58 L 110/64 Pulse Oximetry 94 L 95 94 L Pulse Oximetry [Exertion on Room Air] Pulse Oximetry [Resting on Room Air] Pulse Oximetry [Resting with Oxygen] 03/13/18 08:00 03/13/18 08:03 Temperature 98.2 F Pulse Rate 86 89 Respiratory Rate 18 18 Blood Pressure 126/78 Pulse Oximetry 93 L 95 Pulse Oximetry [Exertion on Room Air] Pulse Oximetry [Resting on Room Air] Pulse Oximetry [Resting with Oxygen] Intake & Output 03/12/18 03/13/18 03/13/18 18:59 06:59 18:59 Intake Total 100 / 100 200 / 200 Output Total 400 / 400 Balance -300 / -300 200 / 200 Weight 47.4 kg Intake: IV 100 / 100 200 / 200 Merrem Inj 1,000 MG In NS Inj 100 / 100 200 / 200 100 ML @ 200 mls/hr IV.SIG Q8H [facility] Rx#:[id number] Output: Urine 400 / 400 Other: # Voids 2 3 Date of Last Bowel Movement 03/04/18 03/12/18 03/12/18 # Bowel Movements 1 Narrative: GENERAL: This is a well-developed patient, in no apparent distress. SKIN: Warm and dry. CARDIOVASCULAR: Regular rate and rhythm without murmurs, gallops, or rubs. RESPIRATORY: Diminished bases, moderate air entry. No wheezes, rales, or rhonchi. GASTROINTESTINAL: Abdomen soft. Bowel Sounds normoactive x4. Tender to palpation in mid epigastric area MUSCULOSKELETAL: Extremities without clubbing, cyanosis. Minimal edema left upper extremity, no erythema noted NEUROLOGICAL: Awake and alert. No focal neuro deficit. Moves all extremities. Normal speech. Results - Labs CBC & Chem 7: 03/12/18 04:18 03/13/18 07:13 Microbiology 03/11/18 15:10 Fluid - Pancreatic Fluid Gram Stain - Final 03/11/18 15:10 Fluid - Pancreatic Fluid Wound Culture - Preliminary No growth in 24 hours Assessment and Plan - Assessment (1) Acute pancreatitis Code(s): K85.90 - Acute pancreatitis without necrosis or infection, unspecified Status: Acute - Plan patient is a 58 y/o F with a diagnosis of osteoarthritis, hx of right ureteral stricture which led to right sided kidney failure. She has an extensive tobacco smoking hx. She presents to the ED with complaints of abdominal pain for the past few days that worsened yesterday. She also began to have nausea and vomiting. She has a hx of pancreatitis several years ago however is unsure of what the cause was at that time. She denies any recent alcohol use. She denies any fevers or chills. Sepsis (tachycardic, leukocytosis, possible pancreatitis related infection) Acute pancreatitis Ct abd/pelv shows dilation of the cbd 1.3 cm with 9mm round mass that extends into the duodenum. Pancreas shows findings consistent with pancreatitis [place] [id number] upon admission and currently 344. -GI is following. 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 Endoscopic ultrasound was completed on 03/07/2018 -shows pancreatic pseudocyst/necrosis. -Patient is on Meropenem. ID following. As per ID patient will not continue meropenem, pending advance diet and tolerance. -EUS done by Dr. Munoz, There was a large collection of fluid noted at the tail end of the pancreas with some noted debris using a 19-gauge needle we were able to obtain about 60 cc of bilious type fluid that looks clear otherwise the likelihood that this is infected is low this will be sent for analysis otherwise pancreatic parenchyma actually appeared unremarkable and homogeneous and isoechoic with a normal pancreatic duct -Continues to have midepigastric pain. [place] given for pain. [email or web address] Prescription Drug Monitoring Database has been queried and verified prior to prescribing the controlled substance. Patient is getting [place] 10/325 mg from the [place] -Advance diet as tolerated. Cleared by GI Hx Smoking, >30 years, Possible underlying COPD Left sided pleural effusion Cough -WBC around 22--> 17-->18.8 -Sputum grew normal jt. Pleural fluid no growth to date -US guided left thoracentesis on 03/07/2018, 700 mL fluid removal -BC NGTD -O2 nasal cannula as needed, keep O2 sat greater than 92% -Duo nebs, Symbicort -Continue to have shortness of breath. -Repeat chest x-ray with bilateral pleural effusion. Will DC IV fluids. Lasix. -Failed walk test. Will be needing O2. [facility] Tobacco abuse -Patient advised to quit smoking. Approximately 15 minutes was spent counseling the patient is cessation techniques. Understands continuing to smoke could lead to stroke and , worsening of COPD. Benefits of stopping also presented to the patient. Patient verbalized desire to "give it a try" regarding smoking cessation and its benefits. -Nicotine patch recommended -Duo nebs as needed/ Scheduled Left upper extremity edema -Venous Doppler study showed occlusive thrombus within the mid to distal cephalic vein. The remaining veins of the left upper extremity are patent -Cephalic vein thrombus is superficial and possibly caused by peripherally inserted catheter. Catheter has been removed. We will not start patient on prolonged anti-coagulation. Currently on heparin subcu for DVT prophylaxis. Elevate upper extremity, warm compresses. -Monitor for now Full code. Lovenox for DVT prophylaxis. Discussed Condition With: Patient, nursing, CM Discharge Planning: Plan to DC home tomorrow when oxygen is set up (1) Acute pancreatitis Qualifiers: Pancreatitis type: other Acute pancreatitis complication: no infection or necrosis Qualified Code(s): K85.80 - Other acute pancreatitis without necrosis or infection
[2018-03-13] MEDS: Budesonide-Formoterol 160/4.5 MCG 6 GM Inhaler INH SCH ×2 (08:37→21:45)
[2018-03-13] MEDS: Senna/Docusate Sodium 8.6/50 MG Tablet PO SCH ×2 (08:39→21:45)
[2018-03-13] MEDS: Enoxaparin Inj 30 MG/0.3 ML Syringe SQ SCH (10:04)
[2018-03-13 10:18] LABS: Carbon Dioxide 32.3 meq/L (21.0-32.0); Potassium 4.1 meq/L (3.5-5.1)
[2018-03-14 05:30] VITALS: TEMP 97.8
--- NOTE | 2018-03-14 08:21 | P.DS ---
Date of admission: 03/04/18 12:47 Primary care physician: [facility] Attending physician on discharge: Andrey Albert Anticipated date of discharge: 03/14/18 Brief History from admission: This patient is a 58 y/o F with a diagnosis of osteoarthritis, hx of right ureteral stricture which led to right sided kidney failure. She has an extensive tobacco smoking hx. She presents to the ED with complaints of abdominal pain for the past few days that worsened yesterday. She also began to have nausea and vomiting. She has a hx of pancreatitis nearly one yr ago however is unsure of what the cause was at that time. She denies any recent alcohol use. She denies any fevers or chills. No other complaints from the patient. No chest pain, no diarrhea, last bm two days ago. PMH right ureteral stricture, osteoarthritis surg hx right hand surgery x 5 after a crush injury in the social hx 1 / ppd tobacco smoking since age 19, drinks etoh socially, denies hx of drug use fam hx cad in her father Patient update on day of discharge: Follow-up for acute pancreatitis, pleural effusion. Patient seen and examined today. Reports she is doing a lot better. States she has the oxygen delivered last night. States she was able to ambulate with assistance, states she may need walker because she is unsteady as per physical therapy. Denies chest pain , palpitations, headaches, dizziness. Denies fevers, chills, n/v/d. Denies dysuria. DS: Diagnosis - Discharge Diagnosis (1) Acute pancreatitis Status: Acute (2) COPD suggested by initial evaluation Status: Acute (3) Pleural effusion associated with pancreatitis Status: Acute DS: Medications - Discharge Medications Prescriptions: albuterol sulfate [Ventolin HFA] 2 puff INH Q4H PRN 30 Days #1 g PRN Reason: Shortness of Breath/ Wheezing budesonide-formoterol [Symbicort] 2 puff INH BID 30 Days #1 g nicotine 1 patch TRANSDERMAL DAILY PRN #30 ea PRN Reason: Smoking cessation potassium chloride 20 meq PO DAILY #7 tab sennosides-docusate sodium [Senna Plus] 1 tab PO BID #60 tab DS: Summary Hospital Course: Patient is a 58 y/o F with a diagnosis of osteoarthritis, hx of right ureteral stricture which led to right sided kidney failure. She has an extensive tobacco smoking hx. She presents to the ED with complaints of abdominal pain for the past few days that worsened yesterday. She also began to have nausea and vomiting. She has a hx of pancreatitis several years ago however is unsure of what the cause was at that time. She denies any recent alcohol use. She denies any fevers or chills. Patient found to have sepsis, tachycardia, leukocytosis, possible pancreatitis related infection has been suspected. She was in acute pancreatitis. CT of the abdomen and pelvis shows dilation of the cbd 1.3 cm with 9mm round mass that extends into the duodenum. Pancreas showing findings consistent with pancreatitis. Her lipase was significantly elevated [id number]. Gastroenterology specialist have been consulted and has been following the patient during inpatient hospitalization. 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 Endoscopic ultrasound was completed on 03/07/2018 - shows pancreatic pseudocyst/necrosis. Infectious disease has followed the patient and started on meropenem and has continued to use of meropenem. Infectious disease states that patient will not continue on meropenem if diet has been advanced and tolerated. EUS was also done were and it showed a large collection of fluid noted at the tail end of the pancreas with some noted debris using a 19-gauge needle we were able to obtain about 60 cc of bilious type fluid that looks clear otherwise the likelihood that this is infected is low this will be sent for analysis otherwise pancreatic parenchyma actually appeared unremarkable and homogeneous and isoechoic with a normal pancreatic duct. Patient continues to have mild to moderate midepigastric pain when she states that she had that before with her prior admissions of pancreatitis and it usually goes away for a very long time. [place] has been given to the patient. She usually takes it at home. [employer] Prescription Drug Monitoring Database has been queried and verified prior to prescribing the controlled substance. [facility] [place] [facility] of her [facility] medication. Her diet has been advanced to regular soft diet which she tolerated. She has been cleared by gastroenterology. She is advised to follow-up in your office in 1-2 weeks. Patient has history of smoking greater than 30 years possibly has underlying COPD. She developed left-sided effusion during hospitalization with US guided left thoracentesis done 03/07/18 with fluid removal of 700 mL. Blood cultures were done and other cultures which remain negative to date. She was given O2 nasal cannula which kept her saturation greater than 90%. Patient was also given nebulization and started on Symbicort which has relieved most of her symptoms. Repeat chest x-ray was done with small bilateral pleural effusion. She will start taking Lasix 20 mg daily with KCl supplementation. She will need a repeat BMP in the outpatient. She failed her walk test and will be needing O2 nasal cannula continuously at home. Smoking cessation counseling, approximately 15 minutes was spent counseling the patient is cessation techniques. Understands continuing to smoke could lead to stroke and , worsening of COPD. Benefits of stopping also presented to the patient. Patient verbalized desire to "give it a try" regarding smoking cessation and its benefits. Nicotine patch recommended patient states that she has it at home and plans to use it to quit. Due to prolonged hospitalization, patient developed generalized weakness. Physical therapy has followed the patient and did some evaluation and will be needing home health care physical therapy/Occupational Therapy. Patient has met maximal benefits of hospitalization. Clinically stable for discharge with home health care. - Time Spent with Patient Total time spent providing and/or coordinating discharge services: Greater than 30 minutes Exam Vital signs: Vital Signs 03/13/18 12:00 03/13/18 12:14 03/13/18 16:00 Temperature 97.9 F 98.1 F Pulse Rate 87 87 88 Respiratory Rate 20 18 20 Blood Pressure 112/60 114/68 Pulse Oximetry 96 95 03/13/18 20:00 03/13/18 20:35 03/14/18 00:00 Temperature 97.3 F L 98.1 F Pulse Rate 88 100 H 87 Respiratory Rate 19 18 18 Blood Pressure 97/55 L 96/51 L Pulse Oximetry 96 97 97 03/14/18 04:00 Temperature 97.8 F Pulse Rate 93 H Respiratory Rate 18 Blood Pressure 107/58 L Pulse Oximetry 93 L Intake & Output 03/13/18 03/14/18 03/14/18 18:59 06:59 18:59 Intake Total 840 / 840 200 / 200 Output Total 900 / 900 Balance 840 / 840 -700 / -700 Weight 48 kg Intake: IV 100 / 100 200 / 200 Merrem Inj 1,000 MG In NS Inj 100 / 100 200 / 200 100 ML @ 200 mls/hr IV.SIG Q8H [facility] Rx#:[id number] Oral 740 / 740 Output: Urine 900 / 900 Other: # Incontinent Voids 2 Date of Last Bowel Movement 03/12/18 03/12/18 Narrative: GENERAL: This is a well-developed patient, in no apparent distress, appears chronically ill. SKIN: Warm and dry. CARDIOVASCULAR: Regular rate and rhythm without murmurs, gallops, or rubs. RESPIRATORY: Diminished bases, moderate air entry. No wheezes, rales, or rhonchi. O2 nasal cannula present. GASTROINTESTINAL: Abdomen soft. Bowel Sounds normoactive x4. Tender to palpation in mid epigastric area MUSCULOSKELETAL: Extremities without clubbing, cyanosis. NEUROLOGICAL: Awake and alert. No focal neuro deficit. Moves all extremities. Normal speech. Results Procedures completed during hospitalization: MRCP 03/04/18 Endoscopic ultrasound 03/07/2018 EUS with FNA 03/11/18 Pending studies at discharge: Pending at discharge 03/11/18 Cytology [PTH] Routine Labs on day of discharge: Labs from last 24 hours 03/13/18 07:13 Sodium 138 Potassium 4.1 Chloride 98 Carbon Dioxide 32.3 H Anion Gap 8 BUN 6 L Creatinine 0.75 Estimated GFR 79 L Random Glucose 82 Calcium 8.0 L Preliminary micro results at discharge 03/11/18 15:10 Wound Culture - Preliminary Fluid - Pancreatic Fluid No growth in 48 hours - Impressions ITS Impressions Abdomen/Pelvis CT 03/04/18 09:54 CONCLUSION: 1. Dilatation of the common bile duct measuring up to 1.3 cm with an 8 to 9 mm round soft tissue masslike structure which extends into the fluid-filled duodenum. 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 The gallbladder is unremarkable. 2. Fluid in the left upper abdomen surrounding portions of the body and tail the pancreas as well as portions of the spleen. The finding is nonspecific and the differential diagnosis includes pancreatitis. The left kidney appears unremarkable. 3. Small atrophic right kidney. Cholangiopancreatography MRI 03/04/18 15:14 CONCLUSION: 1. Dilated common bile duct and is a stricture that appears to be smooth involving the distal common bile duct at the level of the ampulla with possible slight invagination into the lumen of the duodenum. May consider further evaluation with direct visualization and endoscopy. Thoracentesis Ultrasound 03/07/18 08:00 CONCLUSION: 1. Uncomplicated thoracentesis. 600 cc of dark brown fluid was removed. Venous Doppler Study 03/10/18 00:00 CONCLUSION: 1. Occlusive thrombus within the mid to distal cephalic vein. 2. The remaining veins of the left upper extremity are patent. Chest X-Ray 03/11/18 00:00 CONCLUSION: 1. Worsening small bilateral pleural effusions with associated airspace disease at the lung bases. Discharge Plan - Discharge Disposition Patient Disposition: W/Home Health Service - Discharge Condition Condition: Stable - Discharge Order Discharge Orders: Discharge Order (Routine); Ordered 03/14/18 Ordered By: Cristiana Mccray - Discharge Details Anticipated Discharge Date: 03/14/18 Discharge Comment: DC when HHC is arranged - Physicians Team Primary Care Provider: [facility] Attending Provider: Andrey Albert Other Providers: Jesus Levine MD ; Candi Laguna MD
--- NOTE | 2018-03-14 08:25 | P.DCO ---
- Physical Therapy Order: Evaluate and treat - Occupational Therapy Order: Evaluate and treat - Home Health Nursing Order: Signs/symptoms of disease process, Oxygen administration education, Nursing assessment with vital signs - Case Management Consult Case Management Consult-Home Health: Yes - Certification I have seen patient Felecia Desai on 03/14/18. My clinical findings support the need for the requested home health care services because: Patient has SOB, Deconditioned with increased weakness, High risk of falls I certify that my clinical findings support that this patient is homebound because: Impaired cognitive ability/safety, Hx COPD - exertion dyspnea/weakness, Unsteady gait/balance, Poor cardiac reserve
[2018-03-14 08:54] VITALS: O2SAT 94
[2018-03-14] MEDS: Enoxaparin Inj 30 MG/0.3 ML Syringe SQ SCH (09:00)
[2018-03-14] MEDS: Senna/Docusate Sodium 8.6/50 MG Tablet PO SCH (09:00)
[2018-03-14] MEDS: Budesonide-Formoterol 160/4.5 MCG 6 GM Inhaler INH SCH (09:01)
[2018-03-14 09:04] VITALS: BP 116/57; PULSE 94; RESP 20
[2018-03-14 10:33] LABS: Calcium 8.5 mg/dL (8.5-10.1); Carbon Dioxide 31.9 meq/L (21.0-32.0); Potassium 4.3 meq/L (3.5-5.1)
--- NOTE | 2018-03-14 11:20 | P.PNID ---
Subjective Remarks: ID coverage. Covering for Dr. Laguna. Notes reviewed. Asked to see the patient for clearance for discharge. States that she has no abdominal pain. Eating solid foods. Afebrile. Eyes chills. Patient is a 58-year-old female, presented to the hospital with several day history of severe left-sided abdominal pain and into the flank area on the left side. She also started having nausea and vomiting. She has not had any fever chills or sweats. Patient apparently had a prior episode of pancreatitis about 9 years ago and this was after she had problem with her kidneys and had ureteral stricture found. After that episode of pancreatitis, she has not had any recurrence and has been doing well. She denies any significant alcohol abuse. She has not been on any new medications. Has not had any respiratory problem. She denies any dysuria. On presentation she had a white count of 17, 000, and is up to 21,000. Her lipase was up to 28,000. 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 T Infectious disease consultation has been requested to assist with evaluation and treatment of patient with pancreatitis. Antibiotics: Meropenem Past Medical History: Depression Osteoporosis Pancreatitis Allergies/Adverse Reactions: Allergies No Known Allergies Allergy (Verified 03/04/18 09:54) Objective Vital Signs 03/13/18 12:00 03/13/18 12:14 03/13/18 16:00 Temperature 97.9 F 98.1 F Pulse Rate 87 87 88 Respiratory Rate 20 18 20 Blood Pressure 112/60 114/68 Pulse Oximetry 96 95 03/13/18 20:00 03/13/18 20:35 03/14/18 00:00 Temperature 97.3 F L 98.1 F Pulse Rate 88 100 H 87 Respiratory Rate 19 18 18 Blood Pressure 97/55 L 96/51 L Pulse Oximetry 96 97 97 03/14/18 04:00 03/14/18 07:00 03/14/18 08:00 Temperature 97.8 F 97.8 F Pulse Rate 93 H 90 94 H Respiratory Rate 18 16 20 Blood Pressure 107/58 L 116/57 L Pulse Oximetry 93 L 95 03/14/18 08:54 Temperature Pulse Rate Respiratory Rate Blood Pressure Pulse Oximetry 94 L Intake & Output 03/13/18 03/14/18 03/14/18 18:59 06:59 18:59 Intake Total 840 / 840 200 / 200 Output Total 900 / 900 Balance 840 / 840 -700 / -700 Weight 48 kg Intake: IV 100 / 100 200 / 200 Merrem Inj 1,000 MG In NS Inj 100 / 100 200 / 200 100 ML @ 200 mls/hr IV.SIG Q8H [facility] Rx#:[id number] Oral 740 / 740 Output: Urine 900 / 900 Other: # Incontinent Voids 2 Date of Last Bowel Movement 03/12/18 03/12/18 03/11/18 15:10 Fluid - Pancreatic Fluid Gram Stain - Final 03/11/18 15:10 Fluid - Pancreatic Fluid Wound Culture - Final No growth in 72 hours (aerobically and anaerobically ) Lab - Chemistry Results 03/13/18 03/14/18 07:13 07:18 Sodium 138 137 Potassium 4.1 4.3 Chloride 98 96 L Carbon Dioxide 32.3 H 31.9 Anion Gap 8 9 BUN 6 L 6 L Creatinine 0.75 0.81 Estimated GFR 79 L 72 L Random Glucose 82 84 Calcium 8.0 L 8.5 Imaging: ITS Impressions Abdomen/Pelvis CT 03/04/18 09:54 CONCLUSION: 1. Dilatation of the common bile duct measuring up to 1.3 cm with an 8 to 9 mm round soft tissue masslike structure which extends into the fluid-filled duodenum. 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 The gallbladder is unremarkable. 2. Fluid in the left upper abdomen surrounding portions of the body and tail the pancreas as well as portions of the spleen. The finding is nonspecific and the differential diagnosis includes pancreatitis. The left kidney appears unremarkable. 3. Small atrophic right kidney. Cholangiopancreatography MRI 03/04/18 15:14 CONCLUSION: 1. Dilated common bile duct and is a stricture that appears to be smooth involving the distal common bile duct at the level of the ampulla with possible slight invagination into the lumen of the duodenum. May consider further evaluation with direct visualization and endoscopy. Thoracentesis Ultrasound 03/07/18 08:00 CONCLUSION: 1. Uncomplicated thoracentesis. 600 cc of dark brown fluid was removed. Venous Doppler Study 03/10/18 00:00 CONCLUSION: 1. Occlusive thrombus within the mid to distal cephalic vein. 2. The remaining veins of the left upper extremity are patent. Chest X-Ray 03/11/18 00:00 CONCLUSION: 1. Worsening small bilateral pleural effusions with associated airspace disease at the lung bases. Physical Exam: GENERAL: awake and alert, not in respiratory distress. SKIN: Cool and dry. No generalized rash. EYES: [place] conjunctiva. No petechia or hemorrhage. No scleral icterus. No injection or drainage. EARS, NOSE AND THROAT: Mucous membranes pink and moist. No oral lesions noted. No exudate. No oral thrush. NECK: Trachea midline. Supple and not tender, no meningeal signs CARDIOVASCULAR: Regular rate and rhythm, tachycardic. No murmurs, rubs or gallops heard RESPIRATORY: Decreased breath sounds at L base ABDOMEN: Soft. Mildly distended, bowel sounds hypoactive, no tenderness. No guarding. No rebound. EXTREMITIES: No clubbing, cyanosis, or edema. No calf tenderness. NEUROLOGICAL: Grossly non-focal. PSYCHIATRIC: Normal affect, calm and cooperative. LINE: No evidence of infection Assessment and Plan - Plan Impression Severe pancreatitis. Stable. Pain is resolved. Possible sepsis due to pancreatitis, better Leukocytosis due to pancreatitis, decreasing Had cough, and pleural effusion - ?sympathetic effusion - ?PNA Had dil CBD Recommendation Discontinue meropenem. Okay to discharge from infectious disease standpoint without antibiotics. Discussed with medical attending.
[2018-03-17 15:31] LABS: Lipase, Body Fluid 0 U/L
== END 2018-03-14 12:08 | disposition home health service (06) | DRG 871 ==
LOC: NEPE 09:44 → NEDA 12:47 → N05 13:38
PROVIDERS: ADMIT Internal Medicine; ATTEND Internal Medicine
CPT/HCPCS: 32555; 43242; 43259; 71010; 71020; 71045; 71046; 74177; 74183; 76377; 80048; 80053; 81001; 82150; 82945; 83605; 83690; 83735; 84145; 84155; 84157; 85025; 85027; 85610; 85730; 86301; 87015; 87040; 87070; 87116; 87205; 87206; 88112; 88305; 88312; 89051; 93005; 93971; 94618; 94620; 94640; 94664; 94665; 97162; A9585; C1729; J1170; J1644; J1650; J1940; J2185; J2270; J2405; J3475; J3480; J7030; J7050; J7120; Q9967